=== PATIENT | male | born 1960 | race Caucasian/White ===

== ENCOUNTER → 2016-06-09 | Outpatient (CLI) | payer OTHER ==
--- NOTE | 2016-06-09 15:04 | XR ---
EXAMINATION TYPE: XR shoulder complete RT DATE OF EXAM: 06/09/2016 3:00 PM COMPARISON: NONE HISTORY: Pain The osseous structures are intact. There is no acute fracture or dislocation. Hypertrophic change of the AC joint noted. IMPRESSION: 1. AC joint arthropathy with spurs seen extending from the clavicle and acromion.
== END | disposition home or self-care (01) ==
LOC: RADXRMAIN 14:31
PROVIDERS: ATTEND Physician Assistant
DX: M12.811 Other specific arthropathies, not elsewhere classified, right shoulder (principal); M75.91 Shoulder lesion, unspecified, right shoulder

== ENCOUNTER 2016-08-05 11:08 | Emergency (ER) | payer OTHER ==
[2016-08-05] MEDS ORDERED: ONDANSETRON 4 MG/2 ML VIAL IVP STA (12:38)
[2016-08-05] MEDS ORDERED: KETOROLAC 30 MG/ML 1 ML VIAL IVP STA (12:38)
[2016-08-05] MEDS ORDERED: SODIUM CHLORIDE 0.9% 1,000 ML IV ONE (12:39)
--- NOTE | 2016-08-05 12:49 | ED ---
General Adult HPI - General Chief complaint: Urogenital Stated complaint: HEMATURIA Time Seen by Provider: 08/05/16 12:31 Source: patient Mode of arrival: ambulatory Limitations: no limitations - History of Present Illness Initial comments: 56-year-old male patient presents to emergency Department with complaints of right flank pain and hematuria. Patient states that he has had the flank pain for the last 3-4 days, he describes it as a dull achy pain. Patient states this morning with his initial urination he had bright red blood present. Patient states he has continued to have hematuria throughout the day. Patient denies any fever or chills. Reports nausea without vomiting. He states that he did have similar symptoms in the past, but they were unable to find a cause. Patient does have a history significant for prostate cancer s/p prostatectomy. He denies any chest pain, shortness of breath, headache, dizziness, weakness, dysuria, urinary retention, urgency, or frequency - Related Data Home Medications Medication Instructions Recorded Confirmed HYDROcodone/APAP 10-325MG [[place] 1 tab PO QID PRN 08/05/16 08/05/16 10] Naproxen 500 mg PO Q12HR PRN 08/05/16 08/05/16 Previous Rx's Medication Instructions Recorded Ketorolac [Toradol] 10 mg PO Q8HR #15 tab 08/05/16 Ondansetron Odt [Zofran Odt] 4 mg PO Q8HR PRN #10 tab 08/05/16 Allergies Allergy/AdvReac Type Severity Reaction Status Date / Time No Known Allergies Allergy Verified 08/05/16 13:05 Review of Systems ROS Statement: Those systems with pertinent positive or pertinent negative responses have been documented in the HPI. ROS Other: All systems not noted in ROS Statement are negative. Past Medical History Past Medical History: Cancer, COPD, Osteoarthritis (OA), Prostate Disorder Additional Past Medical History / Comment(s): PROSTATE CANCER History of Any Multi-Drug Resistant Organisms: None Reported Past Surgical History: Appendectomy, Orthopedic Surgery, Prostate Surgery Additional Past Surgical History / Comment(s): 06/17/14 Robotic-assisted laparoscopic prostatectomy with bilateral lymphadenectomy, ARTHROSCOPIC RIGHT KNEE, LEFT WRIST,LT ELBOW AND LEFT SHOULDER Past Anesthesia/Blood Transfusion Reactions: No Reported Reaction Past Psychological History: No Psychological Hx Reported Additional Psychological History / Comment(s): Has a long-standing female friend. 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 This work did proceed his surgical intervention. He does not have experience. He does not have travel history. There are no animal exposures. He does not recall any recent ill contacts. Smoking Status: Current every day smoker Past Alcohol Use History: Occasional Past Drug Use History: Marijuana Additional Drug Use History / Comment(s): USED 1 MONTH AGO - Past Family History Father Family Medical History: Unable to Obtain Mother Family Medical History: Diabetes Mellitus General Exam Limitations: no limitations General appearance: alert, in no apparent distress Eye exam: Present: normal appearance, PERRL, EOMI. Absent: scleral icterus, conjunctival injection, periorbital swelling ENT exam: Present: normal exam, mucous membranes moist Neck exam: Present: normal inspection. Absent: tenderness, meningismus, lymphadenopathy Respiratory exam: Present: normal lung sounds bilaterally. Absent: respiratory distress, wheezes, rales, rhonchi, stridor Cardiovascular Exam: Present: regular rate, normal rhythm, normal heart sounds. Absent: systolic murmur, diastolic murmur, rubs, gallop, clicks GI/Abdominal exam: Present: soft, normal bowel sounds. Absent: distended, tenderness, guarding, rebound, rigid Extremities exam: Present: normal inspection, full ROM, normal capillary refill. Absent: tenderness, pedal edema, joint swelling, calf tenderness Back exam: Present: normal inspection. Absent: CVA tenderness (R), CVA tenderness (L) Neurological exam: Present: alert, oriented X3, CN II-XII intact Psychiatric exam: Present: normal affect, normal mood Skin exam: Present: warm, dry, intact, normal color. Absent: rash Course Vital Signs 08/05/16 08/05/16 11:15 14:12 Temperature 97.7 F 98 F Pulse Rate 60 79 Respiratory 18 16 Rate Blood Pressure 157/70 136/78 O2 Sat by Pulse 97 98 Oximetry Medical Decision Making - Medical Decision Making 56-year-old male patient presented to emergency department for evaluation of left flank pain and hematuria. Serum labs are unremarkable. Urine did show large amount of blood. Pain is improved with fluids and pain medication. CT was negative for any nephrolithiasis or hydronephrosis. Patient will be discharged home with pain medication and nausea medication. Instructions to follow up with urologist within 1-2 days. Patient is also instructed to return for any new, worsening, or concerning symptoms. Patient verbalized understanding and agrees with this plan. - Lab Data Result diagrams: 08/05/16 13:00 08/05/16 13:00 Lab Results 08/05/16 08/05/16 08/05/16 Range/Units 13:00 13:00 13:00 WBC 6.8 (3.8-10.6) k/uL RBC 4.96 (4.30-5.90) m/uL Hgb 15.6 (13.0-17.5) gm/dL Hct 45.6 (39.0-53.0) % MCV 91.8 (80.0-100.0) fL MCH 31.4 (25.0-35.0) pg MCHC 34.2 (31.0-37.0) g/dL RDW 12.6 (11.5-15.5) % Plt Count 243 (150-450) k/uL Neutrophils % 50 % Lymphocytes % 36 % Monocytes % 6 % Eosinophils % 4 % Basophils % 2 % Neutrophils # 3.4 (1.3-7.7) k/uL Lymphocytes # 2.5 (1.0-4.8) k/uL Monocytes # 0.4 (0-1.0) k/uL Eosinophils # 0.3 (0-0.7) k/uL Basophils # 0.1 (0-0.2) k/uL Sodium 143 (137-145) mmol/L Potassium 4.7 (3.5-5.1) mmol/L Chloride 106 (98-107) mmol/L Carbon Dioxide 25 (22-30) mmol/L Anion Gap 12 mmol/L BUN 16 (9-20) mg/dL Creatinine 0.86 (0.66-1.25) mg/dL Est GFR (MDRD) Af Amer >60 (>60 ml/min/1.73 sqM) Est GFR (MDRD) Non-Af >60 (>60 ml/min/1.73 sqM) Glucose 125 H (74-99) mg/dL Calcium 9.3 (8.4-10.2) mg/dL Total Bilirubin 0.5 (0.2-1.3) mg/dL AST 22 (17-59) U/L ALT 42 (21-72) U/L Alkaline Phosphatase 77 (38-126) U/L Total Protein 7.4 (6.3-8.2) g/dL Albumin 4.4 (3.5-5.0) g/dL Amylase 62 (30-110) U/L Lipase 201 (23-300) U/L Urine Color Light Red Urine Appearance Clear (Clear) Urine pH 5.0 (5.0-8.0) Ur Specific Stella 1.016 (1.001-1.035) Urine Protein Trace H (Negative) Urine Glucose (UA) Negative (Negative) Urine Ketones Negative (Negative) Urine Blood Large H (Negative) Urine Nitrite Negative (Negative) Urine Bilirubin Negative (Negative) Urine Urobilinogen <2.0 (<2.0) mg/dL Ur Leukocyte Esterase Small H (Negative) Urine RBC >182 H (0-5) /hpf Urine WBC 9 H (0-5) /hpf Urine Mucus Rare H (None) /hpf - Radiology Data Radiology results: report reviewed, image reviewed X-ray KUB impression by Dr. Oconnor states that he is suspicious that there is a left-sided nephrolithiasis. CT of the abdomen and pelvis without contrast reveals no evidence of hydronephrosis or nephrolithiasis. Uncomplicated diverticular change in the left side of the colon. It degenerative changes within the spine. Disposition Clinical Impression: Hematuria, Flank pain Disposition: HOME SELF-CARE Condition: Stable Instructions: Hematuria (ED), Flank Pain (ED) Additional Instructions: Follow-up with urology. Take pain and nausea medication as needed. Increase fluids. Return for any new, worsening, or concerning symptoms. Prescriptions: Ketorolac [Toradol] 10 mg PO Q8HR #15 tab Ondansetron Odt [Zofran Odt] 4 mg PO Q8HR PRN #10 tab PRN Reason: Nausea Referrals: Juan Islas MD [Primary Care Provider] - 1-2 days Juan Rosas MD [STAFF PHYSICIAN] - 1-2 days Time of Disposition: 15:28
[2016-08-05 13:13] LABS: Basophils # (A) 0.1 k/uL (0-0.2); Basophils % (A) 2 %; Eosinophils # (A) 0.3 k/uL (0-0.7); Eosinophils % (A) 4 %; HCT 45.6 % (39.0-53.0); HDW 2.67; HGB 15.6 gm/dL (13.0-17.5); Luc # (Auto) 0.18; Luc % (Auto) 3; Lymphocytes # (A) 2.5 k/uL (1.0-4.8); Lymphocytes % (A) 36 %; MCH 31.4 pg (25.0-35.0); MCHC 34.2 g/dL (31.0-37.0); MCV 91.8 fL (80.0-100.0); Mean Platelet Volume 7.1; Monocytes # (A) 0.4 k/uL (0-1.0); Monocytes % (A) 6 %; Neutrophils # (A) 3.4 k/uL (1.3-7.7); Neutrophils % (A) 50 %; RBC 4.96 m/uL (4.30-5.90); RDW 12.6 % (11.5-15.5); WBC 6.8 k/uL (3.8-10.6); WBC (Perox) 6.99
[2016-08-05 13:22] LABS: Appearance,Urine Clear (Clear); Bilirubin,Urine Negative (Negative); Glucose,Urine (UA) Negative (Negative); Ketones,Urine Negative (Negative); Leukocyte Esterase,Urine Small (Negative); Mucus,Urine Rare /hpf; Nitrite,Urine Negative (Negative); Particle Count 5059; Protein,Urine Trace (Negative); RBC,Urine >182 /hpf (0-5); Specific Gravity,Urine 1.016 (1.001-1.035); UA Billing (MACRO vs. MICRO) MICRO; Urobilinogen,Urine <2.0 mg/dL (<2.0); WBC,Urine 9 /hpf (0-5)
[2016-08-05 13:27] LABS: ALT 42 U/L (21-72); AST 22 U/L (17-59); Alkaline Phosphatase 77 U/L (38-126); Amylase 62 U/L (30-110); Anion Gap 12 mmol/L; Blood Urea Nitrogen 16 mg/dL (9-20); Calcium 9.3 mg/dL (8.4-10.2); Carbon Dioxide 25 mmol/L (22-30); Chloride 106 mmol/L (98-107); Glucose 125 mg/dL (74-99); Non-African American GFR(MDRD) >60 (>60 ml/min/1.73 sqM); Potassium 4.7 mmol/L (3.5-5.1); Sodium 143 mmol/L (137-145); Total Bilirubin 0.5 mg/dL (0.2-1.3); Total Protein 7.4 g/dL (6.3-8.2)
--- NOTE | 2016-08-05 13:33 | XR ---
EXAMINATION TYPE: XR KUB DATE OF EXAM ORDERED: 08/05/2016 1:15 PM HISTORY: Pain. COMPARISON: None. FINDINGS: The abdominal IMPRESSION: I'M SUSPICIOUS THAT THERE IS A LEFT-SIDED NEPHROLITHIASIS.
[2016-08-05 14:12] VITALS: RESP 16; TEMP 98
[2016-08-05] MEDS ORDERED: HYDROmorphone 1 MG/ML 1 ML SYRINGE IVP STA (14:20)
--- NOTE | 2016-08-05 15:23 | CT ---
EXAMINATION TYPE: CT abdomen pelvis wo con DATE OF EXAM: 08/05/2016 1:58 PM COMPARISON: Previous study dated 11/05/2014. HISTORY: Right flank pain. CT DLP: 1270 mGycm Automated exposure control for dose reduction was used. FINDINGS: Visualized portions of the lungs are clear. There is no pleural or pericardial fluid. The h eart is not enlarged. Within the abdomen, the liver, spleen and gallbladder are normal. Both adrenal glands are normal. There is no evidence of nephrolithiasis or hydronephrosis. The pancreas is unremarkable. There is no significant retroperitoneal, iliac or inguinal adenopathy. The bladder is not distended. There is diverticular change in the sigmoid colon and throughout the left side of the colon without r adiographic evidence of diverticulitis. The appendix is not visualized. Small bowel loops appear normal. No free fluid and no free air is seen. There is degenerative disc disease and hypertrophic spondylosis throughout the spine. IMPRESSION: 1. NO EVIDENCE OF HYDRONEPHROSIS OR NEPHROLITHIASIS. 2. UNCOMPLICATED DIVERTICULAR CHANGE IN THE LEFT SIDE OF THE COLON. 3. DEGENERATIVE CHANGES WITHIN THE SPINE.
[2016-08-05 15:51] VITALS: BP 103/55; PULSE 56
== END 2016-08-05 15:50 | disposition home or self-care (01) ==
LOC: EC 11:08
DX: R31.9 Hematuria, unspecified (principal); R10.9 Unspecified abdominal pain; Z85.46 Personal history of malignant neoplasm of prostate; Z90.49 Acquired absence of other specified parts of digestive tract; Z90.79 Acquired absence of other genital organ(s)
CPT/HCPCS: 36415; 80053; 82150; 83690; 85025; 81001; 87086; 74000; 74176; 99284; 96374; 96375 ×2; 96361; J2405; J1885; J1170

== ENCOUNTER 2016-12-14 09:51 | Day surgery (SDC) | payer OTHER ==
[2016-12-13 10:47] VITALS: BMI 40.0
[~2016-12-14 09:51] MED LIST: LACTATED RINGERS 1,000 ML IV SCH
[2016-12-14 10:32] VITALS: RESP 16; TEMP 97.6
[2016-12-14] MEDS ORDERED: LIDOCAINE 1% 20 ML VIAL (10MG/ML) FOR IV START INTRADERMA ONE (10:32)
[2016-12-14 10:35] LABS: Glucose,Whole Blood 133 mg/dL (75-99)
[2016-12-14] MEDS ORDERED: PROPOFOL 10 MG/ML 20 ML VIAL IV ONE (11:17)
[2016-12-14] MEDS ORDERED: LIDOCAINE 1% INJ 10MG/ML (20 ML MDV) ONE (11:17)
--- NOTE | 2016-12-14 11:22 | P.GSHP ---
History of Present Illness H&P Date: 12/14/16 Chief Complaint: GERD, screening colonoscopy This is a 56-year-old male referred from Dr. Juan Islas. Patient presents today for EGD for GERD symptoms. He is also having a colonoscopy performed today for screening purposes. Past Medical History Past Medical History: Cancer, COPD, Diabetes Mellitus, Osteoarthritis (OA), Prostate Disorder Additional Past Medical History / Comment(s): Rectal bleeding and emesis with blood,feeling of fullness,incision hernia,PROSTATE CANCER Dx 2013,borderline diabetes History of Any Multi-Drug Resistant Organisms: None Reported Past Surgical History: Appendectomy, Orthopedic Surgery, Prostate Surgery Additional Past Surgical History / Comment(s): 06/17/14 Robotic-assisted laparoscopic prostatectomy with bilateral lymphadenectomy, ARTHROSCOPIC RIGHT KNEE, LEFT WRIST,LT ELBOW AND LEFT SHOULDER Past Anesthesia/Blood Transfusion Reactions: No Reported Reaction Smoking Status: Current every day smoker - Past Family History Father History Unknown: Yes Family Medical History: Unable to Obtain Mother Family Medical History: Diabetes Mellitus Medications and Allergies Home Medications Medication Instructions Recorded Confirmed Type HYDROcodone/APAP 10-325MG [[place] 1 tab PO QID PRN 08/05/16 12/13/16 History 10] Naproxen 500 mg PO Q12HR PRN 08/05/16 12/13/16 History Allergies Allergy/AdvReac Type Severity Reaction Status Date / Time No Known Allergies Allergy Verified 12/14/16 10:14 Surgical - Exam Vital Signs Temp Pulse Resp BP Pulse Ox 97.6 F 66 16 119/71 95 12/14/16 10:30 12/14/16 10:30 12/14/16 10:30 12/14/16 10:30 12/14/16 10:30 - General well developed, no distress - Eyes PERRL - ENT normal pinna - Neck no masses - Respiratory normal expansion - Cardiovascular Rhythm: regular - Abdomen Abdomen: soft, non tender Results - Labs Abnormal Lab Results - Last 24 Hours (Table) 12/14/16 Range/Units 10:29 POC Glucose (mg/dL) 133 H (75-99) mg/dL Assessment and Plan Plan: GERD. We'll perform EGD. We'll also perform screening colonoscopy.
--- NOTE | 2016-12-14 11:48 | P.OP ---
Date of Procedure: 12/14/16 Preoperative Diagnosis: GERD Screening colonoscopy Postoperative Diagnosis: Antral gastritis Mild esophagitis Diverticulosis Sigmoid colon and rectal polyps Procedure(s) Performed: EGD Colonoscopy Implants: Anesthesia: MAC Surgeon: Nathan Farrell Pathology: other (Rectum, sigmoid polyp) Condition: stable Disposition: PACU Indications for Procedure: Operative Findings: Description of Procedure: A she is placed on the endoscopy table in the lateral position. He received IV sedation. The gastroscope placed oropharynx passed in the esophagus and stomach. Scope was then placed through the pylorus. The first and second portion of the duodenum appeared normal. Scope was then brought back the antrum and this appeared mildly inflamed. A biopsies performed. The scope was retroflexed and remainder of the stomach appeared normal. There was a minimal hiatal hernia. The GE junction was at 40 cms. The distal esophagus was mildly inflamed and a biopsies performed. The proximal esophagus appeared normal. Scope was withdrawn for patient. Next digital rectal exam was performed which revealed no abnormalities. The prostate was symmetrical without nodules. The flexible colonoscope was then placed patient anus passed throughout the entire colon. Ileocecal valve was visually's. The cecum, ascending and transverse colon appeared normal. In the descending colon there was a few scattered diverticula. In the; there is more extensive diverticular changes. There was a polyp seen this removed with the snare. Scope was then brought back the rectum and a small polyp was removed the forcep. The scope was then withdrawn remainder of the rectum appeared normal. Scope was withdrawn for patient.
[2016-12-14 13:00] VITALS: BP 127/76; PULSE 60
== END 2016-12-14 13:05 | disposition home or self-care (01) ==
LOC: ORWHC2ENDO 09:51
PROVIDERS: ATTEND Surgery
DX: Z12.11 Encounter for screening for malignant neoplasm of colon (principal); D12.5 Benign neoplasm of sigmoid colon; K62.1 Rectal polyp; K57.30 Diverticulosis of large intestine without perforation or abscess without bleeding; K21.0 Gastro-esophageal reflux disease with esophagitis; K44.9 Diaphragmatic hernia without obstruction or gangrene; J44.9 Chronic obstructive pulmonary disease, unspecified; E11.9 Type 2 diabetes mellitus without complications; K29.50 Unspecified chronic gastritis without bleeding; Z83.3 Family history of diabetes mellitus; F17.200 Nicotine dependence, unspecified, uncomplicated; Z85.46 Personal history of malignant neoplasm of prostate
CPT/HCPCS: 88305; 88342; 45380; 45385; 43239; J2001; J2704

== ENCOUNTER → 2017-01-30 | Outpatient (CLI) | payer OTHER ==
--- NOTE | 2017-01-30 13:41 | XR ---
EXAMINATION TYPE: XR knee complete bilateral DATE OF EXAM: 01/30/2017 COMPARISON: NONE HISTORY: Pain and swelling TECHNIQUE: Four views are submitted. FINDINGS: Hypertrophic changes and narrowing of the joint spaces are seen bilaterally greater on the right. Pat tern of arthropathy is most typical of osteoarthritis. Soft tissue ossification posterior to the righ t knee noted and there are vascular calcifications. No erosive changes. Osseous structures are intact . No acute fracture seen. IMPRESSION: 1. Moderate to severe bilateral osteoarthritis.
== END ==
LOC: RADXRMAIN 12:23
PROVIDERS: ATTEND Family Medicine
DX: M17.0 Bilateral primary osteoarthritis of knee (principal)

== ENCOUNTER → 2017-02-08 | Outpatient (CLI) | payer OTHER ==
[2017-02-08 12:56] LABS: CH 31.5; CHCM 33.5; HDW 2.53; HGB 15.5 gm/dL (13.0-17.5); MCH 31.1 pg (25.0-35.0); MCHC 32.9 g/dL (31.0-37.0); MCV 94.4 fL (80.0-100.0); Mean Platelet Volume 6.4; RBC 4.98 m/uL (4.30-5.90); WBC 7.6 k/uL (3.8-10.6)
== END | disposition home or self-care (01) ==
LOC: LABPAT 11:55
PROVIDERS: ATTEND Surgery
DX: Z01.810 Encounter for preprocedural cardiovascular examination (principal); I49.9 Cardiac arrhythmia, unspecified
CPT/HCPCS: 36415; 85027; 93005

== ENCOUNTER → 2018-03-07 | Outpatient (CLI) | payer MEDICARE, OTHER ==
[2018-03-07 09:50] LABS: Basophils # (A) 0.1 k/uL (0-0.2); Basophils % (A) 1 %; Eosinophils # (A) 0.2 k/uL (0-0.7); Eosinophils % (A) 4 %; HCT 46.6 % (39.0-53.0); HGB 15.3 gm/dL (13.0-17.5); Lymphocytes % (A) 36 %; MCH 30.5 pg (25.0-35.0); MCHC 32.7 g/dL (31.0-37.0); MCV 93.2 fL (80.0-100.0); Mean Platelet Volume 6.3; Monocytes # (A) 0.4 k/uL (0-1.0); Monocytes % (A) 6 %; Neutrophils # (A) 2.9 k/uL (1.3-7.7); Neutrophils % (A) 50 %; Platelet Count 257 k/uL (150-450); RDW 12.8 % (11.5-15.5); WBC 5.7 k/uL (3.8-10.6)
[2018-03-07 11:45] LABS: Erythrocyte Sedimentation Rate 12 mm/hr (0-15)
[2018-03-07 17:25] LABS: Albumin 4.3 g/dL (3.80-4.90); Albumin/Globulin Ratio 2.05 (1.20-2.10); Anion Gap 8.8 mmol/L (4.00-12.00); Bilirubin, Conjugated 0.2 mg/dL (0.20-0.40); Bilirubin,Unconjugated 0.3 mg/dL; C Reactive Protein 0.6 mg/dL (0.0-0.8); Calcium 8.8 mg/dL (8.7-10.3); Carbon Dioxide 24.2 mmol/L (21.6-31.8); Globulin 2.1 g/dL (2.1-3.7); LDL Cholesterol,Calculated 102.8 mg/dL (0.0-131.0); Potassium 4.6 mmol/L (3.5-5.5); Total Bilirubin 0.5 mg/dL (0.3-1.2); Total Protein 6.4 g/dL (6.2-8.2); VLDL Calculation 14.2 mg/dL (5.00-40.00)
== END | disposition home or self-care (01) ==
LOC: LABWHC1 08:54
PROVIDERS: ATTEND Family Medicine
DX: M13.861 Other specified arthritis, right knee (principal); Z85.46 Personal history of malignant neoplasm of prostate
CPT/HCPCS: 36415; 80048; 80061; 80076; 85025; 85652; 86140

== ENCOUNTER → 2018-03-27 | Outpatient (CLI) | payer MEDICARE, OTHER ==
[~2018-03-27] MED LIST changes: -LACTATED RINGERS 1,000 ML IV SCH; +REGADENOSON 0.4 MG/5 ML SYRINGE IV ONE
--- NOTE | 2018-03-27 12:11 | NM ---
EXAMINATION TYPE: NM stress lexiscan cardiolite DATE OF EXAM: 03/27/2018 COMPARISON: NONE HISTORY: Shortness of breath TECHNIQUE: After the intravenous administration of 10.33 mCi Tc 99m Sestamibi - Cardiolite resting S PECT images acquired 45 minutes post injection. The patient received 0.4mg Lexiscan, 25.3 mCi Tc 99m Sestamibi - Stress images obtained [address] injection FINDINGS: Review of stress and rest SPECT images demonstrates decreased radiopharmaceutical uptake along the in ferolateral left ventricle on stress and rest images, decreased uptake is present on the lateral aspe ct of the left ventricle on stress as compared to rest images in this region. Gated analysis shows n ormal wall motion with an estimated left ventricular ejection fraction of 67 %. 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 Consider echocardiographic correlation for elevated ejection fraction A Yellow level critical message alert has been initiated for Holger Pinto Jr, DO via the [facility] Critical Results System on 03/27/2018 12:08 PM. This message alert has been sent to Holger olivera Jr, DO via the preferences provided by the clinician for the receipt of Radiology Critical Findi ngs. Message ID [id number].
--- NOTE | 2018-03-27 18:50 | EST ---
EXERCISE STRESS DATE OF SERVICE: 03/27/2018 AGE: 58 SEX: Male HT: 5'11" WT: 300 PROTOCOL: Lexiscan Cardiolite STAGE: DURATION OF EXERCISE: HEART RATE REST: 67 BLOOD PRESSURE REST: 135/86 MAXIMUM HEART RATE ACHIEVED: 92 MAXIMUM BLOOD PRESSURE: 135/86 85% MPHR: 100% MPHR: METS: INDICATIONS: Shortness of breath. Chest pain. CLINICAL INFORMATION: STRESS DATA: Pre-testing physical examination showed a heart rate of 67, pressure 135/86 mmHg. Baseline EKG showed sinus mechanism. Lexiscan 0.4 mg was given over 15 seconds per protocol. Maximum heart rate was 92 beats per minute and maximum pressure was 135/86 mmHg. Clinically the patient did not have any symptoms of chest pain or discomfort and the EKG did not show any significant ST or T-wave abnormalities concerning for ischemia. CONCLUSION: 1. Nondiagnostic electrocardiogram stress testing in response to Lexiscan. 2. Please follow up on the Cardiolite portion on separate report from Radiology Department. MMODL / IJN: [id number] /
== END | disposition home or self-care (01) ==
LOC: RADNMMAIN 08:14
PROVIDERS: ATTEND Family Medicine
DX: R06.02 Shortness of breath (principal)
CPT/HCPCS: 93017; 78452; A9500; J2785

== ENCOUNTER → 2018-04-09 | Outpatient (CLI) | payer MEDICARE, OTHER ==
[2018-04-09 09:46] VITALS: BMI 40.6
== END ==
LOC: DBWHC3 08:44
PROVIDERS: ATTEND Family Medicine
DX: E11.65 Type 2 diabetes mellitus with hyperglycemia (principal); Z79.84 Long term (current) use of oral hypoglycemic drugs; Z79.899 Other long term (current) drug therapy
CPT/HCPCS: G0109 ×2

== ENCOUNTER → 2018-04-15 | Outpatient (CLI) | payer MEDICARE, OTHER ==
[2018-04-15 12:54] LABS: HGB 16.2 gm/dL (13.0-17.5); MCH 31.4 pg (25.0-35.0); MCHC 34.4 g/dL (31.0-37.0); MCV 91.1 fL (80.0-100.0); Mean Platelet Volume 6.5; Platelet Count 241 k/uL (150-450); RBC 5.16 m/uL (4.30-5.90); RDW 12.9 % (11.5-15.5); WBC 7.3 k/uL (3.8-10.6)
[2018-04-15 13:04] LABS: Anion Gap 10 mmol/L; Blood Urea Nitrogen 17 mg/dL (9-20); Carbon Dioxide 26 mmol/L (22-30); Chloride 103 mmol/L (98-107); Glucose 221 mg/dL (74-99); Magnesium 1.9 mg/dL (1.6-2.3); Potassium 4.8 mmol/L (3.5-5.1); Sodium 139 mmol/L (137-145)
== END ==
LOC: LABWHC1 12:10
PROVIDERS: ATTEND Internal Medicine Interventional Cardiology
DX: Z01.812 Encounter for preprocedural laboratory examination (principal); E11.9 Type 2 diabetes mellitus without complications; E78.2 Mixed hyperlipidemia; R94.39 Abnormal result of other cardiovascular function study
CPT/HCPCS: 36415; 80051; 82565; 82947; 83735; 84520; 85027

== ENCOUNTER 2018-04-19 06:18 | Day surgery (SDC) | payer MEDICARE, OTHER ==
[2018-04-17 11:11] VITALS: BMI 41.3
[2018-04-19] MEDS ORDERED: ALPRAZolam 0.5 MG TAB PO PRN (06:32)
[2018-04-19] MEDS ORDERED: NITROGLYCERIN SL TABS 0.4 MG TAB SUBLINGUAL PRN (06:32)
[2018-04-19] MEDS ORDERED: ALPRAZolam 0.25 MG TAB PO PRN (06:32)
[2018-04-19] MEDS ORDERED: SODIUM CHLORIDE 0.9% 1,000 ML in EMPTY BAG 1 BAG IV ONE (06:32)
[2018-04-19] MEDS ORDERED: ATORVASTATIN 80 MG TAB PO ONE (07:00)
[2018-04-19] MEDS ORDERED: ASPIRIN 325 MG TAB PO ONE (07:00)
[2018-04-19 07:18] VITALS: RESP 16; TEMP 98.3
[2018-04-19] MEDS ORDERED: VERAPAMIL 2.5 MG/ML 2 ML AMP ONE (07:21)
[2018-04-19 07:22] LABS: Glucose,Whole Blood 234 mg/dL (75-99)
[2018-04-19] MEDS ORDERED: fentaNYL (PF) 50 MCG/ML 2 ML AMP ONE (07:22)
[2018-04-19] MEDS ORDERED: fentaNYL (PF) 50 MCG/ML 2 ML AMP IVP ONE (07:49)
[2018-04-19] MEDS ORDERED: LIDOCAINE 2% INJ 20 MG/ML SQ ONE (08:01)
[2018-04-19] MEDS ORDERED: MIDAZOLAM 2 MG/2 ML VIAL IVP ONE (08:01)
[2018-04-19] MEDS ORDERED: VERAPAMIL SYRINGE (5 MG/10 ML) IVP ONE (08:02)
[2018-04-19] MEDS ORDERED: HEPARIN SODIUM 1,000 UN/ML (10ML VL) ONE (08:09)
[2018-04-19] MEDS ORDERED: HEPARIN SODIUM 1,000 UN/ML (10ML VL) IV ONE (08:10)
[2018-04-19] MEDS ORDERED: IOPAMIDOL-370 125ML BTL INJ ONE ×2 (08:13)
[2018-04-19] MEDS ORDERED: RX INFO: IV CONTRAST WAS GIVEN 1 EACH MISC MISCELLANE PRN (08:26)
[2018-04-19] MEDS ORDERED: SODIUM CHLORIDE 0.9% 1,000 ML IV SCH (08:30)
--- NOTE | 2018-04-19 08:46 | CC ---
CARDIAC CATHETERIZATION REPORT Mr. Johnson is a 58-year-old male with prior history of smoking who presented with symptoms of progressive dyspnea on exertion. He had an abnormal myocardial perfusion imaging. In view of that, recommendation was made regarding cardiac catheterization. The procedure as well as the risks and the complications were discussed with the patient who is in full understanding and agreement. PROCEDURE: Patient was brought to cardiac cath lab radiology technologist in a fasting semi-sedated state after receiving fentanyl and Benadryl and achieving moderate conscious sedated state. Using Xylocaine anesthesia in the Seldinger technique, a 6-Gibraltarian sheath was introduced in the right radial artery. Selective right and left angiography performed using 5-Gibraltarian, 3.5 bend right and left Margarito catheter. Multiple views of the coronary artery including hemiaxial views were obtained. Following that 5-Gibraltarian tight pigtail catheter was introduced in the left ventricle and a 30-degree HUMPHRIES view of the left ventricle was obtained. Following that, catheter and sheath were removed. Hemostasis was obtained with deployment of a TR band. There was no immediate complication. Patient was returned to his room in stable condition. Of note, the patient received 5000 units of intravenous heparin as well as intra-arterial verapamil. FINDINGS: FLUOROSCOPY: There was severe calcification involving the left anterior descending artery proximally. LEFT MAIN: This is a short size vessel bifurcating in left circumflex and left anterior descending artery. Left main coronary artery has no evidence of high-grade stenosis. LEFT ANTERIOR DESCENDING ARTERY: This is a large-sized vessel reaching to the apex with a wraparound apex segment giving rise to two diagonal branches of small to moderate caliber. The left anterior descending artery is heavily calcified proximally. It has a 20% plaque in the mid segment. The rest of the vessel has no high-grade stenosis. LEFT CIRCUMFLEX: This is a nondominant vessel giving rise to a large obtuse marginal branch proximally. The left circumflex as well as branches have no evidence of obstructive coronary artery disease. RIGHT CORONARY ARTERY: This is a large dominant vessel bifurcating distally PDA and posterolateral segment and branches. Had a mild intimal disease in the mid segment of 10% to 20%. The rest of the vessel has no high-grade stenosis. LEFT VENTRICULOGRAM: Left ventriculogram was performed in 30-degree HU[place]RIES view and revealed normal left ventricular size and systolic function. Ejection fraction is 60%. There was no significant mitral regurgitation. HEMODYNAMICS: There was no gradient across the aortic valve. The ventricular end- diastolic pressure is 8 to 12 mmHg. CONCLUSION: 1. Heavily calcified coronary arteries. 2. Mild intimal disease involving the mid left anterior descending artery and mid right coronary artery. 3. Normal left ventricular size and systolic function. RECOMMENDATION: In view of finding anatomy, I recommend continue medical therapy with aggressive coronary risk modifications that have been initiated. Those findings and recommendation were discussed with the patient and his family and they in full understanding and agreement. Duration of procedure is 15 minutes. MMODL / IJN: [id number] /
[2018-04-19] MEDS ORDERED: SULFAMETHOX-TMP 800-160MG 1 EACH TAB PO SCH (09:00)
[2018-04-19] MEDS ORDERED: NON-FORMULARY DRUG (Sitagliptin 100 MG) PO SCH (09:00)
[2018-04-19] MEDS ORDERED: NON-FORMULARY DRUG (Aspirin [Adult Low Dose Aspirin Ec] 81 MG) PO SCH (09:00)
[2018-04-19] MEDS ORDERED: LISINOPRIL 5 MG TAB PO SCH (09:00)
[2018-04-19 13:14] VITALS: BP 106/62; PULSE 68
[2018-04-19] MEDS ORDERED: ATORVASTATIN 10 MG TAB PO SCH (21:00)
== END 2018-04-19 13:19 | disposition home or self-care (01) ==
LOC: CATHCVL 06:18
PROVIDERS: ATTEND Internal Medicine Interventional Cardiology
DX: I25.10 Atherosclerotic heart disease of native coronary artery without angina pectoris (principal); I25.84 Coronary atherosclerosis due to calcified coronary lesion; I10 Essential (primary) hypertension; E78.5 Hyperlipidemia, unspecified; E11.9 Type 2 diabetes mellitus without complications; Z87.891 Personal history of nicotine dependence; Z79.82 Long term (current) use of aspirin
CPT/HCPCS: 93458; 99152; C1894; C1769; J2001; J2250; J3010; J1644; Q9967

== ENCOUNTER → 2018-12-31 | Outpatient (CLI) | payer MEDICARE, OTHER ==
--- NOTE | 2018-12-31 15:47 | XR ---
EXAMINATION TYPE: XR KUB DATE OF EXAM: 12/31/2018 COMPARISON: NONE HISTORY: Right abdominal TECHNIQUE: One view abdominal series FINDINGS: The osseous structures are intact. The bowel gas pattern is nonspecific. Hypertrophic and degenerati ve change of the spine. Arthropathy of the hips. Vague calcification left upper pelvis likely vascula r. Renal outlines: No definite renal calcification seen. IMPRESSION: 1. No definite suspicious calculus identified.
== END | disposition home or self-care (01) ==
LOC: RADXRMAIN 14:46
PROVIDERS: ATTEND Urology
DX: N23 Unspecified renal colic (principal)
CPT/HCPCS: 74018

== ENCOUNTER → 2019-01-10 | Outpatient (CLI) | payer MEDICARE ==
--- NOTE | 2019-01-10 08:51 | CT ---
EXAMINATION TYPE: CT abdomen pelvis wo con DATE OF EXAM: 01/10/2019 COMPARISON: 08/05/2016 HISTORY: 58-year-old male Renal Colic CT DLP: 1440.0 mGycm. Automated exposure control for dose reduction was used. TECHNIQUE: Contiguous axial scanning of the abdomen and pelvis without IV contrast. Coronal and sagit angela reconstructions performed. FINDINGS: Heart normal size without pericardial effusion. Couple emphysematous cysts in the visualized lower lungs. No pleural effusion. Liver enlarged at 20.9 cm with slightly low attenuation and some fatty sparing along the gallbladder fossa. Noncontrast appearance of the gallbladder, adrenal glands, kidneys, spleen, and pancreas show no piter s abnormality. No nephrolithiasis or hydronephrosis is seen. Perinephric stranding could represent senescent change or chronic kidney disease. No dilated small bowel, free fluid, or free air. No mesenteric or retroperitoneal lymphadenopathy. Mild overall stool burden. Left-sided colonic diverticulosis, greatest in the proximal to mid sigmoid colon. No pericolonic inflammatory change seen. Bladder not distended. No abnormal fluid collection in the pelvis or pelvic lymphadenopathy. Degenerative changes at the hips. Posttraumatic versus post surgical deformity anterior left iliac wi ng. Moderate to advanced degenerative disc disease mid to lower lumbar spine along with hypertrophic facet arthropathy. Grade 1 retrolisthesis at L2-L3 and L3-L4. IMPRESSION: 1. No nephrolithiasis or hydronephrosis. 2. Hepatomegaly (20.9 cm) with hepatic steatosis. 3. Left-sided clonic diverticulosis, extensive within the proximal to mid sigmoid. No evidence for a cute diverticulitis.
== END ==
LOC: RADCTMAIN 07:49
PROVIDERS: ATTEND Urology
DX: K76.0 Fatty (change of) liver, not elsewhere classified (principal); K57.30 Diverticulosis of large intestine without perforation or abscess without bleeding; R16.0 Hepatomegaly, not elsewhere classified
CPT/HCPCS: 74176

== ENCOUNTER 2019-05-08 13:03 | Emergency (ER) | payer MEDICARE ==
[2019-05-08] MEDS ORDERED: ACETAMINOPHEN TAB 325 MG TAB PO STA (17:05)
--- NOTE | 2019-05-08 17:14 | US ---
EXAMINATION TYPE: US venous doppler duplex LE RT DATE OF EXAM: 05/08/2019 4:51 PM COMPARISON: NONE CLINICAL HISTORY: pain hx of vte. No swelling or redness. Popliteal pain. No blood thinners. SIDE PERFORMED: Right TECHNIQUE: The lower extremity deep venous system is examined utilizing real time linear array sonog bee with graded compression, doppler sonography and color-flow sonography. VESSELS IMAGED: External Iliac Vein (EIV) Common Femoral Vein Deep Femoral Vein Greater Saphenous Vein * Femoral Vein Popliteal Vein Small Saphenous Vein * Proximal Calf Veins (* superficial vessels) Right Leg: Negative for DVT IMPRESSION: No evidence of deep venous thrombosis in the right leg.
--- NOTE | 2019-05-08 17:19 | US ---
EXAMINATION TYPE: US venous doppler duplex UE RT DATE OF EXAM: 05/08/2019 COMPARISON: NONE CLINICAL HISTORY: pain hx of vte. Right forearm pain. No redness. No swelling. Not on blood thinne rs. SIDE PERFORMED: Right Right Arm: Negative for DVT IMPRESSION: There is no evidence of deep venous thrombosis in the right arm.
[2019-05-08 18:31] LABS: Basophils # (A) 0.1 k/uL (0-0.2); Basophils % (A) 1 %; Eosinophils # (A) 0.2 k/uL (0-0.7); Eosinophils % (A) 3 %; HCT 46.8 % (39.0-53.0); HGB 16.6 gm/dL (13.0-17.5); Lymphocytes # (A) 2.7 k/uL (1.0-4.8); Lymphocytes % (A) 33 %; MCH 32.5 pg (25.0-35.0); MCHC 35.5 g/dL (31.0-37.0); MCV 91.4 fL (80.0-100.0); Mean Platelet Volume 6.9; Monocytes # (A) 0.5 k/uL (0-1.0); Monocytes % (A) 6 %; Neutrophils # (A) 4.4 k/uL (1.3-7.7); Neutrophils % (A) 55 %; Platelet Count 274 k/uL (150-450); RBC 5.12 m/uL (4.30-5.90); RDW 12.6 % (11.5-15.5); WBC 8.1 k/uL (3.8-10.6)
[2019-05-08 18:36] LABS: Appearance,Urine Clear (Clear); Bilirubin,Urine Negative (Negative); Blood,Urine Negative (Negative); Color,Urine Yellow; Glucose,Urine (UA) Negative (Negative); Ketones,Urine Trace (Negative); Leukocyte Esterase,Urine Small (Negative); Mucus,Urine Occasional /hpf; Nitrite,Urine Negative (Negative); Protein,Urine Negative (Negative); RBC,Urine <1 /hpf (0-5); Specific Gravity,Urine 1.028 (1.001-1.035); Squamous Epithelial Cell,Urine 1 /hpf (0-4); Urobilinogen,Urine <2.0 mg/dL (<2.0); WBC,Urine 6 /hpf (0-5)
[2019-05-08 18:40] LABS: ALT 60 U/L (4-49); AST 38 U/L (17-59); African American GFR (CKD) >90 (>60 ml/min/1.73 sqM); Albumin 4.8 g/dL (3.5-5.0); Alkaline Phosphatase 79 U/L (38-126); Anion Gap 10 mmol/L; Blood Urea Nitrogen 12 mg/dL (9-20); Calcium 9.9 mg/dL (8.4-10.2); Carbon Dioxide 27 mmol/L (22-30); Chloride 104 mmol/L (98-107); Glucose 111 mg/dL (74-99); Non-African American GFR(CKD) >90 (>60 ml/min/1.73 sqM); Potassium 3.7 mmol/L (3.5-5.1); Sodium 141 mmol/L (137-145); Total Bilirubin 0.8 mg/dL (0.2-1.3); Total Protein 8.1 g/dL (6.3-8.2)
--- NOTE | 2019-05-08 19:34 | XR ---
EXAMINATION TYPE: XR KUB DATE OF EXAM: 05/08/2019 COMPARISON: 12/31/2018 HISTORY: Renal stones TECHNIQUE: 2 views upright FINDINGS: There is no sign of intestinal obstruction or pneumoperitoneum. Fecal pattern is normal. I see no definite calculi over the kidneys. There is no evidence of a mass. IMPRESSION: Nonacute abdomen. No adverse change.
--- NOTE | 2019-05-08 20:03 | ED ---
General Adult HPI - General Chief complaint: Extremity Problem,Nontraumatic Stated complaint: Burning sensation in arm Time Seen by Provider: 05/08/19 14:58 Source: patient, RN notes reviewed, old records reviewed Mode of arrival: ambulatory Limitations: no limitations - History of Present Illness Initial comments: 59-year-old male patient presents to ED for chief complaint of pain and burning and right forearm, also pain in right leg. 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 Denies any other complaints at this time. Denies chest pain or shortness of breath. Systemic: Pt denies fatigue, fever/chills, rash. Pt denies weakness, night swea ts, weight loss. Neuro: Pt denies headache, visual disturbances, syncope or pre-syncope. HEENT: Pt denies ocular discharge or irritation, otalgia, rhinorrhea, pharyngitis or notable lymphadenopathy. Cardiopulmonary: Pt denies chest pain, SOB, heart palpitations, dyspnea on exertion. Abdominal/GI: Pt denies abdominal pain, n/v/d. : Pt denies dysuria, burning w/ urination, frequency/urgency. Denies new onset urinary or bowel incontinence. MSK: Pt denies myalgia, loss of strength or function in extremities. Neuro: Pt denies new onset weakness, paresthesias. - Related Data Home Medications Medication Instructions Recorded Confirmed metFORMIN HCL [Glucophage] 500 mg PO W/LUNCH 04/09/18 04/19/18 Atorvastatin [Lipitor] 10 mg PO HS 04/17/18 04/19/18 Lisinopril [Zestril] 5 mg PO QAM 04/17/18 04/19/18 Sulfamethox-Tmp 800-160Mg [Bactrim 1 tab PO BID 04/17/18 04/19/18 DS 800-160 mg] sitaGLIPtin [Januvia] 100 mg PO QAM 04/17/18 04/19/18 Aspirin [Adult Low Dose Aspirin EC] 81 mg PO DAILY 04/19/18 04/19/18 Previous Rx's Medication Instructions Recorded Cephalexin [Keflex] 500 mg PO Q6HR 7 Days #28 cap 05/08/19 Tamsulosin [Flomax] 0.4 mg PO DAILY #10 cap 05/08/19 Allergies Allergy/AdvReac Type Severity Reaction Status Date / Time No Known Allergies Allergy Verified 04/17/18 11:00 Review of Systems ROS Statement: Those systems with pertinent positive or pertinent negative responses have been documented in the HPI. ROS Other: All systems not noted in ROS Statement are negative. Past Medical History Past Medical History: Cancer, Diabetes Mellitus, Deep Vein Thrombosis (DVT), Osteoarthritis (OA), Prostate Disorder Additional Past Medical History / Comment(s): PROSTATE CANCER, Hx. of kidney stones, had a cold last week and was on a zpak. History of Any Multi-Drug Resistant Organisms: None Reported Past Surgical History: Appendectomy, Orthopedic Surgery, Prostate Surgery Additional Past Surgical History / Comment(s): 06/17/14 Robotic-assisted laparoscopic prostatectomy with bilateral lymphadenectomy, ARTHROSCOPIC RIGHT KNEE, LEFT WRIST,LT ELBOW AND LEFT SHOULDER, abd hernia Past Anesthesia/Blood Transfusion Reactions: No Reported Reaction Past Psychological History: No Psychological Hx Reported Smoking Status: Light tobacco smoker Past Alcohol Use History: None Reported Past Drug Use History: Marijuana - Past Family History Father Family Medical History: Unable to Obtain Mother Family Medical History: Diabetes Mellitus General Exam - General Exam Comments Initial Comments: Constitutional: NAD, AOX3, Pt has pleasant affect. HEENT: NC/AT, trachea midline, neck supple, no lymphadenopathy. Posterior pharynx non erythematous, without exudates. External ears appear normal, without discharge. Mucous membranes moist. Eyes PERRLA, EOM intact. There is no scleral icterus. No pallor noted. Cardiopulmonary: RRR, no murmurs, rubs or gallops, no JVD noted. Lungs CTAB in anterior and posterior castanon. No peripheral edema. Abdominal exam: Abdomen soft and non-distended. Abdomen non-tender to palpation in all 4 quadrants. Bowel sounds active in LLQ. No hepatosplenomegaly. No ecchymosis. Right flank mild tenderness to palpation. Neuro: CN II-XII grossly intact. No nuchal rigidity. No raccon eyes, no santillan sign, no hemotympanum. No cervical spinal tenderness. MSK: No posterior calf tenderness bilaterally, homans sign negative bilaterally. Posterior tibialis and radial pulse +2 bilaterally. Sensation intact in upper and lower extremities. Full active ROM in upper and lower extremities, 5/5 stregnth. Limitations: no limitations Course Vital Signs 05/08/19 05/08/19 05/08/19 13:27 14:44 15:00 Temperature 98.3 F 98.3 F 98.7 F Pulse Rate 84 70 69 Respiratory 22 15 15 Rate Blood Pressure 128/84 119/78 115/71 O2 Sat by Pulse 95 97 95 Oximetry 05/08/19 05/08/19 05/08/19 16:00 16:56 18:00 Temperature 98.4 F 97.5 F L Pulse Rate 73 69 58 L Respiratory 18 17 15 Rate Blood Pressure 114/98 109/70 128/79 O2 Sat by Pulse 95 96 95 Oximetry 05/08/19 05/08/19 05/08/19 19:00 20:00 20:15 Temperature 98.9 F 98.2 F Pulse Rate 65 71 Respiratory 18 16 Rate Blood Pressure 119/78 118/77 O2 Sat by Pulse 96 99 Oximetry Medical Decision Making - Medical Decision Making 59-year-old male patient presents to ED for chief complaint of pain and burning and right forearm, also pain in right leg. 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 Denies any other complaints at this time. Denies chest pain or shortness of breath. Pt VSS, afebrile. Upon repeat evlauation patient complaints of, right flank pain. Patient reports this pain has been ongoing since October. Patient reports that he has had extensive investigations including CAT scan and MRI of his low back they have all been benign. Patient does have history of prostate cancer. Reports history of kidney stones years back. Physical exam displayed mild right flank tenderness to palpation. No skin changes. Initial workup consisted of ultrasound of right upper extremity, right lower extremity. These were negative. Upon the complaint of flank pain laboratory investigations and urine were evaluated. CBC CMP overall unimpressive, UA displayed 6 white cells small leukocye esterase. Patient was placed on antibiotics. Will be treated empirically for Flomax for possibility of urinary tract infection. To follow-up with primary care provider and urology tomorrow. Case discussed with Dr. Monique. - Lab Data Result diagrams: 05/08/19 18:17 05/08/19 18:17 Lab Results 05/08/19 05/08/19 05/08/19 Range/Units 18:17 18:17 18:17 WBC 8.1 (3.8-10.6) k/uL RBC 5.12 (4.30-5.90) m/uL Hgb 16.6 (13.0-17.5) gm/dL Hct 46.8 (39.0-53.0) % MCV 91.4 (80.0-100.0) fL MCH 32.5 (25.0-35.0) pg MCHC 35.5 (31.0-37.0) g/dL RDW 12.6 (11.5-15.5) % Plt Count 274 (150-450) k/uL Neutrophils % 55 % Lymphocytes % 33 % Monocytes % 6 % Eosinophils % 3 % Basophils % 1 % Neutrophils # 4.4 (1.3-7.7) k/uL Lymphocytes # 2.7 (1.0-4.8) k/uL Monocytes # 0.5 (0-1.0) k/uL Eosinophils # 0.2 (0-0.7) k/uL Basophils # 0.1 (0-0.2) k/uL Sodium 141 (137-145) mmol/L Potassium 3.7 (3.5-5.1) mmol/L Chloride 104 (98-107) mmol/L Carbon Dioxide 27 (22-30) mmol/L Anion Gap 10 mmol/L BUN 12 (9-20) mg/dL Creatinine 0.84 (0.66-1.25) mg/dL Est GFR (CKD-EPI)AfAm >90 (>60 ml/min/1.73 sqM) Est GFR (CKD-EPI)NonAf >90 (>60 ml/min/1.73 sqM) Glucose 111 H (74-99) mg/dL Plasma Lactic Acid Sedrick (0.7-2.0) mmol/L Calcium 9.9 (8.4-10.2) mg/dL Total Bilirubin 0.8 (0.2-1.3) mg/dL AST 38 (17-59) U/L ALT 60 H (4-49) U/L Alkaline Phosphatase 79 (38-126) U/L Total Protein 8.1 (6.3-8.2) g/dL Albumin 4.8 (3.5-5.0) g/dL Urine Color Yellow Urine Appearance Clear (Clear) Urine pH 5.0 (5.0-8.0) Ur Specific Reading 1.028 (1.001-1.035) Urine Protein Negative (Negative) Urine Glucose (UA) Negative (Negative) Urine Ketones Trace H (Negative) Urine Blood Negative (Negative) Urine Nitrite Negative (Negative) Urine Bilirubin Negative (Negative) Urine Urobilinogen <2.0 (<2.0) mg/dL Ur Leukocyte Esterase Small H (Negative) Urine RBC <1 (0-5) /hpf Urine WBC 6 H (0-5) /hpf Ur Squamous Epith Cells 1 (0-4) /hpf Urine Mucus Occasional H (None) /hpf 05/08/19 Range/Units 18:40 WBC (3.8-10.6) k/uL RBC (4.30-5.90) m/uL Hgb (13.0-17.5) gm/dL Hct (39.0-53.0) % MCV (80.0-100.0) fL MCH (25.0-35.0) pg MCHC (31.0-37.0) g/dL RDW (11.5-15.5) % Plt Count (150-450) k/uL Neutrophils % % Lymphocytes % % Monocytes % % Eosinophils % % Basophils % % Neutrophils # (1.3-7.7) k/uL Lymphocytes # (1.0-4.8) k/uL Monocytes # (0-1.0) k/uL Eosinophils # (0-0.7) k/uL Basophils # (0-0.2) k/uL Sodium (137-145) mmol/L Potassium (3.5-5.1) mmol/L Chloride (98-107) mmol/L Carbon Dioxide (22-30) mmol/L Anion Gap mmol/L BUN (9-20) mg/dL Creatinine (0.66-1.25) mg/dL Est GFR (CKD-EPI)AfAm (>60 ml/min/1.73 sqM) Est GFR (CKD-EPI)NonAf (>60 ml/min/1.73 sqM) Glucose (74-99) mg/dL Plasma Lactic Acid Sedrick 1.0 (0.7-2.0) mmol/L Calcium (8.4-10.2) mg/dL Total Bilirubin (0.2-1.3) mg/dL AST (17-59) U/L ALT (4-49) U/L Alkaline Phosphatase (38-126) U/L Total Protein (6.3-8.2) g/dL Albumin (3.5-5.0) g/dL Urine Color Urine Appearance (Clear) Urine pH (5.0-8.0) Ur Specific Reading (1.001-1.035) Urine Protein (Negative) Urine Glucose (UA) (Negative) Urine Ketones (Negative) Urine Blood (Negative) Urine Nitrite (Negative) Urine Bilirubin (Negative) Urine Urobilinogen (<2.0) mg/dL Ur Leukocyte Esterase (Negative) Urine RBC (0-5) /hpf Urine WBC (0-5) /hpf Ur Squamous Epith Cells (0-4) /hpf Urine Mucus (None) /hpf Disposition Clinical Impression: Myalgia, Flank pain Disposition: HOME SELF-CARE Condition: Stable Instructions (If sedation given, give patient instructions): Flank Pain (ED) Additional Instructions: Follow-up with primary care provider tomorrow. Take antibiotics as directed. Return to ER immediately if condition worsens in any way. Prescriptions: Tamsulosin [Flomax] 0.4 mg PO DAILY #10 cap Cephalexin [Keflex] 500 mg PO Q6HR 7 Days #28 cap Is patient prescribed a controlled substance at d/c from ED?: No Referrals: Holger Pinto Jr, [Primary Care Provider] - 1-2 days Juan Rosas MD [Family Provider] - 1-2 days
[2019-05-08 20:05] VITALS: BP 118/77; PULSE 71; RESP 16
[2019-05-08 20:17] VITALS: TEMP 98.2
== END 2019-05-08 20:15 | disposition home or self-care (01) ==
LOC: EC 13:03
DX: M79.10 Myalgia, unspecified site (principal); R10.9 Unspecified abdominal pain; M79.631 Pain in right forearm; M79.604 Pain in right leg; E11.9 Type 2 diabetes mellitus without complications; F17.200 Nicotine dependence, unspecified, uncomplicated; Z86.718 Personal history of other venous thrombosis and embolism; Z86.711 Personal history of pulmonary embolism; Z85.46 Personal history of malignant neoplasm of prostate; Z87.442 Personal history of urinary calculi; Z79.82 Long term (current) use of aspirin; Z79.84 Long term (current) use of oral hypoglycemic drugs; Z79.899 Other long term (current) drug therapy
CPT/HCPCS: 36415; 74018; 80053; 81001; 83605; 85025; 99284

== ENCOUNTER → 2019-06-06 | Outpatient (CLI) | payer MEDICARE ==
--- NOTE | 2019-06-06 08:24 | CT ---
EXAMINATION TYPE: CT abdomen pelvis wo con DATE OF EXAM: 06/06/2019 COMPARISON: 01/10/19 HISTORY: Unspecified renal colic, low back pain CT DLP: 1568 mGycm Examination of the solid and hollow viscera is limited given the lack of contrast. FINDINGS: LUNG BASES: No evidence for nodule. No evidence for infiltrate. LIVER/GB: The gallbladder is unremarkable. No space-occupying hepatic lesion. PANCREAS: No pancreatic mass identified. No inflammatory process seen. SPLEEN: No evidence for splenomegaly. No intrasplenic lesions seen. ADRENALS: No adrenal nodules identified. No evidence for thickening. KIDNEYS: No evidence for renal mass. No nephrolithiasis. No hydronephrosis. BOWEL: Appendix has a normal appearance. No evidence of bowel obstruction. No inflammatory process. D iverticulosis without diverticulitis Lymph nodes: No evidence for adenopathy greater than 1 cm. Abdominal aorta: Atheromatous changes seen. No evidence for aneurysm. Genital organs: No significant abnormality. Other: severe degenerative changes IMPRESSION: No significant abnormalities
--- NOTE | 2019-06-06 08:46 | CT ---
EXAMINATION TYPE: CT lumbar spine wo con DATE OF EXAM: 06/06/2019 COMPARISON: none HISTORY: Unspecified renal colic, low back pain Unenhanced CT of the lumbar spine was performed. Bone and soft tissue window settings are submitted as well as coronal and sagittal reconstructions. L1-L2: Normal disc space height. No disc herniation protrusion or central stenosis. No facet joint arthropathy. No evidence for foraminal encroachment. L2-L3: Vacuum disc noted. Posterior disc bulge. Hypertrophy of ligamentum flavum and facet joint arth ropathy result in mild central stenosis and bilateral foraminal encroachment. Ventral spondylosis. L3-L4: Vacuum disc noted. Posterior disc bulge. Hypertrophy of ligamentum flavum and facet joint arth ropathy result in moderate central stenosis and bilateral foraminal encroachment. Ventral spondylosis . L4-L5: Vacuum disc noted. Posterior disc bulge. Hypertrophy of ligamentum flavum and facet joint arth ropathy result in moderate central stenosis and bilateral foraminal encroachment. Ventral spondylosis . L5-S1: Vacuum disc with a moderate posterior disc bulge. Bilateral lateral recess stenosis and forami nal encroachment. No evidence for central stenosis. Ventral spondylosis. No paraspinal masses are identified. Lumbar segments are free if fracture. IMPRESSION: 1. Bilateral degenerative disc disease and central stenosis as discussed.
== END | disposition home or self-care (01) ==
LOC: RADCTMAIN 06:50
PROVIDERS: ATTEND Family Medicine
DX: M48.061 Spinal stenosis, lumbar region without neurogenic claudication (principal); M51.36 Other intervertebral disc degeneration, lumbar region; N23 Unspecified renal colic
CPT/HCPCS: 72131; 74176

== ENCOUNTER 2019-10-12 15:21 | Emergency (ER) | payer MEDICARE ==
[2019-10-12 15:32] VITALS: PULSE 56
--- NOTE | 2019-10-12 16:00 | ED ---
General Adult HPI - General Chief complaint: Extremity Injury, Lower Stated complaint: R Foot Swelling Time Seen by Provider: 10/12/19 15:38 Source: patient, RN notes reviewed Mode of arrival: ambulatory Limitations: no limitations - History of Present Illness Initial comments: 59-year-old male presents to the emergency department for a chief complaint of bruising to the right foot. Patient states yesterday he had a red spot on the top of his foot that was swollen. When he woke up today he noticed his foot looked like it was bruised. States it has improved since this morning. Patient denies injuring the foot. Denies any difficulty ambulating on the foot. Does admit that his calf feels a little swollen as well. Patient did have cellulitic infection of the right tib-fib area 6 weeks ago but has not had any problems with that since. No fevers or chills. Patient has no other complaints at this time including shortness of breath, chest pain, abdominal pain, nausea or vomiting, headache, or visual changes. - Related Data Home Medications Medication Instructions Recorded Confirmed metFORMIN HCL [Glucophage] 500 mg PO W/LUNCH 04/09/18 04/19/18 Atorvastatin [Lipitor] 10 mg PO HS 04/17/18 04/19/18 Lisinopril [Zestril] 5 mg PO QAM 04/17/18 04/19/18 Sulfamethox-Tmp 800-160Mg [Bactrim 1 tab PO BID 04/17/18 04/19/18 DS 800-160 mg] sitaGLIPtin [Januvia] 100 mg PO QAM 04/17/18 04/19/18 Aspirin [Adult Low Dose Aspirin EC] 81 mg PO DAILY 04/19/18 04/19/18 Previous Rx's Medication Instructions Recorded Cephalexin [Keflex] 500 mg PO Q6HR 7 Days #28 cap 05/08/19 Tamsulosin [Flomax] 0.4 mg PO DAILY #10 cap 05/08/19 Allergies Allergy/AdvReac Type Severity Reaction Status Date / Time No Known Allergies Allergy Verified 10/12/19 15:31 Review of Systems ROS Statement: Those systems with pertinent positive or pertinent negative responses have been documented in the HPI. ROS Other: All systems not noted in ROS Statement are negative. Past Medical History Past Medical History: Cancer, Diabetes Mellitus, Deep Vein Thrombosis (DVT), Osteoarthritis (OA), Prostate Disorder Additional Past Medical History / Comment(s): PROSTATE CANCER, Hx. of kidney stones History of Any Multi-Drug Resistant Organisms: None Reported Past Surgical History: Appendectomy, Orthopedic Surgery, Prostate Surgery Additional Past Surgical History / Comment(s): 06/17/14 Robotic-assisted laparoscopic prostatectomy with bilateral lymphadenectomy, ARTHROSCOPIC RIGHT KNEE, LEFT WRIST,LT ELBOW AND LEFT SHOULDER, abd hernia Past Anesthesia/Blood Transfusion Reactions: No Reported Reaction Past Psychological History: No Psychological Hx Reported Smoking Status: Former smoker Past Alcohol Use History: None Reported, Occasional Past Drug Use History: Marijuana - Past Family History Father Family Medical History: Unable to Obtain Mother Family Medical History: Diabetes Mellitus General Exam Limitations: no limitations General appearance: alert, in no apparent distress Head exam: Present: atraumatic, normocephalic, normal inspection Eye exam: Present: normal appearance, PERRL, EOMI. Absent: scleral icterus, conjunctival injection ENT exam: Present: normal exam, mucous membranes moist Neck exam: Present: normal inspection. Absent: tenderness, meningismus, lymphadenopathy Respiratory exam: Present: normal lung sounds bilaterally. Absent: respiratory distress, wheezes, rales, rhonchi, stridor Cardiovascular Exam: Present: regular rate, normal rhythm, normal heart sounds. Absent: systolic murmur, diastolic murmur, rubs, gallop, clicks Extremities exam: Present: full ROM (Full range of motion of the right knee ankle and foot.), normal capillary refill (Capillary refill is 2 seconds, DP pulses 2+ in the right lower extremity. ). Absent: tenderness (Tenderness to small fluctuant area about 1 cm x 1 cm on the dorsum of the right foot. Does not appear to be abscessed at this time. A possibly small bruise.), pedal edema, joint swelling, calf tenderness (No tenderness of the right calf. No erythema noted. No evidence of infection. Maybe some very slight edema.) Course Vital Signs 10/12/19 15:28 Temperature 98.2 F Pulse Rate 56 L Respiratory 16 Rate Blood Pressure 145/92 O2 Sat by Pulse 97 Oximetry Medical Decision Making - Medical Decision Making Vitals are stable. She does have some light ecchymosis of the right foot. Neurovascular status intact. He does have a small 1 cm x 1 cm area of fluctuance noted to the dorsum of the right foot. Pt denies any other bleeding bruising or petechiae. X-ray shows hallux valgus deformity with some degenerative changes of the first metatarsophalangeal joint. Ultrasound of the right lower extremity is negative for DVT. Over the palpable abnormality of the foot the area appears complex and is hypoechoic. Consider ganglion cyst. Additional workup recommended. I did attempt to I&D this is an 18-gauge needle. No. Material expelled. Patient will be discharged home to follow up with primary care. I did recommend monitoring and return here for any worsening symptoms. Disposition Clinical Impression: Mass of soft tissue of foot Disposition: HOME SELF-CARE Condition: Good Instructions (If sedation given, give patient instructions): Foot Contusion (ED) Additional Instructions: Please follow-up with your doctor in one to 2 days for a recheck. He may need additional evaluation of the bump on your foot. If bruising is worsening return to the emergency department. If you have any other worsening symptoms return to the emergency department. Is patient prescribed a controlled substance at d/c from ED?: No Referrals: Holger Pinto Jr, DO [Primary Care Provider] - 1-2 days Time of Disposition: 17:13
--- NOTE | 2019-10-12 16:25 | XR ---
EXAMINATION TYPE: XR foot complete RT DATE OF EXAM: 10/12/2019 COMPARISON: None HISTORY: Ecchymosis TECHNIQUE: Three-view right foot FINDINGS: Ganesh valgus deformity is present. Some joint space narrowing at the first metatarsophalange al joint space is present. Remaining joint spaces are preserved. Plantar calcaneal heel spur is prese nt. No acute fractures or dislocations are are evident. IMPRESSION: 1. Hallux valgus deformity with some degenerative change first metatarsophalangeal joint space.
--- NOTE | 2019-10-12 16:34 | US ---
EXAMINATION TYPE: US venous doppler duplex LE RT DATE OF EXAM: 10/12/2019 4:27 PM COMPARISON: NONE CLINICAL HISTORY: edema r/o blood clot. Right foot pain and palpable lump top of right foot. Patient has a history of staph infection right [place] x2 weeks ago SIDE PERFORMED: Right TECHNIQUE: The lower extremity deep venous system is examined utilizing real time linear array sonog bee with graded compression, doppler sonography and color-flow sonography. VESSELS IMAGED: External Iliac Vein (EIV) Common Femoral Vein Deep Femoral Vein Greater Saphenous Vein * Femoral Vein Popliteal Vein Small Saphenous Vein * Proximal Calf Veins (* superficial vessels) Right Leg: Negative for DVT At the patient's palpable lump, on the top of his right foot, there is a complex area visualized barbara uring 1.2 x 0.4 x 1.3 cm. Unable to compress this area IMPRESSION: 1. Right lower extremity ultrasound negative for deep venous thrombosis. 2. Over the palpable abnormality foot this area has a complex appearance on ultrasound and is hypoech oic. Consider a ganglion cyst within the differential. Additional workup is recommended.
[2019-10-12 17:55] VITALS: BP 116/71; RESP 18; TEMP 98.3
== END 2019-10-12 17:55 | disposition home or self-care (01) ==
LOC: EC 15:21
DX: M79.89 Other specified soft tissue disorders (principal); R22.41 Localized swelling, mass and lump, right lower limb; M20.11 Hallux valgus (acquired), right foot; E11.9 Type 2 diabetes mellitus without complications; Z79.84 Long term (current) use of oral hypoglycemic drugs; Z79.899 Other long term (current) drug therapy; Z79.82 Long term (current) use of aspirin; Z87.891 Personal history of nicotine dependence; Z86.718 Personal history of other venous thrombosis and embolism; Z85.46 Personal history of malignant neoplasm of prostate
CPT/HCPCS: 10060; 99284

== ENCOUNTER → 2019-10-17 | Outpatient (CLI) | payer MEDICARE ==
--- NOTE | 2019-10-17 13:51 | NM ---
EXAMINATION TYPE: NM bone 3 phase DATE OF EXAM: 10/17/2019 COMPARISON: Plain film right foot 10/12/2019 HISTORY: Right foot pain Triple phase bone scintigraphy was performed following the injection of 22.7 mCi Tc 99m MDP. Immedia te images and 5 hours post injection images acquired. FINDINGS: There is increased uptake at the mid feet bilaterally. Uptake also present within the right knee grea ter than left. Symmetric uptake noted on blood flow images. Blood pool images nearly symmetric. IMPRESSION: Findings likely correspond to mid foot osteoarthritis which correlates with plain film.
== END | disposition home or self-care (01) ==
LOC: RADNMMAIN 07:20
PROVIDERS: ATTEND Family Medicine
DX: M79.671 Pain in right foot (principal)
CPT/HCPCS: 78315; A9503

== ENCOUNTER → 2020-06-04 | Outpatient (CLI) | payer MEDICARE ==
--- NOTE | 2020-06-04 10:06 | CT ---
EXAMINATION TYPE: CT chest wo con DATE OF EXAM: 06/04/2020 COMPARISON: CTA chest June 29, 2014 HISTORY: Intercostal pain CT DLP: 874 mGycm. Automated Exposure Control for Dose Reduction was Utilized. TECHNIQUE: CT scan of the thorax is performed without IV contrast. FINDINGS: LUNGS: Mild underlying emphysematous change. No pleural effusion or pneumothorax seen bilaterally. No suspicious focal consolidation. No nodules or masses. MEDIASTINUM: Lack of IV contrast is noted to limit evaluation for mediastinal and especially hilar ad enopathy. There are no definitive greater than 1 cm hilar or mediastinal lymph nodes. No cardiomega ly or pericardial effusion is seen. Coronary artery calcification and/or stents. Correlate clinically . Four vessel origin from aortic arch which is normal variant. OTHER: Spine is straightened. Mild to moderate multilevel anterior and lateral spurring. Occasional d iverticula near the splenic flexure. IMPRESSION: Mild emphysematous change without acute process identified. No suspicious mass or adenopa thy noted.
--- NOTE | 2020-06-04 10:09 | FL ---
EXAMINATION TYPE: FL UGI air w esophagus DATE OF EXAM: 06/04/2020 COMPARISON: CT abdomen and pelvis June 06, 2019. Same day CT chest study HISTORY: GERD per order. Epigastric pain. TECHNIQUE: A double contrast UGI study is performed. Total of 45 seconds fluoroscopic time utilized during procedure. 45 spot images saved to PACS. FINDINGS: Film Projector Operator image of the abdomen shows no gross abnormality. The esophagus shows satisfactory motility and emptying into the stomach. No diverticulum. No intralum inal mass. No evidence of hiatal hernia or stricture noted. The stomach shows satisfactory distensibility and peristalsis. Mild to moderate gastric fold prominen ce in the fundus. No focal ulcer disease. No suspicious intraluminal mass. No significant gastroesop hageal reflux was seen during real time performance of this study. The duodenal bulb, sweep, and proximal small bowel loops are unremarkable. IMPRESSION: Mild to moderate fundal gastritis is felt present. No reflux. No focal ulcer disease note d.
== END | disposition home or self-care (01) ==
LOC: RADCTMAIN 08:26
PROVIDERS: ATTEND Family Medicine
DX: J43.9 Emphysema, unspecified (principal); K29.70 Gastritis, unspecified, without bleeding
CPT/HCPCS: 71250; 74246

== ENCOUNTER → 2020-06-21 | Outpatient (CLI) | payer MEDICARE ==
--- NOTE | 2020-06-22 00:21 | MR ---
EXAMINATION TYPE: MR thoracic spine wo con DATE OF EXAM: 06/21/2020 COMPARISON: None HISTORY: Mid back pain x 5-6 weeks Multiplanar multiecho imaging of the thoracic spine was performed without contrast. Thoracic vertebra have normal alignment. There is no compression fracture. There is multilevel thorac ic disc space narrowing. Thoracic spinal cord has normal signal pattern. There is no edema. There is small posterior disc bulging at multiple levels throughout the thoracic spine without significant spi nal stenosis. There is no paraspinal mass. The neuroforamina appear fairly normal. There is posterior spurring and disc herniation in the cervical spine at levels from C3 to C7. There is 6 mm spinal stenosis at C4-5 and C5-6. IMPRESSION: Multilevel thoracic degenerative disc changes without significant spinal stenosis. No fracture. Spondylotic changes in formation and posterior small disc herniations in the cervical spine with spin al stenosis that has progressed compared to 03/15/2015 MR scan.
== END | disposition home or self-care (01) ==
LOC: RADMRIMAIN 07:05
PROVIDERS: ATTEND Family Medicine
DX: M47.814 Spondylosis without myelopathy or radiculopathy, thoracic region (principal)
CPT/HCPCS: 72146

== ENCOUNTER → 2020-07-05 | Outpatient (CLI) | payer MEDICARE | LOC: LABWHC1 14:35 | PROVIDERS: ATTEND Urology | DX: C61 Malignant neoplasm of prostate (principal) | CPT/HCPCS: 36415; 84153 ==

== ENCOUNTER → 2021-06-30 | Outpatient (CLI) | payer MEDICARE | END | disposition home or self-care (01) | LOC: LABWHC1 12:26 | PROVIDERS: ATTEND Urology | DX: C61 Malignant neoplasm of prostate (principal) | CPT/HCPCS: 36415; 84153 ==

== ENCOUNTER → 2021-10-17 | Outpatient (CLI) | payer MEDICARE ==
--- NOTE | 2021-10-17 08:56 | CTL ---
EXAMINATION TYPE: CT Low Dose Lung DATE OF EXAM ORDERED: 10/17/2021 HISTORY: Tobacco use. Lung cancer screening CT DLP: 150.[address] CTDI: 4.1 mGy Automated exposure control for dose reduction was used. SCREENING VISIT: Baseline COMPARISON: CT dated 06/04/2020 TECHNIQUE: Low dose computed tomography scan was performed through the chest at 1 mm thick sections a nd reconstructed images in multiple planes at 1 mm and [address] DIAGNOSTIC QUALITY: Satisfactory FINDINGS: LUNG NODULES: None. LUNGS: COPD: Severity: Mild Fibrosis: Severity: Mild Lymph nodes: No pathologically enlarged lymph nodes Other findings: Well defined nodule is seen at the anterior aspect of the most superior portion of th e trachea just inferior to the larynx measuring up to 7 mm, for correlation with laryngoscopy results . Bilateral basal peripheral pulmonary reticulations and mild fibrotic changes. RIGHT PLEURAL SPACE: Effusion: None Calcification: None Thickening: None Pneumothorax: None LEFT PLEURAL SPACE: Effusion: None Calcification: None Thickening: None Pneumothorax: None HEART: Heart Size: Normal Coronary Calcification: Moderate to marked Pericardial Effusion: None OTHER FINDINGS: Upper abdomen: None Bony thorax: Degenerative changes of the thoracic spine and left sternoclavicular joint. Supraclavicular region: None Other: The pulmonary trunk measures 3.2 cm which may suggest pulmonary hypertension. IMPRESSION: 7 mm nodule at the most superior aspect of the trachea just inferior to the larynx as gris cribed above, for correlation with laryngoscopy/endoscopy results. No other definite lung lesion or n odule. Other findings as described above. CT LUNG RAD AND CT CHEST RECOMMENDATION: Lung-Rad 3 Probably Benign: 6 month follow-up LDCT. Endoscop y/endoscopy is recommended for the described nodule. S Modifier (other clinically significant findings): As above.
== END | disposition home or self-care (01) ==
LOC: RADCTMAIN 06:45
PROVIDERS: ATTEND Internal Medicine
DX: Z12.2 Encounter for screening for malignant neoplasm of respiratory organs (principal); Z87.891 Personal history of nicotine dependence
CPT/HCPCS: 71271

== ENCOUNTER → 2021-12-14 | Day surgery (SDC) | payer MEDICARE ==
[2021-12-12 12:00] VITALS: BMI 33.2
[~2021-12-14] MED LIST changes: +DEXAMETHASONE SOD PHOSPHATE 10 MG/ML 1 ML VIAL ONE; +DEXAMETHASONE SOD PHOSPHATE 4 MG/ML 1 ML VIAL IV ONE; +DEXAMETHASONE SOD PHOSPHATE 4 MG/ML 1 ML VIAL IV PRN; +FAMOTIDINE 20 MG/2 ML VIAL IV PRN; +HYDROmorphone 0.5 MG/0.5 ML SYRINGE IVP PRN; +LACTATED RINGERS 1,000 ML IV SCH; +LIDOCAINE 1% (10MG/ML) FOR IV START INTRADERMA ONE; +LIDOCAINE 2% INJ 20 MG/ML (2 ML VIAL) ONE; +MIDAZOLAM 2 MG/2 ML VIAL ONE; +ONDANSETRON 4 MG/2 ML VIAL IVP ONE; +ONDANSETRON 4 MG/2 ML VIAL IVP PRN; +PHENYLEPHRINE-0.9% NACL SYG 1,000 MCG/10 ML SYRINGE ONE; +PROPOFOL 10 MG/ML 20 ML VIAL IV ONE; -REGADENOSON 0.4 MG/5 ML SYRINGE IV ONE; +SUCCINYLCHOLINE CHLORIDE 200 MG/10 ML VIAL IV ONE; +fentaNYL (PF) 50 MCG/ML 2 ML AMP ONE
[2021-12-14 07:42] VITALS: RESP 16
[2021-12-14 07:58] LABS: Glucose,Whole Blood 157 mg/dL (70-110)
--- NOTE | 2021-12-14 08:55 | P.OP ---
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 This was not visualized in the office with flexible laryngoscopy Operative Findings: Nodular approximate 8 mm left anterior true vocal cord lesion which was 3 mm posterior to anterior commissure. This appeared well demarcated and was excised grossly entirely under microscopy, minute approximate 2 mm area of leukoplakia on the right anterior vocal cords across from the left-sided vocal cord lesion approximately 4 mm posterior to anterior commissure which was superficial appearing leukoplakia and removed grossly entirely Description of Procedure: The patient was brought in the operative suite and placed in a supine position. Patient underwent induction of general anesthesia with oral endotracheal intubation without difficulty. The endotracheal tube was a #5. The patient was prepped and draped in the usual aseptic fashion and tooth guard was placed. Direct laryngoscopy was performed with systematic evaluation of the base of to ngue vallecula both piriform sinuses post cricoid area and endolarynx. With the larynx in good visualization the laryngoscope was placed in suspension and Zeiss microscope was brought into position to evaluate the vocal cords. The left true vocal cord lesion was well visualized and was grasped with an up-biting cup forceps. This was then excised from the underlying tissue down to the lamina propria mostly entirely with microscissors technique. The base of this area was then debrided with the hand coper blade but again leaving the lamina propria intact. There was a small area of leukoplakia on the opposite vocal cord on the right which was excised with cup forceps and microscissors technique again superficial to the lamina propria. Hemostasis was gained with local pressure and was good. The laryngoscope and tooth guard were removed. The patient was allowed to emerge from general anesthesia having tolerated procedure well was extubated in the operating suite and transferred to the postop recovery area in satisfactory condition.
[2021-12-14 09:10] VITALS: TEMP 96.9
[2021-12-14 10:14] VITALS: BP 141/82; PULSE 65
== END | disposition home or self-care (01) ==
LOC: OR 07:03
PROVIDERS: ATTEND Otolaryngology
DX: J38.1 Polyp of vocal cord and larynx (principal); E11.9 Type 2 diabetes mellitus without complications; H53.9 Unspecified visual disturbance; Z85.46 Personal history of malignant neoplasm of prostate; Z79.1 Long term (current) use of non-steroidal anti-inflammatories (NSAID); Z83.3 Family history of diabetes mellitus; F17.210 Nicotine dependence, cigarettes, uncomplicated; Z98.890 Other specified postprocedural states
CPT/HCPCS: 31536; 88305; J2250; J0330; J1100 ×2; J2405; J3010; J2370; J2704; J2001

== ENCOUNTER 2022-03-28 08:01 | Day surgery (SDC) | payer MEDICARE ==
[2022-03-27 08:26] VITALS: BMI 34.8
[~2022-03-28 08:01] MED LIST changes: -DEXAMETHASONE SOD PHOSPHATE 10 MG/ML 1 ML VIAL ONE; -DEXAMETHASONE SOD PHOSPHATE 4 MG/ML 1 ML VIAL IV ONE; -DEXAMETHASONE SOD PHOSPHATE 4 MG/ML 1 ML VIAL IV PRN; -FAMOTIDINE 20 MG/2 ML VIAL IV PRN; -HYDROmorphone 0.5 MG/0.5 ML SYRINGE IVP PRN; -LIDOCAINE 1% (10MG/ML) FOR IV START INTRADERMA ONE; +LIDOCAINE 1% (10MG/ML) FOR IV START INTRADERMA PRN; -LIDOCAINE 2% INJ 20 MG/ML (2 ML VIAL) ONE; -MIDAZOLAM 2 MG/2 ML VIAL ONE; -ONDANSETRON 4 MG/2 ML VIAL IVP ONE; -ONDANSETRON 4 MG/2 ML VIAL IVP PRN; -PHENYLEPHRINE-0.9% NACL SYG 1,000 MCG/10 ML SYRINGE ONE; -PROPOFOL 10 MG/ML 20 ML VIAL IV ONE; -SUCCINYLCHOLINE CHLORIDE 200 MG/10 ML VIAL IV ONE; -fentaNYL (PF) 50 MCG/ML 2 ML AMP ONE
[2022-03-28 08:22] VITALS: RESP 18; TEMP 97.7
[2022-03-28 08:33] LABS: Glucose,Whole Blood 160 mg/dL (70-110)
[2022-03-28] MEDS ORDERED: LIDOCAINE 2% INJ 20 MG/ML (2 ML VIAL) ONE (08:37)
[2022-03-28] MEDS ORDERED: PROPOFOL 10 MG/ML 20 ML VIAL IV ONE (08:37)
--- NOTE | 2022-03-28 08:58 | P.PCN ---
Date of Procedure: 03/28/22 Procedure(s) Performed: BRIEF HISTORY: Patient is a 62-year-old pleasant white male scheduled for an elective colonoscopy as a part of evaluation of prior history of colon polyps. His last colonoscopy was 5 years ago. PROCEDURE PERFORMED: Colonoscopy with snare polypectomy. PREOPERATIVE DIAGNOSIS: History of colon polyps. IV sedation per Anesthesia. PROCEDURE: After informed consent was obtained, the patient, was brought into the endoscopy unit. IV sedation was administered by Anesthesia under continuous monitoring. Digital rectal examination was normal. Initially the Olympus CF-160 flexible video colonoscope was then inserted in the rectum, gradually advanced into the cecum without any difficulty. Careful examination was performed as the scope was gradually being withdrawn. Ileocecal valve and the appendiceal orifice were visualized and appeared normal. Prep was fair.. Mucosa of the cecum and 1 cm polyp noted on the ileocecal valve that was removed by snare polypectomy. In the transverse colon there was a 1.5 cm broad-based polyp removed by snare polypectomy. Rest of the, ascending colon, transverse colon, descending colon, sigmoid colon, and rectum appeared normal. Scattered sigmoid diverticulosis seen. Retroflexion was performed in the rectum and no lesions were seen. The patient tolerated the procedure well. IMPRESSION: 1 cm polyp on the ileocecal valve status post polypectomy 1.5 cm transverse colon polyp status post polypectomy Scattered sigmoid diverticulosis RECOMMENDATIONS: Findings of this examination were discussed with the patient as his family. He was advised to follow with the biopsy results. If the biopsy reveals adenoma he can have a repeat colonoscopy in 3 years..
[2022-03-28 09:05] VITALS: BP 103/67; PULSE 59
== END 2022-03-28 09:34 | disposition home or self-care (01) ==
LOC: ORWHC2ENDO 08:01
PROVIDERS: ATTEND Internal Medicine Gastroenterology
DX: Z12.11 Encounter for screening for malignant neoplasm of colon (principal); K63.5 Polyp of colon; K57.30 Diverticulosis of large intestine without perforation or abscess without bleeding; E11.9 Type 2 diabetes mellitus without complications; N20.0 Calculus of kidney; M19.90 Unspecified osteoarthritis, unspecified site; Z86.711 Personal history of pulmonary embolism; Z86.718 Personal history of other venous thrombosis and embolism; Z86.010 Personal history of colon polyps; Z85.46 Personal history of malignant neoplasm of prostate; Z79.84 Long term (current) use of oral hypoglycemic drugs; Z79.899 Other long term (current) drug therapy
CPT/HCPCS: 88305; 45385; J2704; J2001

== ENCOUNTER → 2023-05-18 | Outpatient (CLI) | payer MEDICARE ==
[2023-05-18 15:11] LABS: African American GFR (CKD) >90 (>60 ml/min/1.73 sqM); Blood Urea Nitrogen 20 mg/dL (9-20); Non-African American GFR(CKD) >90 (>60 ml/min/1.73 sqM)
--- NOTE | 2023-05-18 19:24 | CT ---
EXAMINATION TYPE: CT abdomen pelvis w con DATE OF EXAM: 05/18/2023 COMPARISON: 06/06/2019 INDICATION: Unspecified abdominal pain x7days. DLP: 1998 mGycm, Automated exposure control for dose reduction was used. CONTRAST: 100ml mL of Isovue 300. Study performed with Oral Contrast TECHNIQUE: Axial images were obtained from above the diaphragm to the pubic rami in the axial plane a t 5 mm thick sections. Reconstructed images are reviewed on the computer in the coronal plane. FINDINGS: Limited CT sections are obtained the lung bases. The lung bases are clear. CT ABDOMEN: Liver: There is mild fatty infiltration liver. Spleen: Normal Pancreas: Normal Adrenal glands: The adrenal glands are normal. Gallbladder: Normal Kidneys: No masses are evident. No hydronephrosis is present. No cysts are present. Delayed images were obtained through the kidneys, which remain unremarkable. Aorta: Minimal vascular calcifications Inferior vena cava: Normal. CT PELVIS: Loops of bowel within the abdomen and pelvis are normal. Diverticuli within the sigmoid colon. No adj acent inflammatory changes to suggest acute diverticulitis. There are loops of bowel which are inc ompletely distended or lack oral contrast limiting their evaluation. Appendix: Not identified. No dilated tubular structure or inflammatory change is evident. Urinary bladder: Normal. Genitourinary structures: Prostate is poorly visualized Osseous structures: No suspicious lytic or sclerotic lesions. IMPRESSION: 1. Diverticulosis without acute diverticulitis. 2. Mild fatty infiltration liver
== END | disposition home or self-care (01) ==
LOC: RADCTMAIN 14:31
PROVIDERS: ATTEND Family Medicine
DX: K76.0 Fatty (change of) liver, not elsewhere classified (principal); K57.30 Diverticulosis of large intestine without perforation or abscess without bleeding
CPT/HCPCS: 82565; 84520; 74177; 36415; Q9967

== ENCOUNTER → 2023-05-21 | Outpatient (CLI) | payer MEDICARE ==
[2023-05-22 07:48] LABS: Cryptosporidium Antigen Negative (Negative)
== END | disposition home or self-care (01) ==
LOC: LABPAT 11:01 → LABWHC1 11:01 → EDSTATUS 11:06
PROVIDERS: ATTEND Physician Assistant
DX: R10.9 Unspecified abdominal pain (principal); R19.7 Diarrhea, unspecified
CPT/HCPCS: 87045; 87046; 87328; 87329

== ENCOUNTER → 2023-06-25 | Outpatient (CLI) | payer MEDICARE | END | disposition home or self-care (01) | LOC: LABWHC1 09:47 | PROVIDERS: ATTEND Urology | DX: C61 Malignant neoplasm of prostate (principal) | CPT/HCPCS: 36415; 84153 ==

== ENCOUNTER 2023-08-04 13:29 | Inpatient (IN) | payer MEDICARE ==
--- NOTE | 2023-08-04 14:02 | ED ---
Fall HPI - General Chief Complaint: Fall Stated Complaint: Fall, down [5] stairs Time Seen by Provider: 08/04/23 13:35 Source: patient, RN notes reviewed Mode of arrival: ambulatory Limitations: no limitations - History of Present Illness Initial Comments: This is a 63-year-old male who presents to the emergency department for a fall. States that yesterday he was going down the stairs when he started to feel dizzy and his legs gave out on him. He subsequently fell down about 5 steps. He hit his head and injured his right shoulder. Denies any loss of consciousness. Not taking any blood thinners. He has continued to have a severe headache since the fall as well as some episodes of blurred vision. Also has mild pain in both knees. States that he has had dizzy episodes before, but always attributes this to his pain medication. This occurred about an hour after taking his pain medication. He has not had these dizzy episodes evaluated in the past. Denies any chest pain or shortness of breath associated with them. MD Complaint: fall - Related Data Home Medications Medication Instructions Recorded Confirmed Ibuprofen [Motrin] 800 mg PO BID PRN 03/27/22 08/04/23 Dulaglutide [Trulicity] 0.75 mg SQ SA 08/04/23 08/04/23 oxyCODONE-APAP 5-325MG [Percocet 1 tab PO TID 08/04/23 08/04/23 5-325 mg] Allergies Allergy/AdvReac Type Severity Reaction Status Date / Time No Known Allergies Allergy Verified 08/04/23 15:57 Review of Systems ROS Statement: Those systems with pertinent positive or pertinent negative responses have been documented in the HPI. ROS Other: All systems not noted in ROS Statement are negative. 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 of kidney stones, History of Any Multi-Drug Resistant Organisms: None Reported Past Surgical History: Appendectomy, Hernia Repair, Orthopedic Surgery, Prostate Surgery Additional Past Surgical History / Comment(s): 2015-robotic prostatectomy, ARTHROSCOPIC RIGHT KNEE, LEFT WRIST,LT ELBOW AND LEFT SHOULDER SURG., surgery to removed nodules from throat Past Anesthesia/Blood Transfusion Reactions: No Reported Reaction Past Psychological History: No Psychological Hx Reported Smoking Status: Current some day smoker, Former smoker Past Alcohol Use History: Occasional Past Drug Use History: Marijuana - Past Family History Mother Family Medical History: No Reported History General Exam Limitations: no limitations General appearance: alert, in no apparent distress Head exam: Present: atraumatic, normocephalic, normal inspection Eye exam: Present: normal appearance, PERRL, EOMI. Absent: scleral icterus, conjunctival injection, periorbital swelling Respiratory exam: Present: normal lung sounds bilaterally. Absent: respiratory distress, wheezes, rales, rhonchi, stridor Cardiovascular Exam: Present: regular rate, normal rhythm, normal heart sounds. Absent: systolic murmur, diastolic murmur, rubs, gallop, clicks Extremities exam: Present: other (Tenderness to palpation over the right shoulder. Range of motion limited by pain. No deformities. 2+ radial pulses.) Neurological exam: Present: alert, oriented X3, CN II-XII intact Expanded Cerebellar function: Finger to Nose: Normal, Heel to Chavira: Normal, Romberg: Normal Motor strength exam: RUE: 5, LUE: 5, RLE: 5, LLE: 5 Psychiatric exam: Present: normal affect, normal mood Skin exam: Present: warm, dry, intact, normal color. Absent: rash Course Vital Signs 08/04/23 08/04/23 08/04/23 13:31 14:36 16:16 Temperature 98.4 F Pulse Rate 92 74 59 L Respiratory 22 18 18 Rate Blood Pressure 139/104 114/88 110/85 O2 Sat by Pulse 96 94 L 96 Oximetry Medical Decision Making - Medical Decision Making This is a 63-year-old male who presents to the emergency department for a headache and right shoulder pain after a fall. Was pt. sent in by a medical professional or institution? @ -No Did you speak to anyone other than the patient for history? @ -No Did you review nursing and triage notes? @ -Yes, and I agree, it is accurate with regards to the patient's symptoms. Were old charts reviewed? @ -No Differential Diagnosis? @ -Differential Headache: Migraine, tension, cluster, carbon monoxide, central venous thrombosis, pension karma temporal arteritis, acute closure glaucoma, intercranial hemorrhage, mastoiditis, sinusitis, head injury, this is not meant to be an all-inclusive list. EKG interpreted by me (3pts min.)? @ -EKG interpreted by me demonstrating the following: Sinus rhythm. Ventricular rate 78 bpm, VT interval 168 ms, QRS duration 106 ms, QTc 385 ms. X-rays interpreted by me (1pt min.)? @ -X-ray of the bilateral knees obtained. My interpretation identifies no acute fractures. X-ray of the chest obtained. My interpretation identifies no acute rib fractures. X-ray of the right shoulder obtained. My interpretation iden tifies no acute fractures. CT interpreted by me (1pt min.)? @ -CT scan of the brain and C-spine obtained. My interpretation identifies no skull fractures. U/S interpreted by me (1pt. min.)? @ -Not obtained What testing was considered but not performed? (CT, X-rays, U/S, labs)? Why? @ -None What meds were considered but not given? Why? @ -None Did you discuss the management of the patient with other professionals? @ -Yes, Dr. Bolden, neurology, who reviewed the CT scan and could not definitively say whether or not this was a bleed. Case discussed with Dr. Rodriguez, neurointensivist, who reviewed the CT scan and was not impressed by the read. However given the radiology read, he advised that the patient will need an MRI. Case discussed again with Dr. Bolden, who is agreeable to admission at our facility for an MRI in the next couple of days. [facility] accepts the patient for admission to medicine. Did you reconcile home meds? @ -Yes Was smoking cessation discussed for >3mins.? @ -No Was critical care preformed (if so, how long)? @ -No Were there social determinants of health that impacted care today? How? (Homelessness, low income, unemployed, alcoholism, drug addiction, transportation, low edu. Level, literacy, decrease access to med. care, halfway, rehab)? @ -No Was there de-escalation of care discussed even if they declined? (Discuss DNR or withdrawal of care, Hospice)? @ -No What co-morbidities impacted this encounter? (DM, HTN, Smoking, COPD, CAD, Cancer, CVA, Hep., AIDS, mental health diagnosis, sleep apnea, morbid obesity)? @ -DM Was patient admitted / discharged? @ -Admitted. Given that the patient was exhibiting dizziness prior to the fall, we did proceed with further workup, including an EKG, blood work, and chest x- ray. EKG had no ST changes. Lab work was unremarkable. X-ray of the right shoulder, bilateral knees, and chest obtained. Chest x-ray demonstrates cardiomegaly and mild pulmonary vascular congestion. Patient has no history of CHF. X-ray of the bilateral knees demonstrates severe osteoarthritis with small suprapatellar joint effusions bilaterally. X-ray of the right shoulder demonstrates degenerative changes without acute process. CT scan of the brain and C-spine obtained demonstrating a slightly bulbous appearance along the superior sagittal sinus that is favored to represent an anatomical variation, however a small subdural hematoma cannot be excluded. Case discussed with Dr. Bolden, neurology. He reviewed the scans himself, and was unable to definitively say whether or not this was a bleed. I spoke with Dr. Rodriguez, who reviewed the images himself and was not impressed with any of the images and did not think that any intervention or immediate treatment was needed. He did however advise that based on the CT read by radiology, he will need an MRI, but not emergently. Discussed this conversation with Dr. Bolden, neurology, who is agreeable to admission at this facility for an MRI in the next couple of days. Patient admitted to medicine for further management of head injury and abnormal brain CT. With regards to the pulmonary vascular congestion on chest x-ray, BNP was ordered with results pending at the time of admission. Undiagnosed new problem with uncertain prognosis? @ -None Drug Therapy requiring intensive monitoring for toxicity (Heparin, Nitro, Insulin, Cardizem)? @ -None Were any procedures done? @ -None Diagnosis/symptom? @ -Fall, head injury, abnormal brain CT Acute, or Chronic, or Acute on Chronic? @ -Acute Uncomplicated (without systemic symptoms) or Complicated (systemic symptoms)? @ -Uncomplicated Side effects of treatment? @ -None Exacerbation, Progression, or Severe Exacerbation] @ -Not applicable Poses a threat to life or bodily function? @ -This will ultimately depend on the final CT scan reading. This case was discussed in detail with the attending ED physician, Dr. Young. Presentation, findings, and treatment plan discussed in detail as well. - Lab Data Result diagrams: 03/30/24 14:29 08/04/23 14:29 Lab Results 08/04/23 08/04/23 08/04/23 Range/Units 14:29 14:29 14:29 WBC 8.6 (3.8-10.6) k/uL RBC 4.84 (4.30-5.90) m/uL Hgb 15.5 (13.0-17.5) gm/dL Hct 45.9 (39.0-53.0) % MCV 95.0 (80.0-100.0) fL MCH 32.0 (25.0-35.0) pg MCHC 33.7 (31.0-37.0) g/dL RDW 12.6 (11.5-15.5) % Plt Count 274 (150-450) k/uL MPV 6.9 Neutrophils % 70 % Lymphocytes % 21 % Monocytes % 5 % Eosinophils % 2 % Basophils % 1 % Neutrophils # 6.0 (1.3-7.7) k/uL Lymphocytes # 1.9 (1.0-4.8) k/uL Monocytes # 0.5 (0-1.0) k/uL Eosinophils # 0.2 (0-0.7) k/uL Basophils # 0.1 (0-0.2) k/uL PT 11.1 (10.0-12.5) sec INR 1.0 (<1.2) APTT 26.3 (22.0-30.0) sec Sodium 136 L (137-145) mmol/L Potassium 4.3 (3.5-5.1) mmol/L Chloride 106 (98-107) mmol/L Carbon Dioxide 21 L (22-30) mmol/L Anion Gap 9 mmol/L BUN 16 (9-20) mg/dL Creatinine 0.71 (0.66-1.25) mg/dL Est GFR (CKD-EPI)AfAm >90 (>60 ml/min/1.73 sqM) Est GFR (CKD-EPI)NonAf >90 (>60 ml/min/1.73 sqM) Glucose 174 H (74-99) mg/dL Calcium 9.7 (8.4-10.2) mg/dL Magnesium 2.0 (1.6-2.3) mg/dL Total Bilirubin 0.6 (0.2-1.3) mg/dL AST 27 (17-59) U/L ALT 35 (4-49) U/L Alkaline Phosphatase 79 (38-126) U/L Troponin I (0.000-0.034) ng/mL Total Protein 7.4 (6.3-8.2) g/dL Albumin 4.4 (3.5-5.0) g/dL 08/04/23 Range/Units 14:29 WBC (3.8-10.6) k/uL RBC (4.30-5.90) m/uL Hgb (13.0-17.5) gm/dL Hct (39.0-53.0) % MCV (80.0-100.0) fL MCH (25.0-35.0) pg MCHC (31.0-37.0) g/dL RDW (11.5-15.5) % Plt Count (150-450) k/uL MPV Neutrophils % % Lymphocytes % % Monocytes % % Eosinophils % % Basophils % % Neutrophils # (1.3-7.7) k/uL Lymphocytes # (1.0-4.8) k/uL Monocytes # (0-1.0) k/uL Eosinophils # (0-0.7) k/uL Basophils # (0-0.2) k/uL PT (10.0-12.5) sec INR (<1.2) APTT (22.0-30.0) sec Sodium (137-145) mmol/L Potassium (3.5-5.1) mmol/L Chloride (98-107) mmol/L Carbon Dioxide (22-30) mmol/L Anion Gap mmol/L BUN (9-20) mg/dL Creatinine (0.66-1.25) mg/dL Est GFR (CKD-EPI)AfAm (>60 ml/min/1.73 sqM) Est GFR (CKD-EPI)NonAf (>60 ml/min/1.73 sqM) Glucose (74-99) mg/dL Calcium (8.4-10.2) mg/dL Magnesium (1.6-2.3) mg/dL Total Bilirubin (0.2-1.3) mg/dL AST (17-59) U/L ALT (4-49) U/L Alkaline Phosphatase (38-126) U/L Troponin I <0.012 (0.000-0.034) ng/mL Total Protein (6.3-8.2) g/dL Albumin (3.5-5.0) g/dL - Radiology Data Radiology results: report reviewed, image reviewed Disposition Clinical Impression: Fall, Head injury, Abnormal brain CT Disposition: ADMITTED IP TO THIS [facility] Referrals: Christopher Guerra MD [Primary Care Provider] - 1-2 days Time of Disposition: 18:00
[2023-08-04] MEDS: SODIUM CHLORIDE 0.9% 1,000 ML IV STA (14:28)
[2023-08-04] MEDS: KETOROLAC 15 MG/ML 1 ML VIAL IVP STA (14:28)
[2023-08-04] MEDS: MORPHINE SULFATE 4 MG/ML SYRINGE IVP STA (14:29)
[2023-08-04 14:40] LABS: Basophils # (A) 0.1 k/uL (0-0.2); Basophils % (A) 1 %; Eosinophils # (A) 0.2 k/uL (0-0.7); Eosinophils % (A) 2 %; HCT 45.9 % (39.0-53.0); HGB 15.5 gm/dL (13.0-17.5); Lymphocytes # (A) 1.9 k/uL (1.0-4.8); Lymphocytes % (A) 21 %; MCHC 33.7 g/dL (31.0-37.0); Mean Platelet Volume 6.9; Monocytes # (A) 0.5 k/uL (0-1.0); Monocytes % (A) 5 %; Neutrophils % (A) 70 %; Platelet Count 274 k/uL (150-450); RBC 4.84 m/uL (4.30-5.90); RDW 12.6 % (11.5-15.5); WBC 8.6 k/uL (3.8-10.6)
[2023-08-04 14:55] LABS: Partial Thromboplastin Time 26.3 sec (22.0-30.0); Prothrombin Time 11.1 sec (10.0-12.5)
--- NOTE | 2023-08-04 14:58 | CT ---
EXAMINATION TYPE: CT brain cspine wo con CT DLP: 1438.8 mGycm, Automated exposure control for dose reduction was used. DATE OF EXAM: 08/04/2023 2:13 PM COMPARISON: None. CLINICAL INDICATION:Male, 63 years old with history of Fall, head injury; fall TECHNIQUE: Brain: Multiple axial CT images of the brain were obtained without IV contrast. Cspine: Axial CT images from the skull base to the inferior aspect of T2 we obtained without intraven ous contrast. Coronal and sagittal reformatted images were also reviewed. FINDINGS: Brain: Extra-axial spaces: No abnormal extra-axial fluid collections. Ventricular system: Appear dilated in proportion to the degree of cerebral atrophy. Cerebral parenchyma: No increased attenuation to suggest acute intraparenchymal hemorrhage. The gra y-white matter interface appears maintained. Mild generalized brain atrophy. White matter unremarka ble by CT. Cerebellum: No acute abnormality. Mass effect: No evidence of mass effect or midline shift. Intracranial vasculature: Mild calcifications of the ICAs at the skull base. Dural venous sinuses tari ear of normal morphology and attenuation. There is a slightly bulbous appearance of the superior sagi ttal sinus along the posterior falx, favored to represent anatomical variation but very small subdura l hematoma in this location cannot be excluded. Soft tissues: No acute abnormality. Dermal calcifications across the scalp. Visualized orbits: Orbital contents appear grossly intact. Calvarium/osseous structures: No evidence of calvarial fracture. Paranasal sinuses and mastoid air cells: Clear. MRI is more sensitive for detecting acute processes such as infarct, and may be considered if clinica lly warranted. Cervical spine: Fracture: None seen. Osseous structures, spinal canal/neural foramina: Craniocervical junction appears intact. Mild degene rative changes of the atlantooccipital joints. Mild to moderate degenerative changes the anterior C1- C2 articulation. Moderate multilevel degenerative disc disease and facet arthrosis, with narrowing of the disc spaces and moderate sized disc marginal osteophytes at multiple levels. There appears to be intercalary bone anteriorly at several levels which appear well-corticated. At C2-C3 canal and foramina appear patent. At C3-C4 moderate canal and bilateral neural foraminal paige noses. At C4-C5 moderate canal and neural foraminal stenoses. At C5-C6 moderate canal and neural fora yuki stenoses. At C6-C7 moderate canal and neural foraminal stenoses. At C7-T1 moderate canal and ne ural foraminal stenoses. At T1-T2 moderate canal stenosis, moderate to severe foraminal stenoses, lef t slightly greater than right. Vertebral alignment: No traumatic malalignment. Mild reversal of the normal cervical lordosis which i s likely degenerative but pain or spasm can contribute. Neck soft tissues: No acute abnormality. Calcifications seen in the bilateral carotid arteries near t he bifurcations.. Other: Included lung apices show emphysematous changes and presumed scarring. No acute infiltrate or pneumothorax is shown. IMPRESSION: CT head: 1. No definite evidence of acute intracranial hemorrhage, midline shift, or mass effect. 2. Slightly bulbous appearance along the superior sagittal sinus is favored to represent anatomical v ariation but very small subdural hematoma in this location cannot be excluded. Follow-up as clinically warranted. CT cervical spine: 1. No evidence of acute cervical spine fracture or traumatic malalignment. 2. Moderate cervical spondylosis.
[2023-08-04 15:30] LABS: ALT 35 U/L (4-49); AST 27 U/L (17-59); African American GFR (CKD) >90 (>60 ml/min/1.73 sqM); Albumin 4.4 g/dL (3.5-5.0); Alkaline Phosphatase 79 U/L (38-126); Anion Gap 9 mmol/L; Blood Urea Nitrogen 16 mg/dL (9-20); Calcium 9.7 mg/dL (8.4-10.2); Carbon Dioxide 21 mmol/L (22-30); Chloride 106 mmol/L (98-107); Glucose 174 mg/dL (74-99); Non-African American GFR(CKD) >90 (>60 ml/min/1.73 sqM); Potassium 4.3 mmol/L (3.5-5.1); Sodium 136 mmol/L (137-145); Total Bilirubin 0.6 mg/dL (0.2-1.3); Total Protein 7.4 g/dL (6.3-8.2)
--- NOTE | 2023-08-04 15:40 | XR ---
EXAMINATION TYPE: XR knee complete bilateral DATE OF EXAM: 08/04/2023 2:17 PM CLINICAL INDICATION:Male, 63 years old with history of Fall; [facility] COMPARISON: None. TECHNIQUE: XR knee complete bilateral; examined in Frontal, lateral and oblique projections. FINDINGS: Right knee: There is moderate to severe tricompartmental osteoarthropathy with joint space narrowing and marginal osteophytosis. This appears most progressed in the lateral compartment. There is mild to moderate me dial subluxation of the distal articular surface of the femur on the tibia. No acute fracture or disl ocation is shown. Suspect small suprapatellar joint effusion. There are scattered arterial vascular c alcifications. Left knee: There is moderate tricompartmental osteoarthropathy. Distal articular surface of the femur appears mi ldly medially subluxed in relation to the proximal articular surface of the tibia. No acute fracture or dislocation is shown. Suspect small suprapatellar joint effusion. There are scattered arterial vascular calcifications. IMPRESSION: 1. No acute fracture or dislocation identified in either knee. 2. Moderate to severe tricompartmental osteoarthropathy on the right, moderate on the left. 3. Suspect small suprapatellar joint effusions bilaterally.
--- NOTE | 2023-08-04 15:59 | XR ---
EXAMINATION TYPE: XR shoulder complete RT DATE OF EXAM: 08/04/2023 2:17 PM CLINICAL INDICATION:Male, 63 years old with history of Fall; [facility] COMPARISON: TECHNIQUE: XR shoulder complete RT; shoulder was examined in AP, internally rotated and scapular Y p rojections. FINDINGS: No evidence of acute osseous pathology, joint dislocation, or soft tissue swelling. Moderate degenera tive changes of the glenohumeral and AC joints. IMPRESSION: 1. No acute osseous pathology. 2. Moderate degenerative changes.
--- NOTE | 2023-08-04 16:01 | XR ---
EXAMINATION TYPE: XR chest 2V DATE OF EXAM: 08/04/2023 2:17 PM CLINICAL INDICATION:Male, 63 years old with history of syncope; [facility] COMPARISON: None TECHNIQUE: XR chest 2V. Frontal and lateral views of the chest.. FINDINGS: Exam is limited by patient body habitus. Lines/Tubes/Devices: EKG leads overlie the chest. No indwelling lines are seen. Heart/mediastinum: Heart appears mildly to moderately enlarged. Mediastinum appears within normal dumont its. Pulmonary vascularity: Pulmonary vascular congestion. Lungs/Pleura: No significant sized pleural effusion is seen. No pneumothorax. No focal infiltrate or consolidation. Musculoskeletal: No acute osseous abnormality demonstrated in the limits of the exam. Degenerative c hanges of the spine and shoulders. Other findings: None. IMPRESSION: Cardiomegaly and mild pulmonary vascular congestion. Correlate clinically for congestive heart failur e.
[2023-08-04] MEDS: HYDROmorphone 1 MG/ML 1 ML SYRINGE IVP STA (16:27)
[2023-08-04] MEDS: ORPHENADRINE 30 MG/ML 2 ML VIAL IVP STA (16:27)
[2023-08-04] MEDS ORDERED: NALOXONE 0.4 MG/ML 1 ML VIAL IV PRN (18:12)
[2023-08-04] MEDS ORDERED: ACETAMINOPHEN TAB 325 MG TAB PO PRN (18:12)
[2023-08-04] MEDS: NON FORMULARY DRUG (Dulaglutide [Trulicity] 0.75 MG/0.5 ML Each) SQ SCH (18:31)
[2023-08-04] MEDS: oxyCODONE-APAP 5-325MG 1 EACH TAB PO SCH (21:18)
[2023-08-04] MEDS: HYDROmorphone 0.5 MG/0.5 ML SYRINGE IVP PRN (22:32)
--- NOTE | 2023-08-05 12:13 | P.CNNES ---
History of Present Illness Consult date: 08/05/23 Requesting physician: Cinthia Strickland Reason for Consult: head injury, abnormal ct History of Present Illness: this is a 63-year-old gentleman who presented emergency department after a fall with the episode of dizziness and right lower extremity weakness. Patient stated that this past Sunday around 1 PM and was walking down the stairs and the he got dizzy and the EEG felt his right leg gave out as a result he fell down the stairs and was 5 steps of the stairs and he briefly lost consciousness. he says he had intermittent dizziness after taking Percocet ended usually short lasting but this time what happened while he was walking down the stairs. yesterday he had a headache and was throughout his entire brain but today it's very mild headache and it's over the occipital region denies any nausea any vomiting any photophobia any photophobia. Denies any visual disturbance appear denies any numbness. He has chronic lower back pain that radiates down his leg. He denies any history of stroke, seizures. Denies being on any antiplatelets at. Denies history of atrial fibrillation. He is diabetic.patient states he has a shoulder tear that's chronic but feels after the fall he feels is more painful and her entire right side is painful.patient does smoke cigarettes sporadically. He uses marijuana. Rarely drinks alcohol. Denies any illicit drug use. Some of the work-up during this hospital visit consisted of: CT of the head is reported as no definitive evidence of intracranial hemorrhage, midline shift or mass effect. Slightly bubulus appearance along the superior sagittal sinus is favored to represent anatomic variation but very small subdural hematoma in this location cannot be excluded. Follow-up as clinically warranted. I personally reviewed that a CT of the head and there is no acute or subacute ischemia. Regarding the subdural that was questionable. CT cervical spine is reported as no evidence of acute cervical spine fracture or traumatic malalignment. Moderate cervical spondylosis. the ED team spoke with the stroke interventionalist (Dr. Will) reviewed that at images himself and was not impressed with any images and did not think any intervention or immediate treatment was needed. He recommended MRI of the brain per the ED team. Review of Systems Review of system: The 12 point system was reviewed and apparent positive and negative per HPI. 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 of kidney stones, History of Any Multi-Drug Resistant Organisms: None Reported Past Surgical History: Appendectomy, Hernia Repair, Orthopedic Surgery, Prostate Surgery Additional Past Surgical History / Comment(s): 2015-robotic prostatectomy, A RTHROSCOPIC RIGHT KNEE, LEFT WRIST,LT ELBOW AND LEFT SHOULDER SURG., surgery to removed nodules from throat Past Anesthesia/Blood Transfusion Reactions: No Reported Reaction Past Psychological History: No Psychological Hx Reported Smoking Status: Current some day smoker, Former smoker Past Alcohol Use History: Occasional Past Drug Use History: Marijuana - Past Family History Mother Family Medical History: No Reported History Medications and Allergies Home Medications Medication Instructions Recorded Confirmed Type Ibuprofen [Motrin] 800 mg PO BID PRN 03/27/22 08/04/23 History Dulaglutide [Trulicity] 0.75 mg SQ SA 08/04/23 08/04/23 History oxyCODONE-APAP 5-325MG [Percocet 1 tab PO TID 08/04/23 08/04/23 History 5-325 mg] Allergies Allergy/AdvReac Type Severity Reaction Status Date / Time No Known Allergies Allergy Verified 08/04/23 15:57 Physical Examination - Vital Signs Vital Signs: Vital Signs Temp Pulse Resp BP Pulse Ox 08/05/23 08:00 98.5 F 62 18 129/97 96 08/05/23 05:58 54 L 14 115/76 96 08/05/23 04:14 98.2 F 83 18 115/74 96 08/05/23 00:34 49 L 16 109/76 95 08/04/23 22:17 65 17 101/64 96 08/04/23 21:19 55 L 20 113/79 97 08/04/23 19:55 61 20 109/76 96 08/04/23 16:16 59 L 18 110/85 96 08/04/23 14:36 74 18 114/88 94 L 08/04/23 13:31 98.4 F 92 22 139/104 96 GENERAL: The patient is lying in bed and is in mild acute distress. NEUROLOGICAL: Higher mental function: The patient is awake, alert, oriented to self, place and time. Patient is following commands. No aphasia and no neglect. Cranial nerves: The pupils are round, equal and reactive to light and accommodation. Visual castanon are full to confrontation throughout. Extraocular movement is intact no nystagmus is noted. Facial sensation is normal to touch throughout. The facial strength is normal throughout. Hearing is normal bilaterally to hand rub. Tongue is midline and moved [id number] without any difficulty. No dysarthria is noted. Shoulder shrug is normal bilaterally. Motor: The strength is limited in right upper extremity because of pain. But givens s at least 4+ in right upper extremity. Otherwise 5 over 5 throughout. Normal tone and bulk. Cerebellum: Normal finger to nose on left but limited on right because of pain. Sensation: Sensation is normal to touch throughout. Reflexes (right/left): 2+ throughout. Plantars are downgoing bilaterally. Results - Laboratory Findings CBC and BMP: 08/04/23 14:29 08/04/23 14:29 Abnormal Lab Findings: Abnormal Labs 08/04/23 14:29 Sodium 136 L Carbon Dioxide 21 L Glucose 174 H Assessment and Plan Assessment: this is a 63-year-old gentleman who presents because of dizziness with right lower extremity weakness as a results fell down the stairs and felt he had a brief loss of consciousness that was very brief. Denies any history of stroke. He does have underlying chronic lower back pain. No history of seizures. CT head showed ? Fall due to transient episode of dizziness with right lower extremity weakness: rule out any stroke. Patient stated that he has a chronic brief intermittent dizziness after using Percocet and has chronic lower back pain with radiation to leg so possible right lumbosacral radiculopathy. ?Subdural hematoma along super sagital on CT head. Brief syncopal episode likely due to fall DM Tobacco use Plan: ?Subdural hematoma along super sagital on CT head. Dr. Will reviewed images and did not feel it was remarkable and recommended MRI Brain. Will get repeat CT head, and will get CTA head and neck and CT lumbar. Ordered MRI Brain Ordered routine EEG because of syncopal spell. Unlikely seizure. will avoid any antiplatelets especially with this questionable bleed. Patient was also hold off on aspirin since it irritates GI. Ordered 2-D echo consulted PT and OT Continue neuro checks Cardiac monitoring We'll defer the rest of the medical measure the primary and other specialists The plan was discussed with the patient and the primary attending Thank you for the consultation Dr. Barajas will resume neurology service tomorrow A.M. Time with Patient: Greater than 30
--- NOTE | 2023-08-05 12:15 | CT ---
EXAMINATION TYPE: CT brain wo con DATE OF EXAM: 08/05/2023 COMPARISON: 08/04/2023 INDICATION: headache. Abnormal brain CT yesterday DLP: 1176.6 mGycm, Automated exposure control for dose reduction was used. CONTRAST: None CT of the brain is performed utilizing 3 mm thick sections through the posterior fossa and 3 mm thick sections through the remaining calvarium. Study is performed within 24 hours of arrival to the hosp ital. No abnormal hyperdensity is present to suggest an acute intracranial hemorrhage. No mass lesion is evident. No acute infarcts are evident. Ventricles and sulci are appropriate for the patient age. The superior sagittal sinus is visualized axial and sagittal planes appears unremarkable. There appea rs to be a slight prominence of the anterior portion stable. No extra-axial collection is identified based on this exam. Follow up. Paranasal sinuses and mastoid air cells within the [id number] are clear. IMPRESSION: 1. No significant interval change from prior exam. 2. No suspicious subdural hematoma based on the current imaging. 3. Follow-up MRI can be performed as clinically indicated
--- NOTE | 2023-08-05 12:20 | CT ---
EXAMINATION TYPE: CT lumbar spine wo con DATE OF EXAM: 08/05/2023 COMPARISON: 06/06/2019 HISTORY: headache and leg weakness with back pain CT DLP: 2261.6 mGycm CONTRAST: None TECHNIQUE: CT of the lumbar spine is performed on a spiral scan at 3 mm thick sections. Reconstructed images are performed in the coronal and sagittal planes. FINDINGS: Vacuum disc phenomenon is present at L2-3 through L5-S1. Disc space narrowing is present L5 -S1. Spondylosis is present with small vertebral body spurs. T12-L1: No focal disc herniation or significant disc bulge is evident. No spinal canal stenosis or neural foraminal stenosis is present. L1-L2: Minimal broad-based disc bulge is present with anterior thecal sac contact. No AP spinal canal stenosis is present. Neural foramen are patent L2-L3: Broad-based disc bulge is present with anterior thecal sac flattening. No AP spinal canal sten osis present. Mild foraminal narrowing is present, greater on the right. L3-L4: Minimal residual disc bulge may be present. No AP spinal canal stenosis is present. There is m oderate left and right foraminal stenosis. Facet degenerative changes are present. L4-L5: Disc bulge is present with mild anterior thecal sac flattening. No AP spinal canal stenosis is present. Moderate to severe bilateral foraminal stenosis. L5-S1: Minimal disc bulge is present with anterior thecal sac contact. Endplate spurring associated w ith the disc material is present. No spinal canal stenosis. Severe bilateral foraminal narrowing. Fac et degenerative changes present Vertebral alignment appears normal. IMPRESSION: 1. Foraminal narrowing within the mid to lower lumbar spine greatest 05 (1. 2. Mild disc bulge multiple levels discussed above is present with anterior thecal sac contact. No sp inal canal stenosis present. 3. Multilevel degenerative disc changes mild disc space narrowing and vacuum disc phenomenon.
--- NOTE | 2023-08-05 12:29 | CT ---
EXAMINATION TYPE: CT angio head neck DATE OF EXAM: 08/05/2023 HISTORY: headache. abnormal brain CT yesterday COMPARISON: None CT DLP: 1015.8 mGycm. Automated Exposure Control for Dose Reduction was Utilized. TECHNIQUE: CTA scan of the neck is performed with IV Contrast, patient injected with 65ml mL of Isov ue 370, axial images are obtained, coronal and sagittal reformatted images are reviewed. Three-D carol nstructed images are created on an independent workstation and reviewed. Source images are reviewed. FINDINGS: Carotid/Vascular Structures: There is a 3 vessel arch. Common carotid arteries bifurcate into internal and external carotid arteries without significant marce w limiting stenosis. Some mild wall calcification is noted. Vertebral arteries are codominant. Internal carotid arteries and vertebral arteries are patent to the skull base. Cervical of [place]: Vertebral basilar system appears normal. Posterior cerebral vasculature is unrema rkable. Internal carotid arteries bifurcate normally into A1 and M1 segments. A2 segments are normal. The anterior communicating artery is patent. The right posterior communicating artery is patent. The left posterior communicating artery is patent. The sagittal sinus is visualized on this examination appears unremarkable. IMPRESSION: 1. No flow-limiting stenosis bilateral carotid bifurcations. 2. Normal [place] of [place]. 3. Sagittal sinus as visualized appears normal. NASCET criteria was used in interpretation of this exam.?
--- NOTE | 2023-08-05 13:29 | P.HPIM ---
History of Present Illness H&P Date: 08/05/23 History of present illness; patient is a 63-year-old with no significant past medical history who presents to ER because of fall. Patient stated that he was going down the stairs yesterday when he felt dizzy and his legs gave up and he fell down the stairs hitting his head. Patient also hurt his right shoulder. There was no complaint of loss of consciousness. Following that patient continued to have headache as well as blurred vision. There was no complaint of weakness of any extremity. There was no complaint of jerking movement of any extremity. Patient denies any palpitation. There is no current orthopnea or PND. Because of this fall patient came to the ER Initial lab work done in the ER showed WBC 8.6, hemoglobin 15.5, platelet count 274, sodium 136, potassium 4.3, BUN 16, creatinine 0.71, glucose 174, AST 27, ALT 35, troponin 0.012 EKG done in the ER showed heart rate of 78, no ST segment elevation or depression seen, no T-wave inversions seen. Chest x-ray done in the ER showed cardiomegaly and mild pulmonary vascular congestion X-ray of bilateral knee done showed no acute fracture or dislocation in either knees X-ray shoulder done showed no acute osseous pathology CT head done showed no acute intracranial process, no acute intracranial hemorrhage, midline shift or mass effect CT cervical spine showed no evidence of acute cervical spine fracture or traumatic malalignment Patient admitted to internal medicine service REVIEW OF SYSTEMS: CONSTITUTIONAL: No fever, no malaise, no fatigue. HEENT: No recent visual problems or hearing problems. Denied any sore throat. CARDIOVASCULAR: No chest pain, orthopnea, PND, no palpitations, no syncope. PULMONARY: No shortness of breath, no cough, no hemoptysis. GASTROINTESTINAL: No diarrhea, no nausea, no vomiting, no abdominal pain. NEUROLOGICAL: As mentioned above HEMATOLOGICAL: Denies any bleeding or petechiae. GENITOURINARY: Denies any burning micturition, frequency, or urgency. MUSCULOSKELETAL/RHEUMATOLOGICAL: Denies any joint pain, swelling, or any muscle pain. ENDOCRINE: Denies any polyuria or polydipsia. The rest of the 14-point review of systems is negative. PHYSICAL EXAMINATION: GENERAL: The patient is alert and oriented x3, not in any acute distress. Well developed, well nourished. HEENT: Pupils are round and equally reacting to light. EOMI. No scleral icterus. No conjunctival pallor. Normocephalic, atraumatic. No pharyngeal erythema. No thyromegaly. CARDIOVASCULAR: S1 and S2 present. No murmurs, rubs, or gallops. PULMONARY: Chest is clear to auscultation, no wheezing or crackles. ABDOMEN: Soft, nontender, nondistended, normoactive bowel sounds. No palpable organomegaly. MUSCULOSKELETAL: No joint swelling or deformity. EXTREMITIES: No cyanosis, clubbing, or pedal edema. NEUROLOGICAL: Gross neurological examination did not reveal any focal deficits. SKIN: No rashes. Assessment and plan Fall Right shoulder pain Headaches Monitor vital signs Monitor CBC Monitor CMP Continue telemetry monitoring Check orthostatics Fall precautions Continue pain management Repeat CT head ordered CTA head and neck ordered MRI brain ordered EEG ordered Consult neurology resume home meds Labs and medication were reviewed.. Continue same treatment. Continue with symptomatic treatment. Resume home medication. Monitor labs and vitals. DVT and GI prophylaxis. Further recommendations as per clinical course of the patient Dictation was produced using [employer] dictation software. please excuse any grammatical, word or spelling errors. 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 of kidney stones, History of Any Multi-Drug Resistant Organisms: None Reported Past Surgical History: Appendectomy, Hernia Repair, Orthopedic Surgery, Prostate Surgery Additional Past Surgical History / Comment(s): 2015-robotic prostatectomy, ARTHROSCOPIC RIGHT KNEE, LEFT WRIST,LT ELBOW AND LEFT SHOULDER SURG., surgery to removed nodules from throat Past Anesthesia/Blood Transfusion Reactions: No Reported Reaction Past Psychological History: No Psychological Hx Reported Smoking Status: Current some day smoker, Former smoker Past Alcohol Use History: Occasional Past Drug Use History: Marijuana - Past Family History Mother Family Medical History: No Reported History Medications and Allergies Home Medications Medication Instructions Recorded Confirmed Type Ibuprofen [Motrin] 800 mg PO BID PRN 03/27/22 08/04/23 History Dulaglutide [Trulicity] 0.75 mg SQ SA 03/30/24 03/30/24 History oxyCODONE-APAP 5-325MG [Percocet 1 tab PO TID 08/04/23 08/04/23 History 5-325 mg] Allergies Allergy/AdvReac Type Severity Reaction Status Date / Time No Known Allergies Allergy Verified 08/04/23 15:57 Physical Exam Vitals: Vital Signs Temp Pulse Resp BP Pulse Ox 08/05/23 08:00 98.5 F 62 18 129/97 96 08/05/23 05:58 54 L 14 115/76 96 08/05/23 04:14 98.2 F 83 18 115/74 96 08/05/23 00:34 49 L 16 109/76 95 08/04/23 22:17 65 17 101/64 96 08/04/23 21:19 55 L 20 113/79 97 08/04/23 19:55 61 20 109/76 96 08/04/23 16:16 59 L 18 110/85 96 08/04/23 14:36 74 18 114/88 94 L 08/04/23 13:31 98.4 F 92 22 139/104 96 Results CBC & Chem 7: 08/04/23 14:29 08/04/23 14:29 Labs: Abnormal Lab Results - Last 24 Hours (Table) 08/04/23 Range/Units 14:29 Sodium 136 L (137-145) mmol/L Carbon Dioxide 21 L (22-30) mmol/L Glucose 174 H (74-99) mg/dL
[2023-08-05] MEDS ORDERED: DEXTROSE 50% SYRINGE 50 ML IVP PRN ×2 (17:05)
[2023-08-05 21:54] LABS: Glucose,Whole Blood 104 mg/dL (70-110)
[2023-08-05] MEDS: INSULIN ASPART (NovoLOG) 100 UNIT/ML VIAL SQ SCH (22:09)
[2023-08-06] MEDS: ONDANSETRON 4 MG/2 ML VIAL IVP PRN (04:53)
[2023-08-06 05:47] LABS: Glucose,Whole Blood 123 mg/dL (70-110)
[2023-08-06] MEDS: HYDROmorphone 1 MG/ML 1 ML SYRINGE IVP PRN (09:25)
[2023-08-06 11:43] LABS: Glucose,Whole Blood 153 mg/dL (70-110)
--- NOTE | 2023-08-06 13:59 | CA ---
Transthoracic Echo Report Name: Gigi Johnson Age: 63 Gender: M : 1960 Exam Date: 08/06/2023 10:29 Exam Location: [facility] Ht (in): 72 Wt (lb): 245 Ordering Physician: Ozzie Bolden MD Attending/Referring Phys: Bracelet Form Coverer Isabella Pulliam. RCS Procedure CPT: Indications: stroke Cardiac Hx: Technical Quality: Technically difficult study Contrast 1: Definity Total Dose (mL): 2 Contrast 2: Agitated Saline Total Dose (mL): 10 MEASUREMENTS (Male / Female) Normal Values 2D ECHO LV Diastolic Diameter PLAX 4.8 cm 4.2 - 5.9 / 3.9 - 5.3 cm LV Systolic Diameter PLAX 3.3 cm IVS Diastolic Thickness 0.9 cm 0.6 - 1.0 / 0.6 - 0.9 cm LVPW Diastolic Thickness 1.0 cm 0.6 - 1.0 / 0.6 - 0.9 cm LV Relative Wall Thickness 0.4 RV Internal Dim ED PLAX 4.2 cm LVOT Diameter 2.2 cm LV Diastolic Volume MOD BP 161.9 cm??? 67 - 155 / 56 - 104 cm??? LV Systolic Volume MOD BP 55.2 cm??? 22 - 58 / 19 - 49 cm??? LV Ejection Fraction MOD BP 65.9 % >= 55 % LV Cardiac Index MOD BP 3009.4 cm???/min???m??? LV Diastolic Volume MOD 4C 160.2 cm??? LV Systolic Volume MOD 4C 56.9 cm??? LV Ejection Fraction MOD 4C 64.5 % LV Cardiac Index MOD 4C 2917.2 cm???/min???m??? LV Diastolic Length 4C 9.0 cm LV Systolic Length 4C 7.5 cm LV Diastolic Volume MOD 2C 161.8 cm??? LV Systolic Volume MOD 2C 50.2 cm??? LV Ejection Fraction MOD 2C 69.0 % LV Cardiac Index MOD 2C 3150.7 cm???/min???m??? LV Diastolic Length 2C 8.9 cm LV Systolic Length 2C 7.0 cm LA Volume 62.2 cm??? 18 - 58 / 22 - 52 cm??? LA Volume Index 25.8 cm???/m??? 16 - 28 cm???/m??? DOPPLER AV Peak Velocity 182.4 cm/s AV Peak Gradient 13.3 mmHg AV Mean Velocity 125.2 cm/s AV Mean Gradient 7.1 mmHg AV Velocity Time Integral 36.0 cm LVOT Peak Velocity 111.2 cm/s LVOT Peak Gradient 4.9 mmHg LVOT Velocity Time Integral 23.6 cm LVOT Stroke Volume 92.1 cm??? LVOT Stroke Volume Index 39.7 ml/m??? LVOT Cardiac Index 2599.7 cm???/min???m??? AV Area Cont Eq vti 2.6 cm??? AV Area Cont Eq pk 2.4 cm??? MV Area PHT 3.2 cm??? Mitral E Point Velocity 59.2 cm/s Mitral A Point Velocity 75.9 cm/s Mitral E to A Ratio 0.8 MV Deceleration Time 239.2 ms PV Peak Velocity 99.1 cm/s PV Peak Gradient 3.9 mmHg FINDINGS Left Ventricle Left ventricular ejection fraction is estimated at 60-65 %. Mildly increased left ventricular diastolic volume. Left ventricular wall thickness normal. No obvious regional wall motion abnormalities. Right Ventricle Mild right ventricular dilatation with normal function. Unable to determine right ventricular systolic function. Right Atrium Normal right atrial size. Left Atrium Mildly increased left atrial volume. Mildly increased left atrial area. Mitral Valve Structurally normal mitral valve. No evidence for mitral valve prolapse. No mitral stenosis. Trace mitral regurgitation. Aortic Valve Trileaflet aortic valve. No aortic stenosis. Trace aortic regurgitation. Tricuspid Valve Structurally normal tricuspid valve. No tricuspid stenosis. Trace tricuspid regurgitation. Pulmonic Valve Structurally normal pulmonic valve. No pulmonic stenosis. Trace pulmonic regurgitation. Pericardium No pericardial effusion. Aorta Normal size aortic root and proximal ascending aorta. CONCLUSIONS Negative bubble study. Left ventricular ejection fraction 60-65% Mild increased left ventricular wall thickness Mild right ventricular dilation Mildly dilated left atrium Trace mitral regurgitation No pericardial effusion Previewed by: Dr. Rashad Moralez DO (Electronically Signed) Final Date: 06 August 2023 13:59
--- NOTE | 2023-08-06 15:09 | MR ---
EXAMINATION TYPE: MR brain wo con DATE OF EXAM: 08/06/2023 COMPARISON: CT brain 08/05/2023 HISTORY: Headache, Abnormal CT, Head trauma from fall CONTRAST: Performed utilizing 0 mL intravenous Gadavist gadolinium contrast. TECHNIQUE: Multiplanar, multiecho imaging on a 3.0 Jeny magnet is performed through the brain. Stud y is performed within 24 hours of arrival to the hospital. The craniovertebral junction is normal. The pituitary is normal. Diffusion-weighted imaging is performed. No abnormal hyperintensity is present to suggest an acute i ntracranial infarct or acute ischemic change. There is some scattered periventricular white matter hyperintensities. These are nonspecific. Differe ntial diagnosis includes chronic white matter ischemic change, vasculitis, multiple sclerosis. Appears to be normal flow void within the sagittal sinus. Ventricles and sulci are appropriate for the patient age. IMPRESSION: 1. Mild periventricular white matter ischemic-type changes.
[2023-08-06 16:50] LABS: Glucose,Whole Blood 186 mg/dL (70-110)
[2023-08-06] MEDS: polyethylene glycoL 3350 17 GM POWD.PACK PO SCH (16:57)
[2023-08-06 21:51] LABS: Glucose,Whole Blood 115 mg/dL (70-110)
--- NOTE | 2023-08-06 22:01 | MR ---
EXAMINATION TYPE: MR cspine/lspine wo con DATE OF EXAM: 08/06/2023 9:30 PM CLINICAL INDICATION:Male, 63 years old with history of spinal stenosis, balance issues, fall; PHH, Sp inal stenosis, balance issues, fall COMPARISON: 03/15/2015 TECHNIQUE: Multi planar, multi sequence imaging was performed utilizing: T1-weighted, T2-weighted, a nd turbo inversion recovery imaging of the cervical and lumbar spine. MR contrast: IV Contrast: cc , None. FINDINGS: CERVICAL: Alignment: The cervical vertebral bodies have preserved heights. Alignment is within normal limits gi sandee patient positioning. Bones: Multilevel disc space narrowing and osteophyte formation with facet and uncovertebral joint ar thropathy. Cord: The spinal cord is unremarkable with regards to their signal intensity and morphology. Discs: Multilevel disc desiccation is present. C2-C3: No significant disc pathology. The spinal canal is patent. No neural foraminal stenosis. C3-C4: A disc osteophyte complex is present with mild to moderate spinal canal stenosis. Bilateral f acet and uncovertebral joint arthropathy are present with severe left and moderate to severe right ne ural foraminal stenosis. C4-C5: A disc osteophyte complex is present with severe spinal canal stenosis. Bilateral facet and u ncovertebral joint arthropathy are present with severe bilateral neural foraminal stenosis. C5-C6: A disc osteophyte complex is present with severe spinal canal stenosis. Bilateral facet and u ncovertebral joint arthropathy are present with severe bilateral neural foraminal stenosis. C6-C7: A disc osteophyte complex is present with mild spinal canal stenosis. Bilateral facet and unc overtebral joint arthropathy are present with moderate to severe right and moderate left neural maria luisa inal stenosis. C7-T1: No significant disc pathology. The spinal canal is patent. No neural foraminal stenosis. Other: None. LUMBAR: Alignment: The lumbar vertebral bodies have preserved heights and straightened alignment. Cord: The conus medullaris and the distal spinal cord appear unremarkable with regards to their signa l intensity and morphology. Bones/Discs: Multilevel disc degeneration changes with osteophyte formation, disc space narrowing, Sc hmorl's nodes, and facet joint arthropathy. Reactive bony edema involving the adjoining endplates of L4-L5 on the left. Multilevel disc desiccation is present. T12-L1: No evidence of significant spinal canal stenosis or neural foraminal stenosis. L1-L2: No evidence of significant spinal canal stenosis or neural foraminal stenosis. L2-L3: Disc bulge and facet joint arthropathy result in mild spinal canal and moderate bilateral neur al foraminal stenosis. L3-L4: Disc bulge and facet joint arthropathy result in mild to moderate spinal canal and moderate to severe bilateral neural foraminal stenosis. L4-L5: Disc bulge and facet joint arthropathy result in mild spinal canal and moderate bilateral neur al foraminal stenosis. L5-S1: Disc bulge and facet joint arthropathy result in mild spinal canal and severe right and modera te left bilateral neural foraminal stenosis. No significant spinal canal or neural foraminal stenosis in the remainder of the visualized levels. Other findings: None. IMPRESSION: Overall progression of degeneration changes in the cervical and lumbar spine when comparing to 2014 s tudy. 1. Moderate to severe degeneration changes in the cervical spine with severe spinal canal stenosis a t C4-C5 and C5-C6. Cord signal is maintained. 2. Moderate degeneration changes at these levels with severe neural foraminal stenosis C4-C5 and C5- C6 bilaterally and moderate to severe right and moderate left C6-C7. 3. Degeneration changes in the lumbar spine with multilevel neural foraminal stenosis worse at L5-S1 with severe right and moderate left, moderate bilateral L4-L5 and moderate to severe bilateral L3-L4 . 4. No evidence for significant spinal canal stenosis in the lumbar spine.
--- NOTE | 2023-08-07 01:20 | EEG ---
ELECTROENCEPHALOGRAM REPORT PREAMBLE: This is a 63-year-old male with syncope, rule out seizure. The patient came to the ED after a fall with an episode of dizziness and right lower extremity weakness. There was loss of consciousness, but only brief. CURRENT MEDICATIONS: 1. NovoLog. 2. Trulicity. 3. Percocet. 4. Zofran. EEG FINDINGS: This is a 21-channel digital EEG recorded with video component, utilizing 10/20 international system with referential and bipolar montages. Background consists of well developed, well regulated, low voltage activity in about 9 hertz alpha. Background is posterior dominant and reactive to eye opening and closing. Intermixed theta frequency rhythm was seen during most of the study because of being drowsy. Deeper stages of sleep were not seen. Photic driving response was not seen. No focal or generalized epileptiform activity was seen. IMPRESSION: This is a normal awake and drowsy EEG. No focal, lateralized, or epileptiform activity was seen. MMODL / IJN: [id number] /
[2023-08-07 05:40] LABS: Glucose,Whole Blood 107 mg/dL (70-110)
--- NOTE | 2023-08-07 05:56 | P.PN ---
Subjective Progress Note Date: 08/06/23 History of present illness; patient is a 63-year-old with no significant past medical history who presents to ER because of fall. Patient stated that he was going down the stairs yesterday when he felt dizzy and his legs gave up and he fell down the stairs hitting his head. Patient also hurt his right shoulder. There was no complaint of loss of consciousness. Following that patient continued to have headache as well as blurred vision. There was no complaint of weakness of any extremity. There was no complaint of jerking movement of any extremity. Patient denies any palpitation. There is no current orthopnea or PND. Because of this fall patient came to the ER Initial lab work done in the ER showed WBC 8.6, hemoglobin 15.5, platelet count 274, sodium 136, potassium 4.3, BUN 16, creatinine 0.71, glucose 174, AST 27, ALT 35, troponin 0.012 EKG done in the ER showed heart rate of 78, no ST segment elevation or depression seen, no T-wave inversions seen. Chest x-ray done in the ER showed cardiomegaly and mild pulmonary vascular congestion X-ray of bilateral knee done showed no acute fracture or dislocation in either knees X-ray shoulder done showed no acute osseous pathology CT head done showed no acute intracranial process, no acute intracranial hemorrhage, midline shift or mass effect CT cervical spine showed no evidence of acute cervical spine fracture or traumatic malalignment Patient admitted to internal medicine service 08/06/2023 Patient is seen and evaluated in follow-up today currently awaiting MRI of the brain undergoing neurological workup. Patient continues to report extreme right shoulder pain and images have been negative. Patient reports he does have histo ry of rotator cuff tear on that arm. Continue with pain management and also PT/OT therapy. Patient has been encouraged to increase activity as tolerated and frequent walking around the halls. Patient is afebrile with no reported chest pain or shortness of breath. Patient tolerating diet and denies any nausea or vomiting. Review of systems: Constitutional: No reports of fatigue, fever, or chills Cardiovascular: No reports of chest pain or palpitations Respiratory: No reports of shortness of breath or cough GI: No reports of nausea, vomiting, or diarrhea : No reports of dysuria or retention Neurovascular: No reports of weakness or numbness, reports of right shoulder pain that persists All medications have been reviewed PHYSICAL EXAMINATION: GENERAL: The patient is alert and oriented x3. Well developed, well nourished. Obese HEENT: Pupils are round and equally reacting to light. EOMI. No scleral icterus. No conjunctival pallor. Normocephalic, atraumatic. No pharyngeal erythema. No thyromegaly. CARDIOVASCULAR: S1 and S2 muffled PULMONARY: Diminished breath sounds bilaterally otherwise clear to auscultation with no wheezing or rhonchi noted.. ABDOMEN: Soft, obese, nontender, nondistended, normoactive bowel sounds. No palpable organomegaly. MUSCULOSKELETAL: No joint swelling or deformity. EXTREMITIES: No cyanosis, clubbing, or pedal edema. Right shoulder tenderness on palpation NEUROLOGICAL: Gross neurological examination did not reveal any focal deficits. SKIN: No rashes. Assessment: Fall likely due to transient episode of dizziness, rule out CVA versus TIA, possible syncope Right shoulder pain secondary to fall along with history of rotator cuff tear on the right Headaches history History of chronic back pain History of diabetes mellitus History of DVT and PE History of osteoarthritis Continued ongoing nicotine use Occasional THC use Obesity with a BMI of 33.2 GI prophylaxis DVT prophylaxis Full code Plan: Patient is being followed by neurology undergoing workup including MRI of the brain which is currently pending Patient denies any further episodes of dizziness reports some generalized weakness but continues to report continued right shoulder pain. Imaging has been negative. Patient reports history of rotator cuff repair and strongly re commend outpatient follow-up with orthopedics PT/OT therapy to evaluate Encouraged to increase activity as tolerated Will await MRI and discuss further with neurology regarding discharge planning Repeat labs in the a.m. Possible discharge planning in the next 24 to 48 hours The impression and plan of care has been dictated by Ching Hess, Nurse Practitioner as directed. Dr. Marvin MD I have performed a history and examination and MDM of this patient, discussed the same with the dictator, and agree with the dictator's assessment and plan as written ,documented as a scribe. Based on total visit time, I have performed more than 50% of the visit. Objective - Vital Signs Vital signs: Vital Signs Temp 98.4 F 08/06/23 07:25 Pulse 75 08/06/23 07:25 Resp 17 08/06/23 07:25 BP 129/84 08/06/23 07:25 Pulse Ox 95 08/06/23 07:25 FiO2 Intake & Output 08/05/23 08/06/23 08/06/23 18:59 06:59 18:59 Intake Total 1200 Balance 1200 Weight 111.13 kg Intake: Oral 1200 Other: # Voids 3 - Labs CBC & Chem 7: 08/04/23 14:29 08/04/23 14:29 Labs: Abnormal Lab Results - Last 24 Hours (Table) 08/06/23 08/06/23 08/06/23 Range/Units 05:45 06:20 11:41 POC Glucose (mg/dL) 123 H 153 H (70-110) mg/dL Hemoglobin A1c 8.2 H (<=6.0) %
--- NOTE | 2023-08-07 10:13 | P.PN ---
Subjective Progress Note Date: 08/06/23 Patient was seen by Dr. Ozzie Bolden in neurology consultation yesterday. Please refer to his note for details. Patient is a 63-year-old male who suffered from a fall and had dizziness, right leg weakness and passed out briefly. CT head revealed subdural versus artifact but the repeat CT head was negative. MRI of the brain also came back negative for any subdural hematoma and EEG were ordered. Patient at this time tells me that he was going downstairs when he suddenly became dizzy and he tried to grab the railing, and suddenly he felt that right leg was "not there" like a jelly and his right leg gave out and he fell. He thinks he may have passed out only but for a short while. Patient sat up, had a headache and some blurred vision. Therefore he came to the hospital. Patient has history of diabetes for about 5 to 6 years. Also has history of prostate surgery after which she developed some blood infection, blood clot pneumonia and hernia. At present patient states that sometimes he feels he wants to fall to the right while walking. Otherwise he can walk well. He has blurred vision is better. Patient admits to having chronic back problems and also in the neck. He never had any back or neck surgery. Some of the work-up during this hospital visit consisted of: CT of the head is reported as no definitive evidence of intracranial hemorrhage, midline shift or mass effect. Slightly bubulus appearance along the superior sagittal sinus is favored to represent anatomic variation but very small subdural hematoma in this location cannot be excluded. Follow-up as clinically warranted. I personally reviewed that a CT of the head and there is no acute or subacute ischemia. Regarding the subdural that was questionable. CT cervical spine is reported as no evidence of acute cervical spine fracture or traumatic malalignment. Moderate cervical spondylosis. the ED team spoke with the stroke interventionalist (Dr. Will) reviewed that at images himself and was not impressed with any images and did not think any intervention or immediate treatment was needed. He recommended MRI of the brain per the ED team. Objective - Vital Signs Vital signs: Vital Signs Temp 98.1 F 08/06/23 13:54 Pulse 68 08/06/23 13:54 Resp 17 08/06/23 13:54 BP 135/83 08/06/23 13:54 Pulse Ox 96 08/06/23 13:54 FiO2 Intake & Output 08/05/23 08/06/23 08/06/23 18:59 06:59 18:59 Intake Total 1200 Balance 1200 Weight 111.13 kg Intake: Oral 1200 Other: # Voids 3 3 - Exam Patient's mental status, speech and language functions are normal. Cranial nerves II through XII are normal. Visual castanon are full, face is symmetric, extraocular muscles intact, pupils, equal and round and reactive to light. Tongue protrudes midline. Shoulder shrug normal. On muscle strength testing, there is no pronator drift and the strength is normal in arms and legs distally and proximally. Sensory to touch is equal with no neglect. No ataxia for [id number]-[id number] or lnzo-sm-[id number] testing. Deep tendon reflexes are symmetric, 1+ at the biceps, 1 brachioradialis, trace at the knees, 1 ankles and plantars are upgoing bilaterally. Patient walks fairly stable with normal base. - Labs CBC & Chem 7: 08/04/23 14:29 08/04/23 14:29 Labs: Abnormal Lab Results - Last 24 Hours (Table) 08/06/23 08/06/23 08/06/23 Range/Units 05:45 06:20 11:41 POC Glucose (mg/dL) 123 H 153 H (70-110) mg/dL Hemoglobin A1c 8.2 H (<=6.0) % 08/06/23 Range/Units 16:48 POC Glucose (mg/dL) 186 H (70-110) mg/dL Hemoglobin A1c (<=6.0) % Assessment and Plan Assessment: This is a 63-year-old gentleman who presents because of dizziness with transient right lower extremity weakness, and as a results fell down the stairs and felt he had a brief loss of consciousness that was very brief. Denies any history of stroke. He does have underlying chronic lower back pain. No history of seizur es. Fall due to transient episode of dizziness with right lower extremity weakness: rule out any stroke. Patient stated that he has a chronic brief intermittent dizziness after using Percocet and has chronic lower back pain with radiation to leg so possible right lumbosacral radiculopathy. Subdural hematoma ruled out. Brief syncopal episode likely due to fall DM Tobacco use Plan: MRI of the brain revealed mild periventricular white matter ischemic type changes. I personally reviewed MRI agree with the findings. No acute process. CTA head and neck revealed no flow-limiting stenosis bilateral carotid bifurcat ions. Normal [place]. EEG was normal awake and drowsy. No focal, lateralized or epileptiform activity was seen. No indication for antiepileptic medication. 2D echo revealed normal left ventricular EF 60 to 65%. Mildly increased left ventricular diastolic volume. No obvious regional wall motion abnormalities. Left atrium is mildly increased in volume. Negative bubble study. Patient has history of chronic neck and lower back issues. His previous MRI of the cervical spine revealed multilevel significant spinal stenosis. Patient does have abnormality in the examination with bilateral Babinski's. We will check MRI of the cervical and lumbar spine to evaluate for spinal stenosis. Patient has history of diabetes with hemoglobin A1c 8.2. Suggest optimize control of diabetes. Recommend starting aspirin 81 mg daily, if no medical contraindications. B12 580, folate 11.70, both normal. Consulted PT and OT Continue neuro checks Cardiac monitoring We'll defer the rest of the medical measure the primary and other specialists
[2023-08-07 11:01] LABS: Basophils # (A) 0.08 X 10*3/uL (0.00-0.10); Eosinophils # (A) 0.34 X 10*3/uL (0.04-0.35); Eosinophils % (A) 4.4 %; HCT 43.1 % (39.6-50.0); HGB 14.3 g/dL (13.0-17.0); Lymphocytes # (A) 2.49 X 10*3/uL (0.90-5.00); Lymphocytes % (A) 32.5 %; MCHC 33.2 g/dL (32.0-37.0); MCV 96.4 FL (80.0-97.0); Mean Platelet Volume 9.7 FL (9.5-12.2); Monocytes # (A) 0.65 X 10*3/uL (0.20-1.00); Monocytes % (A) 8.5 %; NRBC Per 100 WBC 0 X 10*3/uL (0.00-0.01); Neutrophils # (A) 4.07 X 10*3/uL (1.80-7.70); Neutrophils % (A) 53.3 %; Platelet Count 249 X 10*3/uL (140-440); RBC 4.47 X 10*6/uL (4.40-5.60); RDW 12.7 % (11.5-14.5); WBC 7.65 X 10*3/uL (4.50-10.00)
[2023-08-07 11:19] LABS: BUN/Creat Ratio 13.44 Ratio (12.00-20.00); Blood Urea Nitrogen 12.1 mg/dL (9.0-27.0); Calcium 8.9 mg/dL (8.7-10.3); Carbon Dioxide 24.7 mmol/L (21.6-31.8); Chloride 105 mmol/L (96-109); Glucose 106 mg/dL (70-110); LDL Cholesterol,Calculated 80.4 mg/dL (0.0-131.0); Magnesium 2.3 mg/dL (1.5-2.4); Potassium 4.4 mmol/L (3.5-5.5); Sodium 138 mmol/L (135-145)
[2023-08-07 11:55] LABS: Glucose,Whole Blood 140 mg/dL (70-110)
[2023-08-07] MEDS: FAMOTIDINE 20 MG TAB PO SCH (12:33)
[2023-08-07] MEDS: ONDANSETRON 4 MG/2 ML VIAL IVP PRN (13:39)
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
[2023-08-07] MEDS: MELOXICAM 7.5 MG TAB PO SCH (16:13)
[2023-08-07] MEDS: CEPHALEXIN 500 MG CAP PO SCH (16:13)
[2023-08-07] MEDS: BACITRACIN ZINC 500 UNIT/GM OINT 28.4 GM TUBE TOPICAL SCH (16:16)
[2023-08-07 16:32] LABS: Glucose,Whole Blood 141 mg/dL (70-110)
[2023-08-07] MEDS: HYDROmorphone 0.5 MG/0.5 ML SYRINGE IVP PRN (18:18)
[2023-08-07] MEDS: oxyCODONE-APAP 10-325MG 1 EACH TAB PO PRN (18:35)
[2023-08-07 20:08] LABS: Glucose,Whole Blood 148 mg/dL (70-110)
--- NOTE | 2023-08-08 05:25 | P.PN ---
Subjective Progress Note Date: 08/07/23 History of present illness; patient is a 63-year-old with no significant past medical history who presents to ER because of fall. Patient stated that he was going down the stairs yesterday when he felt dizzy and his legs gave up and he fell down the stairs hitting his head. Patient also hurt his right shoulder. There was no complaint of loss of consciousness. Following that patient continued to have headache as well as blurred vision. There was no complaint of weakness of any extremity. There was no complaint of jerking movement of any extremity. Patient denies any palpitation. There is no current orthopnea or PND. Because of this fall patient came to the ER Initial lab work done in the ER showed WBC 8.6, hemoglobin 15.5, platelet count 274, sodium 136, potassium 4.3, BUN 16, creatinine 0.71, glucose 174, AST 27, ALT 35, troponin 0.012 EKG done in the ER showed heart rate of 78, no ST segment elevation or depression seen, no T-wave inversions seen. Chest x-ray done in the ER showed cardiomegaly and mild pulmonary vascular congestion X-ray of bilateral knee done showed no acute fracture or dislocation in either knees X-ray shoulder done showed no acute osseous pathology CT head done showed no acute intracranial process, no acute intracranial hemorrhage, midline shift or mass effect CT cervical spine showed no evidence of acute cervical spine fracture or traumatic malalignment Patient admitted to internal medicine service 08/06/2023 Patient is seen and evaluated in follow-up today currently awaiting MRI of the brain undergoing neurological workup. Patient continues to report extreme right shoulder pain and images have been negative. Patient reports he does have histo ry of rotator cuff tear on that arm. Continue with pain management and also PT/OT therapy. Patient has been encouraged to increase activity as tolerated and frequent walking around the halls. Patient is afebrile with no reported chest pain or shortness of breath. Patient tolerating diet and denies any nausea or vomiting. 08/07/2023 This morning in follow-up currently sitting up in the chair reporting feeling dizzy although was able to walk with no difficulties. Patient continues with right shoulder pain as well as back pain and underwent extensive neurological workup which has been negative. MRI of the brain was negative and neurology recommending aspirin along with statin therapy. Cervical spine MRI was also performed showing significant stenosis and orthopedics was consulted and pending. Per nursing staff patient continues to require IV narcotics and will adjust medications accordingly. Discussed with the patient about limiting IV Dilaudid. Patient reports he follows document management specialist outpatient and has history of chronic back pain and [facility]. Will await orthopedic evaluation. Encouraged increase activity as tolerated. Possible discharge planning in 24 hours Review of systems: Constitutional: No reports of fatigue, fever, or chills Cardiovascular: No reports of chest pain or palpitations, reports of dizziness Respiratory: No reports of shortness of breath or cough GI: No reports of nausea, vomiting, or diarrhea : No reports of dysuria or retention Neurovascular: No reports of weakness or numbness, reports of right shoulder pain that persists All medications have been reviewed PHYSICAL EXAMINATION: GENERAL: The patient is alert and oriented x3. Well developed, well nourished. Obese HEENT: Pupils are round and equally reacting to light. EOMI. No scleral icterus. No conjunctival pallor. Normocephalic, atraumatic. No pharyngeal erythema. No thyromegaly. CARDIOVASCULAR: S1 and S2 muffled PULMONARY: Diminished breath sounds bilaterally otherwise clear to auscultation with no wheezing or rhonchi noted.. ABDOMEN: Soft, obese, nontender, nondistended, normoactive bowel sounds. No palpable organomegaly. MUSCULOSKELETAL: No joint swelling or deformity. EXTREMITIES: No cyanosis, clubbing, or pedal edema. Right shoulder tenderness on palpation NEUROLOGICAL: Gross neurological examination did not reveal any focal deficits. SKIN: No rashes. Assessment: Fall likely due to transient episode of dizziness, ruled out CVA, possible syncope Right shoulder pain secondary to fall along with history of rotator cuff tear on the right Headaches history History of chronic back pain Significant cervical stenosis with degenerative joint disease noted on MRI History of diabetes mellitus History of DVT and PE History of osteoarthritis Continued ongoing nicotine use Occasional THC use Obesity with a BMI of 33.2 GI prophylaxis DVT prophylaxis Full code Plan: Patient is being followed by neurology undergoing workup including MRI of the brain which is negative for CVA. Cervical spine MRI was also performed showing significant cervical stenosis and orthopedics has been consulted for input and recommendations Patient reports episodes of dizziness after walking for a while. Imaging has been negative. Patient reports history of rotator cuff repair and strongly recommend outpatient follow-up with orthopedics Adjust pain medications and limit IV Dilaudid. Discussed with patient as well as nursing staff. Patient reports he follows with [facility] outpatient Encouraged to increase activity as tolerated Will discuss further with consultations regarding treatment plan moving forward Possible discharge planning in the next 24 to 48 hours The impression and plan of care has been dictated by Ching Hess, Nurse Practitioner as directed. Dr. Lenore MD I have performed a history and examination and MDM of this patient, discussed the same with the dictator, and agree with the dictator's assessment and plan as written ,documented as a scribe. Based on total visit time, I have performed more than 50% of the visit. Objective - Vital Signs Vital signs: Vital Signs Temp 98.2 F 08/07/23 07:17 Pulse 77 08/07/23 07:17 Resp 19 08/07/23 07:17 BP 117/80 08/07/23 07:17 Pulse Ox 94 L 08/07/23 07:17 FiO2 Intake & Output 08/06/23 08/07/23 08/07/23 18:59 06:59 18:59 Other: # Voids 4 4 - Labs CBC & Chem 7: 08/07/23 06:05 08/07/23 06:05 Labs: Abnormal Lab Results - Last 24 Hours (Table) 08/06/23 08/06/23 08/06/23 Range/Units 11:41 16:48 21:49 POC Glucose (mg/dL) 153 H 186 H 115 H (70-110) mg/dL
[2023-08-08 06:00] LABS: Glucose,Whole Blood 120 mg/dL (70-110)
[2023-08-08 08:33] VITALS: BP 138/84; PULSE 86; RESP 17; TEMP 97.9
--- NOTE | 2023-08-08 09:57 | P.PN ---
Subjective Progress Note Date: 08/07/23 08/07/2023: Patient was seen for follow-up. Patient is laying comfortably in the bed. Offers no new complaints. 08/06/2023: Patient was seen by Dr. Ozzie Bolden in neurology consultation yesterday. Please refer to his note for details. Patient is a 63-year-old male who suffered from a fall and had dizziness, right leg weakness and passed out briefly. CT head revealed subdural versus artifact but the repeat CT head was negative. MRI of the brain also came back negative for any subdural hematoma and EEG were ordered. Patient at this time tells me that he was going downstairs when he suddenly became dizzy and he tried to grab the railing, and suddenly he felt that right leg was "not there" like a jelly and his right leg gave out and he fell. He thinks he may have passed out only but for a short while. Patient sat up, had a headache and some blurred vision. Therefore he came to the hospital. Patient has history of diabetes for about 5 to 6 years. Also has history of prostate surgery after which she developed some blood infection, blood clot pneumonia and hernia. At present patient states that sometimes he feels he wants to fall to the right while walking. Otherwise he can walk well. He has blurred vision is better. Patient admits to having chronic back problems and also in the neck. He never had any back or neck surgery. Some of the work-up during this hospital visit consisted of: CT of the head is reported as no definitive evidence of intracranial hemorrhage, midline shift or mass effect. Slightly bubulus appearance along the superior sagittal sinus is favored to represent anatomic variation but very small subdural hematoma in this location cannot be excluded. Follow-up as clinically warranted. I personally reviewed that a CT of the head and there is no acute or subacute ischemia. Regarding the subdural that was questionable. CT cervical spine is reported as no evidence of acute cervical spine fracture or traumatic malalignment. Moderate cervical spondylosis. the ED team spoke with the stroke interventionalist (Dr. Will) reviewed that at images himself and was not impressed with any images and did not think any intervention or immediate treatment was needed. He recommended MRI of the brain per the ED team. Objective - Vital Signs Vital signs: Vital Signs Temp 98.8 F 08/07/23 14:51 Pulse 59 L 08/07/23 14:51 Resp 19 08/07/23 14:51 BP 124/81 08/07/23 14:51 Pulse Ox 97 08/07/23 14:51 FiO2 Intake & Output 08/06/23 08/07/23 08/07/23 18:59 06:59 18:59 Other: # Voids 4 4 - Exam Patient's mental status, speech and language functions are normal. Cranial nerves II through XII are normal. Visual castanon are full, face is symmetric, extraocular muscles intact, pupils, equal and round and reactive to light. Tongue protrudes midline. Shoulder shrug normal. On muscle strength testing, there is no pronator drift and the strength is normal in arms and legs distally and proximally. Sensory to touch is equal with no neglect. No ataxia for [id number] or [id number] testing. Deep tendon reflexes are symmetric, 1+ at the biceps, 1 brachioradialis, trace at the knees, 1 ankles and plantars are upgoing bilaterally. Patient walks fairly stable with normal base. - Labs CBC & Chem 7: 08/07/23 06:05 08/07/23 06:05 Labs: Abnormal Lab Results - Last 24 Hours (Table) 08/06/23 08/06/23 08/07/23 Range/Units 16:48 21:49 11:53 POC Glucose (mg/dL) 186 H 115 H 140 H (70-110) mg/dL 08/07/23 Range/Units 16:31 POC Glucose (mg/dL) 141 H (70-110) mg/dL Assessment and Plan Assessment: This is a 63-year-old gentleman who presents because of dizziness with transient right lower extremity weakness, and as a results fell down the stairs and felt he had a brief loss of consciousness that was very brief. Denies any history of stroke. He does have underlying chronic lower back pain. No history of seizures. Acute stroke/subdural hematoma ruled out. TIA appears less likely, although in the differential. Transient right leg weakness and dizziness, likely due to severe cervical spinal stenosis. Chronic back pain, likely due to lumbar radiculopathy Brief syncopal episode likely due to fall DM Tobacco use Plan: MRI of the brain revealed mild periventricular white matter ischemic type changes. I personally reviewed MRI agree with the findings. No acute process. CTA head and neck revealed no flow-limiting stenosis bilateral carotid bifurcations. Normal [place]well of [place]. EEG was normal awake and drowsy. No focal, lateralized or epileptiform activity was seen. No indication for antiepileptic medication. 2D echo revealed normal left ventricular EF 60 to 65%. Mildly increased left ventricular diastolic volume. No obvious regional wall motion abnormalities. Left atrium is mildly increased in volume. Negative bubble study. MRI cervical spine revealed moderate to severe degenerative changes in the cervical spine with severe spinal canal stenosis at C4-C5 and C5-C6. Cord signal is maintained. Moderate degeneration changes in these levels with severe neural foraminal stenosis at C4-C5 and C5-C6 bilaterally with moderate to severe right and moderate left C6-C7. I personally reviewed MRI and agree with the findings. Also reviewed MRI films with patient on the computer. MRI of the lumbar spine revealed degeneration changes in the lumbar spine with multilevel neural foraminal stenosis worse at L5-S1 with severe right and moderate left, moderate bilateral L4-L5 and moderate to severe bilateral L3-L4. No significant spinal canal stenosis. I personally reviewed MRI agree with the findings. Consult orthopedic spine for severe cervical spinal stenosis. Patient has history of diabetes with hemoglobin A1c 8.2. Suggest optimize control of diabetes. Recommend starting aspirin 81 mg daily, if no medical contraindications. B12 580, folate 11.70, both normal. Consulted PT and OT Cardiac monitoring
[2023-08-08 11:31] LABS: Glucose,Whole Blood 134 mg/dL (70-110)
[2023-08-08] MEDS: methylPREDNISolone SOD SUCCI 40 MG/ML 1 ML VIAL IV STA (12:47)
--- NOTE | 2023-08-08 15:54 | P.PN ---
Subjective Progress Note Date: 08/08/23 Principal diagnosis: cervical spondylosis; cervical stenosis; myelopathy; lumbar neural foraminal stenosis; right lower extremity radiculopathy patient was seen at bedside this morning sitting in chair with present during encounter. Patient states he has been doing a little better in regards to the pain in the right lower extremity. Patient says he is hoping to go home today. Patient denies any other changes at this time. Patient denies chest pain, fever, shortness of breath, nausea, vomiting, change in vision, loss of bowel/bladder control. Objective - Vital Signs Vital signs: Vital Signs Temp 97.9 F 08/08/23 07:57 Pulse 86 08/08/23 07:57 Resp 17 08/08/23 07:57 BP 138/84 08/08/23 07:57 Pulse Ox 94 L 08/08/23 07:57 FiO2 Intake & Output 08/07/23 08/08/23 08/08/23 18:59 06:59 18:59 Intake Total 118 Balance 118 Intake: Oral 118 Other: Voiding Method Toilet Toilet # Voids 3 - Exam inspection: Negative for any open fractures, significant erythema/ecchymosis/open wounds. Sensation: Equal, symmetric, bilaterally intact at the upper extremities and left lower extremity exam. Sensation diminished along the L4-5 dermatome of the right lower extremity. Palpation: Some generalized tenderness to patient over the lower cervical spine posteriorly. Fair amount of TTP throughout the lumbar spine midline and in the paravertebral regions. Moderate tenderness to palpation in the bilateral SI joints. nontender to palpation throughout rest of exam Range of motion: Limited range of motion in the right upper extremity secondary to injury to the right shoulder chronic rotator cuff tear. Full range of motion throughout the left upper extremity on exam. Full range of motion throughout the left lower extremity exam. Limited range of motion of the right hip and flexion/extension secondary to referred pain in the low back. motor: 3+/5 in right shoulder on exam. 4-/5 in resisted right elbow flexion/extension. 5/5 in right wrist. 5/5 in all major motor groups in left upper extremity on exam. 4+/5 in all major motor groups and left lower extremity and right lower extremity exam. Neurovascular: Radial pulses intact, 2+ bilaterally. Cap refill under 3 seconds in digits of upper extremities. Special tests: Negative clonus. Negative Homans. Positive Huy on the right upper extremity. Negative Huy left upper extremity. - Labs CBC & Chem 7: 08/07/23 06:05 08/07/23 06:05 Labs: Abnormal Lab Results - Last 24 Hours (Table) 08/07/23 08/07/23 08/08/23 Range/Units 16:31 20:06 05:59 POC Glucose (mg/dL) 141 H 148 H 120 H (70-110) mg/dL 08/08/23 Range/Units 11:28 POC Glucose (mg/dL) 134 H (70-110) mg/dL Assessment and Plan Assessment: 1. cervical spondylosis; cervical stenosis; myelopathy; lumbar neural foraminal stenosis; right lower extremity radiculopathy Plan: 1. cervical spondylosis; cervical stenosis; myelopathy; lumbar neural foraminal stenosis; right lower extremity radiculopathy - MRI of the cervical spine does reveal moderate to severe central canal stenosis from C4-C5 and C5 to C6. Negative for any spondylolisthesis in the cervical spine. MRI of the lumbar spine does reveal neuroforaminal stenosis that is moderate to severe from L3 to L4, L4 to L5 and L5-S1. Negative for any compression fractures. I did review the findings of the imaging with my attending, Dr. Vail. At this time we're recommending conservative measures with the use of IV steroids. At this time we are not recommending any emergent surgical intervention. We do recommend patient to follow-up within the week in the outpatient setting with Dr. Vail for continued evaluation. Patient may weight-bear as tolerated independently or with walker as needed. Pain medication as needed. Stable from ortho standpoint for discharge. 2. Appreciate medical and neurology management 3. Pain management - oxycodone 4. GI prophylaxis - Pepcid; MiraLAX 5. DVT prophylaxis Recs 6. PT/OT - weightbearing as tolerated independently or with walker as needed 7. Encourage incentive spirometer use Time with Patient: Less than 30
--- NOTE | 2023-08-10 06:48 | P.DS ---
Providers Date of admission: 08/04/23 18:18 Expected date of discharge: 08/08/23 Attending physician: Becca Wong Consults: 08/04/23 18:12 Consult Physician Urgent Consulting Provider: Ozzie Bolden Consult Reason/Comments: Head injury, abnormal brain CT Do you want consulting provider notified?: Already Contacted Primary care physician: Christopher Guerra Hospital Course: Final diagnosis Fall likely due to transient episode of dizziness, ruled out CVA, possible syncope Right shoulder pain secondary to fall along with history of rotator cuff tear on the right Headaches history History of chronic back pain Significant cervical stenosis with degenerative joint disease noted on MRI History of diabetes mellitus History of DVT and PE History of osteoarthritis Continued ongoing nicotine use Occasional THC use Obesity with a BMI of 33.2 GI prophylaxis DVT prophylaxis Full code Discharge disposition Patient is being discharged in a stable condition with guarded prognosis to home. Patient will follow-up with Dr. Guerra in the outpatient setting upon discharge. Patient is to continue with Medrol Dosepak and outpatient follow-up with neurology as well as pain management and orthopedics as scheduled. Total time taken is greater than 35 minutes. Hospital course This is a 63-year-old male who was recently admitted with fall with syncope and head injury being closely monitored. Patient underwent CT brain which initially was concerning for possible hematoma although MRI is negative and CVA ruled out. Patient underwent extensive neurological workup including cervical MRI showing significant cervical stenosis. Patient evaluated by Orthopedics and recommending conservative measures for now and outpatient follow-up. [facility] as well. Patient follows with pain management Dr. Alex and will need outpatient follow-up. Patient has continued right shoulder pain and imagings were negative. Patient reports chronic history of rotator cuff repair. Patient has been cleared by consultations and will be discharged home today. Currently no reports of chest pain, shortness of breath, or palpitations. Patient is afebrile. No reports of nausea or vomiting and patient is tolerating diet. Patient will be discharged home today. Physical exam: Gen: This is a 63-year-old male who is awake, alert and oriented x 3, well- developed, well-nourished, obese HEENT: Head is atraumatic, normocephalic. Pupils equal, round. Sclerae is anicteric. NECK: Supple. No JVD. No lymphadenopathy. No thyromegaly. LUNGS: Clear to auscultation. No wheezes or rhonchi. No intercostal retractions. HEART: Regular rate and rhythm. No murmur. ABDOMEN: Soft. Bowel sounds are present. No masses. No tenderness. EXTREMITIES: No pedal edema. No calf tenderness. Right shoulder pain on palpation NEUROLOGICAL: Patient is awake, alert and oriented x3. Cranial nerves 2 through 12 are grossly intact. Please refer to medication reconciliation sheet for a list of medications. The impression and plan of care has been dictated by Ching Hess, Nurse Practitioner as directed. Dr. Lenore MD I have performed a history and examination and MDM of this patient, discussed the same with the dictator, and agree with the dictator's assessment and plan as written ,documented as a scribe. Based on total visit time, I have performed more than 50% of the visit. Patient Condition at Discharge: Stable Plan - Discharge Summary New Discharge Prescriptions: New methylPREDNISolone Dose Pack [Medrol Dose Pack] 4 mg PO DIRECTED #21 tab Cephalexin [Keflex] 500 mg PO TID 5 Days #15 cap polyethylene glycoL 3350 [Miralax] 17 gm PO DAILY packet Acetaminophen Tab [Tylenol] 650 mg PO Q6HR PRN tab PRN Reason: Mild Pain Or Fever > 100.5 Meloxicam [Mobic] 15 mg PO DAILY #30 tab Continue Ibuprofen [Motrin] 800 mg PO BID PRN PRN Reason: Pain Dulaglutide [Trulicity] 0.75 mg SQ SA oxyCODONE-APAP 5-325MG [Percocet 5-325 mg] 1 tab PO TID Discharge Medication List Ibuprofen [Motrin] 800 mg PO BID PRN 03/27/22 [History] Dulaglutide [Trulicity] 0.75 mg SQ SA 08/04/23 [History] oxyCODONE-APAP 5-325MG [Percocet 5-325 mg] 1 tab PO TID 08/04/23 [History] Acetaminophen Tab [Tylenol] 650 mg PO Q6HR PRN tab 08/08/23 [Rx] Cephalexin [Keflex] 500 mg PO TID 5 Days #15 cap 08/08/23 [Rx] Meloxicam [Mobic] 15 mg PO DAILY #30 tab 08/08/23 [Rx] methylPREDNISolone Dose Pack [Medrol Dose Pack] 4 mg PO DIRECTED #21 tab 08/08/23 [Rx] polyethylene glycoL 3350 [Miralax] 17 gm PO DAILY packet 08/08/23 [Rx] Follow up Appointment(s)/Referral(s): Christopher Guerra MD [Primary Care Provider] - 08/15/23 8:40 am Jose Goldberg MD [Medical Doctor] - 1 Week (Office will contact you to schedule an appt ) Mayur Vail DO [Doctor of Osteopathic Medicine] - 08/13/23 10:30 am Yuly Lee [REFERRING] - 1 Week (Office not answering, may be a wrong number. Try calling the number you already have to make an appt with Dr. Lee.) Patient Instructions/Handouts: Head Injury (DC) Activity/Diet/Wound Care/Special Instructions: Activity limited until follow-up Follow-up with neurology outpatient Follow-up with pain management outpatient [facility] Continue with steroid taper Continue to monitor blood sugars and keep a diary for primary care follow-up Discharge Disposition: HOME SELF-CARE
--- NOTE | 2023-08-10 21:50 | CDI ---
Documentation Clarification Form Date: 08/10/2023 09:40:01 PM From: Azucena Jordan Phone: Admit Date: 08/04/2023 06:18:00 PM Patient Name: Gigi Johnson Visit Number: [id number] Discharge Date: 08/08/2023 03:16:00 PM ATTENTION: The Clinical Documentation Specialists (CDI) and [facility] Coding Staff appreciate your assistance in clarifying documentation. Please respond to the clarification below the line at the bottom and electronically sign. The CDI & [facility] Coding staff will review the response and follow-up if needed. Please note: Queries are made part of the Legal Health Record. If you have any questions, please contact the author of this message via ITS. Dr. Michael Grover Diabetes is documented per notes. Additional specificity regarding the diabetes diagnosis is requested. History/Risk Factors: 63yo M, fallw episode ofdizziness,Hx Rt rotator cuff tear, Hx MARIA, CBP, cervicalstenosiswithDJD, DMII, History DVT and PE, OA & effusion carli knee, smoker, occTHC use, obesity Clinical Indicators: Glucose: 08/03 174 4/ 123- 186 4/2 115-186 4/3 120-141 A1C of 8.2 Treatment: Suggest optimize control ofdiabetes. Home Meds: Dulaglutide[Trulicity] 0.75 mg SQ SA Please clarify the type of diabetes, if known: [ x ] Diabetes Type 2 with hyperglycemia [ ] Other, please specify [ ] Unable to Determine (Template Last Revised: July 2020) MTDD
== END 2023-08-08 15:16 | disposition home or self-care (01) | DRG 149 ==
LOC: EC 13:29 → 4SSUR 18:18
PROVIDERS: ADMIT Hospitalist; ATTEND Hospitalist
DX: R42 Dizziness and giddiness (principal); M47.12 Other spondylosis with myelopathy, cervical region; I11.9 Hypertensive heart disease without heart failure; E11.65 Type 2 diabetes mellitus with hyperglycemia; Z68.33 Body mass index [BMI] 33.0-33.9, adult; E66.9 Obesity, unspecified; M75.101 Unspecified rotator cuff tear or rupture of right shoulder, not specified as traumatic; M54.17 Radiculopathy, lumbosacral region; M54.16 Radiculopathy, lumbar region; R55 Syncope and collapse; F17.210 Nicotine dependence, cigarettes, uncomplicated; M25.462 Effusion, left knee; M25.461 Effusion, right knee; M17.0 Bilateral primary osteoarthritis of knee; G89.29 Other chronic pain; R51.9 Headache, unspecified; M48.02 Spinal stenosis, cervical region; W10.9XXA Fall (on) (from) unspecified stairs and steps, initial encounter; Y93.01 Activity, walking, marching and hiking; Y92.008 Other place in unspecified non-institutional (private) residence as the place of occurrence of the external cause; Z86.711 Personal history of pulmonary embolism; Z86.718 Personal history of other venous thrombosis and embolism; Z79.85 Long-term (current) use of injectable non-insulin antidiabetic drugs; Z79.891 Long term (current) use of opiate analgesic; Z85.46 Personal history of malignant neoplasm of prostate
CPT/HCPCS: 36415; 70450; 70496; 70498; 70551; 71046; 72125; 72131; 72141; 72148; 80048; 80053; 80061; 82607; 82746; 83036; 83735; 83880; 84484; 85025; 85610; 85730; 93005; 93306; 95816; 96361; 96374; 96375; 96376; 99285

== ENCOUNTER → 2024-06-30 | Outpatient (CLI) | payer MEDICARE | END | disposition home or self-care (01) | LOC: LABWHC1 11:46 | PROVIDERS: ATTEND Urology | DX: C61 Malignant neoplasm of prostate (principal) | CPT/HCPCS: 36415; 84153 ==

== ENCOUNTER → 2024-09-11 | Outpatient (CLI) | payer MEDICARE ==
--- NOTE | 2024-09-12 10:50 | MR ---
EXAMINATION TYPE: MR cervical spine wo con DATE OF EXAM: 09/11/2024 6:30 PM COMPARISON: 08/06/2023 CLINICAL INDICATION: Male, 64 years old with history of M50.30 DEGENERATIVE DISC DISEASE, M48.02, Nec k pain, DDD TECHNIQUE: Multiplanar multiecho imaging on a 3.0 Jeny magnet is performed through the cervical spin e. IV Contrast: mL (None, if empty) FINDINGS: The craniovertebral junction is normal. There is a grade 1 spondylolisthesis of C2 anterior ly on C3. There is straightening of the cervical spine through the remaining portions. Diffuse loss o f disc height and disc desiccation is present. C7-T1: No focal disc herniation or significant disc bulge is evident. No spinal canal stenosis or n eural foraminal stenosis is present. C6-7: Uncovertebral joint hypertrophy is contributing to bilateral foraminal stenosis. Mild disc bulg e is present within the intrathecal sac contact. No cord contact or spinal canal stenosis is present. C5-6: Broad-based disc bulge is moderate anterior thecal sac compression. Cord contact and cord tom ening is present. No AP spinal canal stenosis present. There is severe bilateral foraminal stenosis f rom uncovertebral joint V C4-5: Broad-based disc bulge is moderate anterior thecal sac compression. This may have cord contact. Cord deformity is not identified. Severe left foraminal stenosis from uncovertebral joint hypertroph y is present. Some right foraminal stenosis also present.. C3-4: Disc bulge is present with anterior thecal sac contact. No cord contact or spinal canal stenosi s. Bilateral foraminal stenosis present. C2-3: No focal disc herniation or significant disc bulge is evident. No spinal canal stenosis or kellie ral foraminal stenosis is present. The spondylolisthesis at this level may be developing from prior e xam. IMPRESSION: 1. Disc bulging with anterior cord flattening C5-6 2. Additional levels of disc bulging without cord contact. This does come in close approximation to t he spinal cord at C4-5. 3. Multilevel severe foraminal stenosis. 4. Spondylolisthesis noted on this examination of C2 anteriorly on C3 not identified previously. [facility], , 09/12/2024 10:48 AM
== END | disposition home or self-care (01) ==
LOC: RADMRIMAIN 17:43
PROVIDERS: ATTEND Psychiatry & Neurology Neurology
DX: M48.02 Spinal stenosis, cervical region (principal); M50.322 Other cervical disc degeneration at C5-C6 level; M43.12 Spondylolisthesis, cervical region
CPT/HCPCS: 72141

== ENCOUNTER → 2024-10-31 | Outpatient (CLI) | payer MEDICARE ==
[2024-10-31 13:12] LABS: INR 0.9 (<1.2); Partial Thromboplastin Time 23.9 sec (22.0-30.0); Prothrombin Time 10.1 sec (10.0-12.5)
[2024-10-31 15:38] LABS: HCT 43.2 % (39.6-50.0); HGB 14.5 g/dL (13.0-17.0); MCH 31.3 pg (27.0-32.0); MCHC 33.6 g/dL (32.0-37.0); MCV 93.1 FL (80.0-97.0); Mean Platelet Volume 9.1 FL (9.5-12.2); NRBC Per 100 WBC 0 X 10*3/uL (0.00-0.01); Platelet Count 278 X 10*3/uL (140-440); RBC 4.64 X 10*6/uL (4.40-5.60); RDW 12.8 % (11.5-14.5); WBC 10.02 X 10*3/uL (4.50-10.00)
[2024-10-31 15:58] LABS: ALT 18 U/L (10-49); AST 17 U/L (14-35); Albumin 4.4 g/dL (3.8-4.9); Alkaline Phosphatase 85 U/L (41-126); BUN/Creat Ratio 28.38 Ratio (12.00-20.00); Blood Urea Nitrogen 22.7 mg/dL (9.0-27.0); Carbon Dioxide 24.1 mmol/L (21.6-31.8); Chloride 108 mmol/L (96-109); Globulin 2.2 g/dL (1.6-3.3); Glucose 123 mg/dL (70-110); Potassium 4.6 mmol/L (3.5-5.5); Sodium 141 mmol/L (135-145); Total Bilirubin 0.4 mg/dL (0.3-1.2); Total Protein 6.6 g/dL (6.2-8.2)
== END | disposition home or self-care (01) ==
LOC: LABPAT 11:33
PROVIDERS: ATTEND Orthopaedic Surgery
DX: Z01.812 Encounter for preprocedural laboratory examination (principal); M16.11 Unilateral primary osteoarthritis, right hip; Z22.322 Carrier or suspected carrier of Methicillin resistant Staphylococcus aureus
CPT/HCPCS: 80053; 85027; 85610; 85730; 86850; 86900; 86901; 87070

== ENCOUNTER 2024-11-10 07:15 | Day surgery (SDC) | payer MEDICARE ==
[2024-11-06 09:44] VITALS: BMI 31.8
[~2024-11-10 07:15] MED LIST changes: +ACETAMINOPHEN TAB 500 MG TAB PO PRN; -LACTATED RINGERS 1,000 ML IV SCH; +TRANEXAMIC 1,000 MG/100ML-NACL 1,000 MG in SALINE 1 100ML.BAG IVPB PRN
[2024-11-10 08:00] LABS: Glucose,Whole Blood 106 mg/dL (70-110)
[2024-11-10] MEDS: IV FLUID CONTINUATION 1,000 ML IV ONE (08:03)
[2024-11-10] MEDS: VANCOMYCIN 1,500 MG in SODIUM CHLORIDE 0.9% 500 ML 500 ML IVPB PRN (08:08)
[2024-11-10] MEDS: LACTATED RINGERS 1,000 ML IV SCH (08:08)
[2024-11-10] MEDS: MELOXICAM 7.5 MG TAB PO PRN (08:20)
[2024-11-10] MEDS: ONDANSETRON 4 MG/2 ML VIAL IVP ONE (08:21)
[2024-11-10] MEDS: DEXAMETHASONE SOD PHOSPHATE 4 MG/ML 1 ML VIAL IV ONE (08:21)
[2024-11-10] MEDS: GABAPENTIN 300 MG CAP PO PRN (08:21)
[2024-11-10] MEDS: MIDAZOLAM 2 MG/2 ML VIAL IV PRN (08:32)
[2024-11-10] MEDS: fentaNYL (PF) 50 MCG/ML 2 ML AMP IVP PRN (08:38)
[2024-11-10] MEDS ORDERED: TRANEXAMIC 1,000 MG/100ML-NACL PREMIX BAG ONE (08:56)
[2024-11-10] MEDS ORDERED: KETAMINE HCL IN 0.9 % NACL 50 MG/5 ML SYRINGE ONE (08:56)
[2024-11-10] MEDS ORDERED: ROPIVACAINE 5 MG/ML 30 ML VIAL ONE (08:56)
[2024-11-10] MEDS ORDERED: MIDAZOLAM 2 MG/2 ML VIAL ONE (08:56)
[2024-11-10] MEDS ORDERED: PHENYLEPHRINE-0.9% NACL SYG 1,000 MCG/10 ML SYRINGE ONE (08:56)
[2024-11-10] MEDS ORDERED: PROPOFOL 10 MG/ML 20 ML VIAL IV ONE (08:56)
[2024-11-10] MEDS ORDERED: LIDOCAINE 1% INJ 10MG/ML (20 ML MDV) ONE (08:56)
[2024-11-10] MEDS ORDERED: DEXAMETHASONE SOD PHOSPHATE 4 MG/ML 1 ML VIAL ONE (08:56)
[2024-11-10] MEDS ORDERED: ePHEDrine 50 MG/ML 1 ML VIAL ONE (08:56)
[2024-11-10] MEDS: ceFAZolin 1,000 MG in SODIUM CHLORIDE 0.9% 1,000 ML IRRIGATION ONE (08:58)
[2024-11-10] MEDS: ROPIVACAINE 5 MG/ML 30 ML VIAL MISCELLANE ONE ×2 (09:25→09:59)
[2024-11-10] MEDS: LACTATED RINGERS 1,000 ML IV ONE (09:59)
--- NOTE | 2024-11-10 10:03 | P.OP ---
Date of Procedure: 11/10/24 Preoperative Diagnosis: Severe osteoarthritis right hip Postoperative Diagnosis: Severe osteoarthritis right hip Procedure(s) Performed: Right total hip arthroplasty with a direct anterior approach Implants: [employer] Polarstem standard size 4 with a collar [employer] R3, 3 hole hemispherical acetabular shell, 54 mm [employer] Reflection 6.5 mm cancellus screw, 25 mm 2 [employer] R3, XLPE 20 acetabular liner [employer] Oxinium femoral head 36 mm, +4 All components were press-fit. The articulation is Oxinium on polyethylene. Anesthesia: spinal Surgeon: Sherif Francis Business Loan Processor #1: Nelson Hartmann Estimated Blood Loss (ml): 250 Pathology: none sent Condition: stable Disposition: PACU Indications for Procedure: After failure of conservative treatment we discussed the surgical and nonsurgical treatment options at length. Patient wishes to proceed with a total hip arthroplasty with a direct anterior approach. Complications specific to this procedure were discussed at length, including but not limited to infection, leg length discrepancy, dislocation, nerve injury, and fracture. Covid-19 was also discussed at length with the patient, and they are aware of the current policies and procedures. The patient was given the option of delaying surgery, but they elect to proceed knowing these risks. Patient is aware of all these complications and informed consent was obtained Operative Findings: The operative findings are consistent with severe osteoarthritis of the right hip Description of Procedure: The patient was seen and evaluated in the preoperative area and the consent was reviewed. The operative site was marked with a skin marker. The patient verified the procedure and operative site. A ANTONIA block was placed by anesthesia in the preoperative area. The patient was then brought to the operating room and given preoperative antibiotics intravenously. 1 g of Tranexamic acid was also given intravenously. A spinal anesthetic was administered by the anesthesia department. The patient was then placed on the [place] table with the bony prominences well-padded. The hip area was then prepped with a ChloraPrep solution and draped in the usual sterile fashion. A universal timeout was then performed, which confirmed the patient's name, surgical site, ALLERGIES, and procedure being performed on the consent. Next the incision site was located at 1 cm distal and 4 cm lateral to the anterior superior iliac spine. The skin and subcutaneous tissues were sharply incised. Incision was carefully dissected down to the fascia overlying the tensor fascia rayna muscle. This fascia was then incised in line with the muscle fibers. Care was taken to stay laterally in order to avoid injuring the lateral femoral cutaneous nerve. Next, using blunt finger dissection, the tensor fascia rayna muscle was dissected off its investing fascia. The muscle was then carefully retracted laterally with a cobra retractor over the lateral neck of the femur. Next, the circumflex vessels were identified and cauterized using the Aquamantis device. The anterior hip capsule was then exposed. The capsule was then opened and an inverted T fashion. The retractors were then placed intracapsularly. The retractors were maintained intracapsular throughout the procedure. The proximal femur was then visualized. Fluoroscopic x-rays were then taken in order to evaluate the preoperative leg lengths. A small amount of traction was placed on the leg. The femoral neck was then osteotomized at the appropriate level above the lesser trochanter. A small wedge of bone was then removed from the remaining femoral head. Next, using a corkscrew the femoral head was removed from the acetabulum. On gross visual inspection, the femoral head had complete loss of articular cartilage and multiple periarticular osteophytes. The femoral head was then measured. Attention was then turned to the acetabulum. The acetabulum was exposed and any remaining labrum was excised. Sequential reaming of the acetabulum was performed using fluoroscopic guidance until there was a good bed of bleeding cancellus bone. When the appropriate size was reach ed, a trial was then placed. The position and fit of the trial was checked with fluoroscopy. The trial was then removed. Then, using fluoroscopic guidance, the final implant was impacted at 20 of anteversion and 40 of abduction, and fully seated in the acetabulum. 2 screws were then placed in the acetabulum. Again fluoroscopy was used to check position of the screws. Next, the liner was then impacted, with a 20 elevated liner located in the anterior superior quadrant. Component locking was confirmed. Attention was then directed to the femur. With the aid of the [place] table, the femur was externally rotated to approximately 130, extended, and adducted under the opposite leg. A side hook was then placed under the proximal femur, and the side hook elevator was used to elevate the proximal femur while releasing the capsule. Retractors were then placed. A capsular release was performed, as well as a release of the conjoined tendon, which afforded excellent visualization of the proximal femur. Next, a box osteotome was used to lateralize the proximal femur. A outsole handler was then used to locate the femoral canal. Sequential broaching was then performed with appropriate size which afforded excellent fixation in the proximal femur. A trial was then placed with appropriate head and neck, and the hip was gently reduced with the aid of the [place] table. Fluoroscopy was then used to check position of the components, as well as to evaluate the leg lengths and offset. The leg lengths and offset were measured as closely as possible to ensure stability of the hip. The hip was then gently dislocated and the trials were then removed. Final implants were then impacted and the hip was again reduced. Final fluoroscopic x-rays confirmed that the components were in anatomic position. The leg lengths and offset were measured and were found to coincide with the trial measurements. The hip was also taken through range of motion, and found to be stable. The hip was then copiously irrigated with antibiotic solution with pulsatile lavage. The hip was then irrigated with Irrisept solution. The soft tissues were then injected with a ropivacaine solution. A second dose of 1 g of Tranexamic acid was also given intravenously. The fascia was then closed with 2-0 strata fix suture. The subcutaneous tissue was closed with 3-0 Vicryl. The subcuticular tissue was closed with 3-0 strata fix suture. The skin was then closed with Exofin skin glue. After the glue and dried, and Optifoam silver impregnated dressing was applied. The patient was then transferred to the recovery room in stable condition. The grooming assistant BRYAN Hanks was required due to the complexity of surgery, and the need for skilled assistant project manager for positioning, draping, exposure, retraction, and closure of the wound.
--- NOTE | 2024-11-10 10:29 | XR ---
EXAMINATION TYPE: XR Hip Limited RT, FL guidance operating room Intraoperative/procedural fluoroscopi c services were provided. CLINICAL INDICATION:Male, 64 years old with history of Rt Hip-Ant; , PHH FINDINGS: Post surgical changes of right total hip arthroplasty. Hardware appears intact with appropriate align ment. No radiographic evidence for complication. Total fluoroscopy time is 41.7 seconds. DAP: 2.2031 Gycm2 Please see the operative/procedural note for further details. [facility], , 11/10/2024 10:27 AM
[2024-11-10] MEDS ORDERED: HYDROmorphone 0.5 MG/0.5 ML SYRINGE IVP PRN ×2 (10:30)
[2024-11-10] MEDS ORDERED: HYDROcodone/APAP 5-325MG 1 EACH TAB PO PRN (10:30)
[2024-11-10] MEDS ORDERED: MAGNESIUM HYDROXIDE 2,400 MG/30 ML CUP PO PRN (10:30)
[2024-11-10] MEDS ORDERED: NALOXONE 0.4 MG/ML 1 ML VIAL IV PRN ×2 (10:30→10:39)
[2024-11-10] MEDS ORDERED: ACETAMINOPHEN TAB 325 MG TAB PO PRN (10:30)
[2024-11-10 11:02] LABS: Glucose,Whole Blood 136 mg/dL (70-110)
--- NOTE | 2024-11-10 11:15 | XR ---
EXAMINATION TYPE: XR Hip Limited RT DATE OF EXAM: 11/10/2024 11:08 AM INDICATION: Patient age:Male; 64 years old; Reason for study: Status post hip surgery, assess surgical alignment; PHH. pain COMPARISON: Right hip fluoroscopic images of the same date TECHNIQUE: The right hip was examined in single frontal projection. FINDINGS: Post surgical changes from total right hip arthroplasty. Hardware appears intact with appro priate alignment. There is expected surrounding soft tissue gas and edema. No acute fracture or dislo cation. IMPRESSION: Post surgical changes from total right hip arthroplasty. Hardware appears intact with appropriate ali gnment. [facility], , 11/10/2024 11:12 AM
[2024-11-10] MEDS: GLYCOPYRROLATE 0.2 MG/ML 2 ML VIAL IVP STA (11:38)
[2024-11-10] MEDS: HYDROmorphone 0.5 MG/0.5 ML SYRINGE IVP PRN ×2 (14:30→20:54)
[2024-11-10] MEDS: HYDROcodone/APAP 10-325MG 1 EACH TAB PO PRN (16:09)
[2024-11-10] MEDS: SODIUM CHLORIDE 0.9% 1,000 ML IV SCH (16:21)
[2024-11-10] MEDS: MEPERIDINE 50 MG/ML SYRINGE IVP STA (17:19)
[2024-11-10] MEDS: SENNOSIDES-DOCUSATE SODIUM 1 EACH TAB PO SCH (20:55)
[2024-11-10] MEDS: VANCOMYCIN 1,500 MG in SODIUM CHLORIDE 0.9% 500 ML 500 ML IVPB ONE (20:56)
[2024-11-10] MEDS ORDERED: ASPIRIN 81 MG PO SCH (21:00)
[2024-11-10 21:13] LABS: Glucose,Whole Blood 229 mg/dL (70-110)
[2024-11-11] MEDS ORDERED: DEXTROSE 50% SYRINGE 50 ML IVP PRN ×2 (03:20)
--- NOTE | 2024-11-11 06:30 | P.ANPRN ---
Procedure Note - Anesthesia - Nerve Block Performed Right [place] Single Time Out Performed: Yes Date of Procedure: 11/10/24 Procedure Start Time: 08:31 Procedure Stop Time: 08:35 Location of Patient: PreOp Indication: Acute Post-Operative Pain, Requested by Surgeon Sedation Type: Sedate with meaningful contact maintained Preparation: Sterile Prep, Sterile Dressing Position: Supine Needle Types: Pajunk Ultrasound used to visualize needle placement: Yes Ultrasound used to observe medication spread: Yes Blood Aspirated: No Pain Paresthesia on Injection Noted: No Resistance on Injection: Normal Image Stored and Saved: Yes Events: Uneventful and Well Tolerated (Ropivacaine 0.5% 20 cc plus dexamethasone 4 mg)
[2024-11-11] MEDS: INSULIN LISPRO (HumaLOG) 100 UNIT/ML 10 mL VL SQ SCH (06:31)
[2024-11-11 06:38] LABS: Glucose,Whole Blood 133 mg/dL (70-110)
[2024-11-11] MEDS: APIXABAN 2.5 MG TABLET PO SCH (08:10)
[2024-11-11] MEDS: FAMOTIDINE 20 MG TAB PO SCH (08:10)
[2024-11-11] MEDS: oxyCODONE-APAP 5-325MG 1 EACH TAB PO PRN (08:12)
[2024-11-11 08:30] LABS: Basophils # (A) 0.02 X 10*3/uL (0.00-0.10); Basophils % (A) 0.2 %; Eosinophils # (A) 0.02 X 10*3/uL (0.04-0.35); Eosinophils % (A) 0.2 %; HCT 37.2 % (39.6-50.0); HGB 12.4 g/dL (13.0-17.0); Immature Grans, Automated 0.40 %; Lymphocytes # (A) 2.16 X 10*3/uL (0.90-5.00); Lymphocytes % (A) 17.6 %; MCH 31.2 pg (27.0-32.0); MCHC 33.3 g/dL (32.0-37.0); MCV 93.5 FL (80.0-97.0); Monocytes # (A) 1.20 X 10*3/uL (0.20-1.00); Monocytes % (A) 9.8 %; NRBC Per 100 WBC 0 X 10*3/uL (0.00-0.01); Neutrophils # (A) 8.85 X 10*3/uL (1.80-7.70); Neutrophils % (A) 71.8 %; Platelet Count 230 X 10*3/uL (140-440); RBC 3.98 X 10*6/uL (4.40-5.60); RDW 12.5 % (11.5-14.5); WBC 12.30 X 10*3/uL (4.50-10.00)
--- NOTE | 2024-11-11 10:57 | P.DS ---
Providers Expected date of discharge: 11/11/24 Attending physician: Sherif Francis Consults: 11/10/24 10:30 Consult Physician Routine Consulting Provider: Becca Wong Consult Reason/Comments: Postoperative medical management Do you want consulting provider notified?: Yes Primary care physician: Christopher Guerra - Discharge Diagnosis(es) (1) Osteoarthritis of right hip Current Visit: Yes Status: Acute (2) S/P total hip arthroplasty Current Visit: Yes Status: Acute Hospital Course: This is a 64-year-old male with known history of degenerative arthritis of the right hip. The patient presented for evaluation as an outpatient. After discussion and consideration patient elects to proceed with total hip arthroplasty. The patient is seen preoperatively by Dr. Francis and medically cleared for surgery by their primary care physician. Patient is admitted to [facility] on 11/10/2024 for total hip arthroplasty. The procedure is performed without complication or sequelae. The patient is doing well postoperatively. Labs and vital signs are stable on day of discharge. On day of discharge patient's hip incision is healing well. There is minimal erythema. There is no drainage noted at this time. There is minimal soft tissue swelling to the hip and thigh. Patient has full foot and ankle motion without difficulty or pain. Calf is soft and nontender to palpation. Neurovascular status to the right lower extremity is intact. Patient is discharged home in good condition. Please see med rec for accurate list of home medications. Plan - Discharge Summary Discharge Rx Participant: Yes New Discharge Prescriptions: New Apixaban [Eliquis] 2.5 mg PO BID 30 Days #60 tab Magnesium Hydroxide [Milk of Magnesia] 2,400 mg PO DAILY PRN ml PRN Reason: Constipation Sennosides-Docusate Sodium [Senokot-S] 2 each PO HS PRN #30 tab PRN Reason: Constipation Famotidine [Pepcid] 20 mg PO DAILY 14 Days #14 tab Continue Dulaglutide [Trulicity] 1.5 mg SQ Q10D oxyCODONE-APAP 5-325MG [Percocet 5-325 mg] 1 tab PO QID Discontinued Meloxicam [Mobic] 15 mg PO DAILY #30 tab Discharge Medication List Dulaglutide [Trulicity] 1.5 mg SQ Q10D 08/04/23 [History] oxyCODONE-APAP 5-325MG [Percocet 5-325 mg] 1 tab PO QID 08/04/23 [History] Apixaban [Eliquis] 2.5 mg PO BID 30 Days #60 tab 11/10/24 [Rx] Famotidine [Pepcid] 20 mg PO DAILY 14 Days #14 tab 11/11/24 [Rx] Magnesium Hydroxide [Milk of Magnesia] 2,400 mg PO DAILY PRN ml 11/11/24 [Rx] Sennosides-Docusate Sodium [Senokot-S] 2 each PO HS PRN #30 tab 11/11/24 [Rx] Follow up Appointment(s)/Referral(s): Christopher Guerra MD [Primary Care Provider] - 11/19/24 9:20 am [facility] [[facility]STA[facility]] - 1-2 Days ([facility] will call you to schedule your in home physical therapy visits. ) Sherif Francis DO [Doctor of Osteopathic Medicine] - 11/26/24 1:30 pm (With Carmencita) Ambulatory/Diagnostic Orders: Complete Blood Count w/diff [LAB.AMB] Time Frame: 3 Days, Location: None Selected Activity/Diet/Wound Care/Special Instructions: Weightbearing as tolerated with walker. Leave dressing intact. Dressing may be removed by home care nurse or by patient in 7 days. Then change dressing twice daily until follow up. May shower with initial dressing intact and after removal. If dressing become saturated, please remove. Please take Eliquis twice daily for 30 days to prevent blood clots. Recommend use of compression stockings daily until follow up to help prevent swelling and blood clots. May remove at night before sleeping. Postop pain management per Dr. Goldberg. [facility] with [facility] 2 weeks and call with any questions or concerns, . Discharge Disposition: HOME WITH HOME HEALTH SERVICES
[2024-11-11 11:46] LABS: Glucose,Whole Blood 112 mg/dL (70-110)
[2024-11-11] MEDS: hydrOXYzine HCL 25 MG TAB PO PRN (12:19)
--- NOTE | 2024-11-11 12:19 | P.CONS ---
History of Present Illness - Reason for Consult Consult date: 11/11/24 Medical management, status post right hip arthroplasty - History of Present Illness This is a pleasant 64-year-old male who was recently admitted under orthopedic services and is status post right total hip arthroplasty. Patient follows with Dr. Guerra in the outpatient setting with a past medical history of prostate ca ncer, diabetes mellitus, previous DVT, osteoarthritis, pulmonary embolism, kidney stones, chronic back pain, continued nicotine use, occasional drinking, occasional marijuana use. Patient did undergo presurgical screening for orthopedics and is doing relatively well postop day 1. White count is mildly elevated at 12.3 with a hemoglobin of 12.4 and platelets are stable at 230. White blood count likely reactive as patient is afebrile with no reports of shortness of breath, burning or pain with urination or infectious source. Recommend outpatient follow-up with primary care provider and repeat labs in the outpatient setting. Patient is currently awaiting to work with physical therapy and doing relatively well and plan on going home today. Home medications reviewed and resumed as appropriate and patient is maintained on insulin sliding scale with Accu-Cheks AC and at bedtime. Recommend incentive spirometer use and bringing home and continuing to use in the outpatient setting at least 10 times every hour while awake. REVIEW OF SYSTEMS: CONSTITUTIONAL: No fever, no malaise, no fatigue. HEENT: No recent visual problems or hearing problems. Denied any sore throat. CARDIOVASCULAR: No chest pain, orthopnea, PND, no palpitations, no syncope. PULMONARY: No shortness of breath, no cough, no hemoptysis. GASTROINTESTINAL: No diarrhea, no nausea, no vomiting, no abdominal pain. NEUROLOGICAL: No headaches, no weakness, no numbness. HEMATOLOGICAL: Denies any bleeding or petechiae. GENITOURINARY: Denies any burning micturition, frequency, or urgency. MUSCULOSKELETAL/RHEUMATOLOGICAL: Reports of some mild right hip pain and slight numbness of the right thigh with tingling ENDOCRINE: Denies any polyuria or polydipsia. The rest of the 14-point review of systems is negative. PHYSICAL EXAMINATION: GENERAL: The patient is alert and oriented x3, not in any acute distress. Well developed, well nourished. Obese HEENT: Pupils are round and equally reacting to light. EOMI. No scleral icterus. No conjunctival pallor. Normocephalic, atraumatic. No pharyngeal erythema. No t hyromegaly. CARDIOVASCULAR: S1 and S2 muffled PULMONARY: Diminished breath sounds bilaterally otherwise chest is clear to auscultation, no wheezing or crackles. ABDOMEN: Soft, obese, nontender, nondistended, normoactive bowel sounds. No palpable organomegaly. MUSCULOSKELETAL: No joint swelling or deformity. EXTREMITIES: No cyanosis, clubbing, or pedal edema. Right hip surgical dressing is dry and intact, groin area is soft and palpable NEUROLOGICAL: Gross neurological examination did not reveal any focal deficits. SKIN: No rashes. Assessment: Status post right total hip arthroplasty History of previous DVT and PE Mild leukocytosis with a white count of 12.3, likely reactive as patient does not appear infectious at all Prostate cancer history Diabetes mellitus, type II History of kidney stones History of chronic back pain History of continued ongoing nicotine use Occasional alcohol use Occasional THC use Obesity with a BMI of 31.9 GI prophylaxis DVT prophylaxis Full code Plan: Patient was admitted under orthopedic services status post right total hip arthroplasty, postop day 1 doing relatively well Patient working with physical therapy and plans on going home Home medications reviewed and resumed as appropriate Encourage incentive spirometer use including taking home and using at least 10 times every hour while awake Continue with pain management and DVT prophylaxis per orthopedics. Patient is being started on Eliquis 2.5 mg twice daily. Patient reports he has been off this for over 9 years as he had a previous PE and DVT from a surgical complication and was hospitalized and bedridden for many days leading to blood clots. Patient unsure why he is only on 2.5 mg twice daily. Continue prophylaxis per orthopedics Encouraged elevating lower extremities while at rest Continue monitoring Accu-Cheks ACH S and will use sliding scale for now. Patient is maintained on [facility] outpatient Thank you kindly for this consultation. Will continue to follow with gaviota suh during hospitalization. Patient is medically stable and cleared for discharge once cleared by orthopedics The impression and plan of care has been dictated by Ching Hess, Nurse Practitioner as directed. Dr. Lenore MD I have performed a history and examination and MDM of this patient, discussed the same with the dictator, and agree with the dictator's assessment and plan as written ,documented as a scribe. Based on total visit time, I have performed more than 50% of the visit. Past Medical History Past Medical History: Cancer, Diabetes Mellitus, Deep Vein Thrombosis (DVT), Osteoarthritis (OA), Pneumonia, Prostate Disorder, Pulmonary Embolus (PE) Additional Past Medical History / Comment(s): PROSTATE CANCER - developed blood infection sepsis postop after prostate surgery - large blood clot post op "Lt. side of body". Hx. of kidney stones, chronic back pain, diverticulosis, Type II DM History of Any Multi-Drug Resistant Organisms: None Reported Year Discovered:: 10/31/24 MDRO Source:: nasal Past Surgical History: Appendectomy, Hernia Repair, Orthopedic Surgery, Prostate Surgery Additional Past Surgical History / Comment(s): 2015-robotic prostatectomy, ARTHROSCOPIC RIGHT KNEE, LEFT WRIST, LT ELBOW AND LEFT SHOULDER SURG., surgery to removed nodule from vocal cords, incisional hernia repair Past Anesthesia/Blood Transfusion Reactions: No Reported Reaction Smoking Status: Current some day smoker - Past Family History Mother Family Medical History: Diabetes Mellitus Medications and Allergies Home Medications Medication Instructions Recorded Confirmed Type Dulaglutide [Trulicity] 1.5 mg SQ Q10D 08/04/23 11/10/24 History oxyCODONE-APAP 5-325MG [Percocet 1 tab PO QID 08/04/23 11/10/24 History 5-325 mg] Apixaban [Eliquis] 2.5 mg PO BID 30 Days #60 tab 11/10/24 Rx Famotidine [Pepcid] 20 mg PO DAILY 14 Days #14 tab 11/11/24 Rx Magnesium Hydroxide [Milk of 2,400 mg PO DAILY PRN ml 11/11/24 Rx Magnesia] Sennosides-Docusate Sodium 2 each PO HS PRN #30 tab 11/11/24 Rx [Senokot-S] Allergies Allergy/AdvReac Type Severity Reaction Status Date / Time No Known Allergies Allergy Verified 11/06/24 09:04 Physical Exam Vitals: Vital Signs Temp Pulse Pulse Resp BP Pulse Ox 11/11/24 07:26 98.1 F 68 18 119/69 97 11/11/24 01:15 97.8 F 78 113/71 98 11/10/24 19:30 98.1 F 89 122/79 96 11/10/24 18:00 90 14 109/73 96 11/10/24 17:30 93 14 112/72 97 11/10/24 16:30 90 14 117/79 97 11/10/24 16:00 82 14 108/79 98 11/10/24 15:30 90 14 119/78 96 11/10/24 15:01 85 14 119/86 97 11/10/24 14:30 76 14 132/82 98 11/10/24 14:00 80 12 116/103 98 11/10/24 13:15 75 14 120/71 97 11/10/24 12:45 70 14 98/56 98 11/10/24 12:15 71 14 100/72 98 11/10/24 12:00 54 L 12 105/66 100 11/10/24 11:45 64 14 103/61 100 11/10/24 11:30 48 L 14 90/73 100 11/10/24 11:15 48 L 12 114/57 100 11/10/24 11:00 52 L 14 105/74 100 11/10/24 10:45 46 L 14 96/62 100 11/10/24 10:28 97.3 F L 63 14 96/64 97 Intake and Output 11/10/24 11/11/24 11/11/24 22:59 06:59 14:59 Output Total 800 Balance -800 Output: Urine 800 Other: Voiding Method Toilet Urinal # Voids 2 Weight 102.2 kg Results CBC & Chem 7: 11/11/24 03:45 Labs: Abnormal Lab Results - Last 24 Hours (Table) 11/10/24 11/10/24 11/11/24 Range/Units 11:01 21:12 03:45 WBC 12.30 H (4.50-10.00) X 10*3/uL RBC 3.98 L (4.40-5.60) X 10*6/uL Hgb 12.4 L (13.0-17.0) g/dL Hct 37.2 L (39.6-50.0) % MPV 9.4 L (9.5-12.2) FL Immature Gran # 0.05 H (0.00-0.04) X 10*3/uL Neutrophils # 8.85 H (1.80-7.70) X 10*3/uL Monocytes # 1.20 H (0.20-1.00) X 10*3/uL Eosinophils # 0.02 L (0.04-0.35) X 10*3/uL POC Glucose (mg/dL) 136 H 229 H (70-110) mg/dL 11/11/24 Range/Units 06:30 WBC (4.50-10.00) X 10*3/uL RBC (4.40-5.60) X 10*6/uL Hgb (13.0-17.0) g/dL Hct (39.6-50.0) % MPV (9.5-12.2) FL Immature Gran # (0.00-0.04) X 10*3/uL Neutrophils # (1.80-7.70) X 10*3/uL Monocytes # (0.20-1.00) X 10*3/uL Eosinophils # (0.04-0.35) X 10*3/uL POC Glucose (mg/dL) 133 H (70-110) mg/dL
[2024-11-11 16:17] LABS: Glucose,Whole Blood 109 mg/dL (70-110)
[2024-11-11 20:25] LABS: Glucose,Whole Blood 193 mg/dL (70-110)
[2024-11-12 06:18] LABS: Glucose,Whole Blood 147 mg/dL (70-110)
[2024-11-12 09:08] VITALS: BP 137/81; PULSE 92; RESP 18; TEMP 99.7
[2024-11-12] MEDS: CYCLOBENZAPRINE 10 MG TAB PO PRN (11:09)
--- NOTE | 2024-11-12 11:33 | XR ---
EXAMINATION TYPE: XR chest 1V portable DATE OF EXAM: 11/12/2024 11:20 AM COMPARISON: Chest radiographs from 08/04/2023 TECHNIQUE: XR chest 1V portable Portable AP radiograph of the chest. CLINICAL INDICATION:Male, 64 years old with history of shortness of breath; FINDINGS: Lungs/Pleura: There is no evidence of pleural effusion, focal consolidation, or pneumothorax. Pulmonary vascularity: Unremarkable. Heart/mediastinum: Cardiomediastinal silhouette is unremarkable. Musculoskeletal: No acute osseous pathology. IMPRESSION: No acute cardiopulmonary disease/process. [facility], , 11/12/2024 11:30 AM
[2024-11-12 12:01] LABS: Glucose,Whole Blood 141 mg/dL (70-110)
== END 2024-11-12 15:17 | disposition home health service (06) ==
LOC: OR 07:15 → 4SSUR 18:36 → OR 11-12 15:17
PROVIDERS: ATTEND Orthopaedic Surgery
DX: M16.11 Unilateral primary osteoarthritis, right hip (principal); M75.121 Complete rotator cuff tear or rupture of right shoulder, not specified as traumatic; M75.81 Other shoulder lesions, right shoulder; M19.011 Primary osteoarthritis, right shoulder; C61 Malignant neoplasm of prostate; D72.829 Elevated white blood cell count, unspecified; E11.9 Type 2 diabetes mellitus without complications; E66.9 Obesity, unspecified; F17.200 Nicotine dependence, unspecified, uncomplicated; Z86.718 Personal history of other venous thrombosis and embolism; Z87.442 Personal history of urinary calculi; Z86.711 Personal history of pulmonary embolism; Z68.31 Body mass index [BMI] 31.0-31.9, adult; Z83.3 Family history of diabetes mellitus; Z01.818 Encounter for other preprocedural examination; Z90.49 Acquired absence of other specified parts of digestive tract; Z90.79 Acquired absence of other genital organ(s); Z79.4 Long term (current) use of insulin; Z79.01 Long term (current) use of anticoagulants; Z79.899 Other long term (current) drug therapy
CPT/HCPCS: 97161; 64473; 85025; 73501; 27130; C1776; J2250; J1100; J2175; J2405; J0690; J3010; J2795; J1171 ×2; J1596; J3373; 71045; 83036